=== PATIENT | male | born 1965 | race African-American/Black ===

== ENCOUNTER 2017-01-26 22:05 | Emergency (ER) | payer SELFPAY ==
[~2017-01-26] VITALS: Ht 175.3 cm; Wt 86.2 kg
[2017-01-26 22:31] LABS: BASO # 0.1 x10^3/uL (0.0-0.2); BASO % 1 % (0-3); EOS % 4 % (0-3); HEMATOCRIT 38.3 % (39.0-53.0); HEMOGLOBIN 12.9 g/dL (13.0-17.5); LYMPH # 2.2 x10^3/uL (1.0-4.8); LYMPH % 34 % (24-48); MEAN CORPUSCULAR HEMOGLOBIN 31 pg (25-35); MEAN CORPUSCULAR HGB CONC 34 g/dL (31-37); MEAN CORPUSCULAR VOLUME 92 fL (79-100); MONO % 9 % (0-9); NEUT % 52 % (31-73); PLATELET COUNT 193 x10^3/uL (140-400); RED BLOOD COUNT 4.17 x10^6/uL (4.30-5.70); RED CELL DISTRIBUTION WIDTH 14.3 % (11.5-14.5); WHITE BLOOD COUNT 6.5 x10^3/uL (4.0-11.0)
[2017-01-26 22:33] LABS: BILIRUBIN,URINE NEGATIVE (NEG); GLUCOSE,URINE 100 mg/dL (NEG); NITRITE,URINE NEGATIVE (NEG); PROTEIN,URINE >=300 mg/dL (NEG-TRACE)
[2017-01-26 22:41] LABS: PROTHROMBIN TIME PATIENT 12.4 SEC (11.7-14.0)
[2017-01-26 22:42] LABS: CALCIUM 8.7 mg/dL (8.5-10.1); CREATININE 2.4 mg/dL (0.7-1.3)
[2017-01-26 22:47] LABS: ALBUMIN 2.9 g/dL (3.4-5.0); ALBUMIN/GLOBULIN RATIO 0.6 (1.0-1.7); TOTAL BILIRUBIN 0.4 mg/dL (0.2-1.0); TOTAL PROTEIN 7.7 g/dL (6.4-8.2)
[2017-01-26 22:48] LABS: GFR 34.7
[2017-01-26 22:49] LABS: BACTERIA,URINE FEW /HPF (0-FEW); RBC,URINE TNTC /HPF (0-2); SQUAMOUS EPITHELIAL CELL,UR FEW /LPF; WBC,URINE >40 /HPF (0-4)
[2017-01-26] MEDS ORDERED: IV NORMAL SALINE 1000ML BAG 1,000 ML IV ONE (23:15)
[2017-01-26 23:17] VITALS: BP 173/100
[2017-01-26] MEDS ORDERED: PHENAZOPYRIDINE 200 MG TABLET. PO ONE (23:30)
--- NOTE | 2017-01-26 23:30 | PHYS DOC ---
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 Patient has history of CVA and arrhythmia is currently on Elkus. Denies fever, chills, nausea vomiting and sweats. No flank pain, lower abdominal pain, urinary retention. Denies history is of kidney stones. Patient denies previous urinary tract infections, STI's or prostatitis. No other acute symptoms or complaints. Review of Systems Review of Systems Review symptoms as per history of present illness. Current Medications Current Medications Current Medications Medications (Trade) Dose Ordered Sig/Melania Start Time Stop Time Status Last Admin Dose Admin Ceftriaxone Sodium 1 gm/ Sodium Chloride 50 ml @ 100 mls/hr Q24H 01/27/17 23:00 Ceftriaxone Sodium 50 ml @ 100 mls/hr 1X ONCE 01/26/17 23:30 01/26/17 23:59 DC 01/26/17 23:16 100 MLS/HR Phenazopyridine HCl (Pyridium) 200 mg 1X ONCE 01/26/17 23:30 01/26/17 23:31 DC 01/26/17 23:17 200 MG Sodium Chloride 1,000 ml @ 1,000 mls/hr 1X ONCE 01/26/17 23:15 01/27/17 00:14 01/26/17 23:17 1,000 MLS/HR Allergies Allergies Allergies Coded Allergies Type Severity Reaction Last Updated Verified vancomycin Allergy Intermediate 01/26/17 Yes Physical Exam Physical Exam Constitutional: Well developed, well nourished, no acute distress, non-toxic appearance. [] HENT: Normocephalic, atraumatic, bilateral external ears normal, oropharynx moist, no oral exudates, nose normal. [] Eyes: PERRLA, EOMI, conjunctiva normal, no discharge. [] Neck: Normal range of motion, no tenderness, supple, no stridor. [] Cardiovascular:Heart rate regular rhythm, no murmur [] Lungs & Thorax: Bilateral breath sounds clear to auscultation [] Abdomen: Bowel sounds normal, soft, suprapubic pain, tenderness. [] Skin: Warm, dry, no erythema, no rash. [] Back: No tenderness, no CVA tenderness. [] Extremities: No tenderness, left lower extremity walking boot[] Neurologic: Alert and oriented X 3, normal motor function, normal sensory function, no focal deficits noted. [] Psychologic: Affect normal, judgement normal, mood normal. [] Current Patient Data Vital Signs Vital Signs Date Time Temp Pulse Resp B/P (MAP) Pulse Ox O2 Delivery O2 Flow Rate FiO2 01/26/17 23:17 86 25 173/100 (124) 99 Room Air 01/26/17 22:20 98.4 98.4 Lab Values Laboratory Tests Test 01/26/17 22:00 01/26/17 22:23 Urine Collection Type Unknown Urine Color Yi Urine Clarity Cloudy Urine pH 6.0 Urine Specific [place] 1.020 Urine Protein >=300 mg/dL (NEG-TRACE) Urine Glucose (UA) 100 mg/dL (NEG) Urine Ketones (Stick) Negative mg/dL (NEG) Urine Blood Large (NEG) Urine Nitrite Negative (NEG) Urine Bilirubin Negative (NEG) Urine Urobilinogen Dipstick 1.0 mg/dL (0.2 mg/dL) Urine Leukocyte Esterase Moderate (NEG) Urine RBC Tntc /HPF (0-2) Urine WBC >40 /HPF (0-4) Urine Squamous Epithelial Cells Few /LPF Urine Bacteria Few /HPF (0-FEW) Urine Hyaline Casts Moderate /HPF White Blood Count 6.5 x10^3/uL (4.0-11.0) Red Blood Count 4.17 x10^6/uL (4.30-5.70) L Hemoglobin 12.9 g/dL (13.0-17.5) L Hematocrit 38.3 % (39.0-53.0) L Mean Corpuscular Volume 92 fL (79-100) Mean Corpuscular Hemoglobin 31 pg (25-35) Mean Corpuscular Hemoglobin Concent 34 g/dL (31-37) Red Cell Distribution Width 14.3 % (11.5-14.5) Platelet Count 193 x10^3/uL (140-400) Neutrophils (%) (Auto) 52 % (31-73) Lymphocytes (%) (Auto) 34 % (24-48) Monocytes (%) (Auto) 9 % (0-9) Eosinophils (%) (Auto) 4 % (0-3) H Basophils (%) (Auto) 1 % (0-3) Neutrophils # (Auto) 3.4 x10^3uL (1.8-7.7) Lymphocytes # (Auto) 2.2 x10^3/uL (1.0-4.8) Monocytes # (Auto) 0.6 x10^3/uL (0.0-1.1) Eosinophils # (Auto) 0.2 x10^3/uL (0.0-0.7) Basophils # (Auto) 0.1 x10^3/uL (0.0-0.2) Prothrombin Time 12.4 SEC (11.7-14.0) Prothrombin Time INR 1.0 (0.8-1.1) Sodium Level 139 mmol/L (136-145) Potassium Level 4.0 mmol/L (3.5-5.1) Chloride Level 103 mmol/L (98-107) Carbon Dioxide Level 31 mmol/L (21-32) Anion Gap 5 (6-14) L Blood Urea Nitrogen 23 mg/dL (8-26) Creatinine 2.4 mg/dL (0.7-1.3) H Estimated GFR (Cockcroft-Gault) 34.7 BUN/Creatinine Ratio 10 (6-20) Glucose Level 193 mg/dL (70-99) H Calcium Level 8.7 mg/dL (8.5-10.1) Total Bilirubin 0.4 mg/dL (0.2-1.0) Aspartate Amino Transferase (AST) 17 U/L (15-37) Alanine Aminotransferase (ALT) 23 U/L (16-63) Alkaline Phosphatase 149 U/L (46-116) H Total Protein 7.7 g/dL (6.4-8.2) Albumin 2.9 g/dL (3.4-5.0) L Albumin/Globulin Ratio 0.6 (1.0-1.7) L Laboratory Tests 01/26/17 22:23 Laboratory Tests 01/26/17 22:23 EKG EKG [] Radiology/Procedures Radiology/Procedures [] Course & Med Decision Making Course & Med Decision Making Pertinent Labs and Imaging studies reviewed. (See chart for details) [Patient with hematuria with probable urinary tract infection. No evidence of urinary retention. IV fluids antibiotics given. Patient is on Eloquis. He is instructed to up with PCP or urologist and real estate developer at [facility] regarding continuing Eloquis. In the meantime, he is instructed that should he develop new or worsening symptoms that he must return to the emergency department. Patient verbalizes understanding and agreement with discharge instructions prior to departure. Dragon Disclaimer Dragon Disclaimer This electronic medical record was generated, in whole or in part, using a voice recognition dictation system. Departure Departure Impression: Primary Impression: Hematuria Additional Impression: Urinary tract infection Disposition: HOME, SELF-CARE Condition: GOOD Referrals: NO PCP (PCP) Problem Qualifiers BRIAN OVIEDO DO Jan 26, 2017 23:30
== END 2017-01-27 00:30 | disposition home or self-care (01) ==
LOC: ER 22:47
DX: N39.0 Urinary tract infection, site not specified (principal); E10.9 Type 1 diabetes mellitus without complications; Z88.1 Allergy status to other antibiotic agents; Z86.73 Personal history of transient ischemic attack (TIA), and cerebral infarction without residual deficits; Z89.422 Acquired absence of other left toe(s)
CPT/HCPCS: 36415; 80053; 81001; 85025; 85610; 87086; 96365; 99284; J0690; J7030

== ENCOUNTER 2017-07-15 16:51 | Inpatient (IN) | payer OTHER, BC ==
[2017-07-15 17:33] LABS: ADD MAN DIFF? NO
[2017-07-15 17:35] LABS: BASO % 1 % (0-3); EOS # 0.2 x10^3/uL (0.0-0.7); EOS % 4 % (0-3); HEMATOCRIT 31.5 % (39.0-53.0); HEMOGLOBIN 10.6 g/dL (13.0-17.5); LYMPH # 1.8 x10^3/uL (1.0-4.8); LYMPH % 30 % (24-48); MEAN CORPUSCULAR HEMOGLOBIN 31 pg (25-35); MEAN CORPUSCULAR HGB CONC 34 g/dL (31-37); MEAN CORPUSCULAR VOLUME 91 fL (79-100); MONO # 0.4 x10^3/uL (0.0-1.1); MONO % 7 % (0-9); NEUT # 3.4 x10^3uL (1.8-7.7); NEUT % 58 % (31-73); PLATELET COUNT 207 x10^3/uL (140-400); RED BLOOD COUNT 3.45 x10^6/uL (4.30-5.70); RED CELL DISTRIBUTION WIDTH 14.3 % (11.5-14.5); WHITE BLOOD COUNT 5.9 x10^3/uL (4.0-11.0)
[2017-07-15] MEDS: hydrALAZINE 20 MG/ML VIAL. IVP (17:35)
[2017-07-15 17:43] LABS: BILIRUBIN,URINE NEGATIVE (NEG); CLARITY,URINE CLEAR; COLOR,URINE YELLOW; GLUCOSE,URINE 250 mg/dL (NEG); NITRITE,URINE NEGATIVE (NEG); PH,URINE 5.5; PROTEIN,URINE >=300 mg/dL (NEG-TRACE); UROBILINOGEN,URINE 0.2 mg/dL (0.2 mg/dL)
[2017-07-15 17:51] LABS: ANION GAP 11 (6-14); BLOOD UREA NITROGEN 20 mg/dL (8-26); CALCIUM 8.8 mg/dL (8.5-10.1); CARBON DIOXIDE 25 mmol/L (21-32); CHLORIDE 103 mmol/L (98-107); CREATININE 1.7 mg/dL (0.7-1.3); GFR 51.7; GLUCOSE 199 mg/dL (70-99); MAGNESIUM 1.7 mg/dL (1.8-2.4); POTASSIUM 3.7 mmol/L (3.5-5.1); SODIUM 139 mmol/L (136-145)
[2017-07-15 17:56] LABS: BARBITURATES NEG (NEG); BENZODIAZEPINES NEG (NEG); CANNABINOIDS NEG (NEG); COCAINE NEG (NEG); METHADONE NEG (NEG); OPIATES NEG (NEG); PHENCYCLIDINE NEG (NEG)
[2017-07-15 18:02] LABS: AMPHETAMINE/METHAMPHETAMINE NEG (NEG); ETHANOL, URINE NEG (NEG)
[2017-07-15 18:04] LABS: BACTERIA,URINE 0 /HPF (0-FEW); RBC,URINE OCC /HPF (0-2); WBC,URINE 0 /HPF (0-4)
[2017-07-15 18:19] LABS: TROPONINI 1.255 ng/mL (0.000-0.055)
[2017-07-15 18:22] LABS: CKMB INDEX 1.6 % (0-4); CKMB MASS 2.4 ng/mL (0.0-3.6); CREATINE KINASE 148 U/L (39-308)
[2017-07-15 19:08] LABS: ALBUMIN 2.9 g/dL (3.4-5.0); ALK PHOS 139 U/L (46-116); ALT (SGPT) 21 U/L (16-63); AST (SGOT) 20 U/L (15-37); DIRECT BILIRUBIN 0.1 mg/dL (0.0-0.2); TOTAL BILIRUBIN 0.5 mg/dL (0.2-1.0); TOTAL PROTEIN 7.7 g/dL (6.4-8.2)
[2017-07-15] MEDS ORDERED: IV NORMAL SALINE 1000ML BAG 1,000 ML IV (19:41)
[2017-07-15] MEDS ORDERED: ACETAMINOPHEN 325 MG TABLET. PO (19:45)
[2017-07-15] MEDS ORDERED: ONDANSETRON PF 4 MG/2 ML VIAL. IV (19:45)
[2017-07-15 21:00] LABS: POC GLUCOSE 230 mg/dL (70-99)
[2017-07-15] MEDS ORDERED: DEXTROSE 50% 25 GM / 50ML DISP.SYRIN. IV (21:15)
[2017-07-15] MEDS: INSULIN DETEMIR 300 UNITS/3 ML INSULN.PEN. SQ (21:57)
[2017-07-15] MEDS: INSULIN ASPART 300 UNITS/3 ML INSULN.PEN SQ ×2 (22:15→22:16)
[2017-07-15 22:55] LABS: TROPONINI 1.176 ng/mL (0.000-0.055)
[2017-07-16] MEDS ORDERED: HYDROcodone/APAP 7.5/325MG 1 TAB TABLET PO (00:15)
[2017-07-16] MEDS ORDERED: traMADol 50 MG TABLET PO (00:15)
[2017-07-16] MEDS ORDERED: DOCUSATE SODIUM 100 MG CAPSULE. PO (00:15)
[2017-07-16 01:52] LABS: ADD MAN DIFF? NO
[2017-07-16 01:54] LABS: BASO # 0.1 x10^3/uL (0.0-0.2); BASO % 1 % (0-3); EOS # 0.2 x10^3/uL (0.0-0.7); EOS % 4 % (0-3); HEMATOCRIT 30.1 % (39.0-53.0); HEMOGLOBIN 10.4 g/dL (13.0-17.5); LYMPH # 1.5 x10^3/uL (1.0-4.8); LYMPH % 25 % (24-48); MEAN CORPUSCULAR HEMOGLOBIN 31 pg (25-35); MEAN CORPUSCULAR HGB CONC 35 g/dL (31-37); MEAN CORPUSCULAR VOLUME 90 fL (79-100); MONO # 0.4 x10^3/uL (0.0-1.1); MONO % 7 % (0-9); NEUT # 3.8 x10^3uL (1.8-7.7); NEUT % 63 % (31-73); PLATELET COUNT 208 x10^3/uL (140-400); RED BLOOD COUNT 3.34 x10^6/uL (4.30-5.70); RED CELL DISTRIBUTION WIDTH 14.5 % (11.5-14.5); WHITE BLOOD COUNT 6.1 x10^3/uL (4.0-11.0)
[2017-07-16 02:09] LABS: ANION GAP 9 (6-14); BLOOD UREA NITROGEN 26 mg/dL (8-26); CALCIUM 8.4 mg/dL (8.5-10.1); CARBON DIOXIDE 26 mmol/L (21-32); CHLORIDE 107 mmol/L (98-107); CREATININE 1.9 mg/dL (0.7-1.3); GFR 45.4; GLUCOSE 129 mg/dL (70-99); POTASSIUM 3.6 mmol/L (3.5-5.1); SODIUM 142 mmol/L (136-145)
[2017-07-16 02:19] LABS: TROPONINI 1.065 ng/mL (0.000-0.055)
[2017-07-16] MEDS: ANTI-COAG MONITOR BY PHARMACY. MC ×2 (03:46→14:28)
[2017-07-16] MEDS: INSULIN ASPART 300 UNITS/3 ML INSULN.PEN SQ ×7 (07:30→21:00)
[2017-07-16 08:45] LABS: POC GLUCOSE 110 mg/dL (70-99)
[2017-07-16] MEDS: LISINOPRIL 20 MG TABLET PO ×2 (08:56→21:05)
[2017-07-16] MEDS: CARVEDILOL 12.5 MG TABLET. PO ×2 (08:57→18:03)
[2017-07-16] MEDS: PANTOPRAZOLE 40 MG TABLET.DR. PO (08:58)
[2017-07-16] MEDS: APIXABAN 5 MG TABLET. PO ×2 (08:58→21:06)
[2017-07-16] MEDS: amLODIPine BESYLATE 5 MG TABLET PO ×2 (08:59→18:02)
[2017-07-16 09:25] LABS: CHOLESTEROL 211 mg/dL (0-200); HDLC 38 mg/dL (40-60); LDLC 130 mg/dL (0-100); NON-HDL CHOLESTEROL 173 mg/dL (0-129); TRIGLYCERIDES 213 mg/dL (0-150); VLDLC 43 mg/dL (0-40)
[2017-07-16 09:25] LABS: MAGNESIUM 1.8 mg/dL (1.8-2.4)
[2017-07-16 09:27] LABS: CHOLESTEROL/HDL RATIO 5.6
[2017-07-16 09:34] LABS: THYROID STIM HORMONE (TSH) 1.107 uIU/mL (0.358-3.74)
[2017-07-16 12:32] LABS: POC GLUCOSE 245 mg/dL (70-99)
[2017-07-16] MEDS ORDERED: MAGNESIUM SULFATE 2GM 50 ML IV (16:00)
[2017-07-16 17:46] LABS: POC GLUCOSE 90 mg/dL (70-99)
[2017-07-16 18:16] LABS: HEMOGLOBIN A1C 8.3 % (4.8-5.6)
[2017-07-16] MEDS ORDERED: ATORVASTATIN CALCIUM 10 MG TABLET. PO (21:00)
[2017-07-16] MEDS: ATORVASTATIN CALCIUM 40 MG TABLET. PO (21:05)
[2017-07-16] MEDS: INSULIN DETEMIR 300 UNITS/3 ML INSULN.PEN. SQ (21:10)
[2017-07-16 21:17] LABS: POC GLUCOSE 221 mg/dL (70-99)
[2017-07-16 23:11] LABS: MRSA BY PCR Negative (Negative)
[2017-07-17 03:51] LABS: HEMOGLOBIN 9.3 g/dL (13.0-17.5)
[2017-07-17 04:12] LABS: ALBUMIN 2.3 g/dL (3.4-5.0); ANION GAP 9 (6-14); BLOOD UREA NITROGEN 27 mg/dL (8-26); CALCIUM 8.2 mg/dL (8.5-10.1); CARBON DIOXIDE 24 mmol/L (21-32); CHLORIDE 106 mmol/L (98-107); CREATININE 2.3 mg/dL (0.7-1.3); GFR 36.5; GLUCOSE 195 mg/dL (70-99); MAGNESIUM 1.8 mg/dL (1.8-2.4); PHOSPHORUS 3.7 mg/dL (2.6-4.7); POTASSIUM 4.2 mmol/L (3.5-5.1); SODIUM 139 mmol/L (136-145)
[2017-07-17] MEDS: INSULIN ASPART 300 UNITS/3 ML INSULN.PEN SQ ×7 (07:30→21:00)
[2017-07-17] MEDS: ANTI-COAG MONITOR BY PHARMACY. MC (08:36)
[2017-07-17 08:42] LABS: POC GLUCOSE 126 mg/dL (70-99)
[2017-07-17] MEDS: REGADENOSON 0.4 MG/5 ML DISP.SYRIN. IV (10:18)
[2017-07-17] MEDS: PANTOPRAZOLE 40 MG TABLET.DR. PO (11:39)
[2017-07-17] MEDS: APIXABAN 5 MG TABLET. PO ×2 (11:39→21:12)
[2017-07-17] MEDS: ASPIRIN ENTERIC COATED 81 MG TABLET.DR. PO (11:39)
[2017-07-17] MEDS: CARVEDILOL 12.5 MG TABLET. PO ×2 (11:40→17:43)
[2017-07-17] MEDS: LISINOPRIL 20 MG TABLET PO ×2 (11:40→21:12)
[2017-07-17] MEDS: amLODIPine BESYLATE 10 MG TABLET PO (11:41)
[2017-07-17 17:41] LABS: POC GLUCOSE 322 mg/dL (70-99)
[2017-07-17] MEDS: ATORVASTATIN CALCIUM 40 MG TABLET. PO (21:12)
[2017-07-17 21:39] LABS: POC GLUCOSE 61 mg/dL (70-99)
[2017-07-17 21:39] LABS: POC GLUCOSE 58 mg/dL (70-99)
[2017-07-17 21:39] LABS: POC GLUCOSE 71 mg/dL (70-99)
[2017-07-17] MEDS: INSULIN DETEMIR 300 UNITS/3 ML INSULN.PEN. SQ (23:11)
[2017-07-17 23:12] LABS: POC GLUCOSE 124 mg/dL (70-99)
[2017-07-18 05:45] LABS: ALBUMIN 2.4 g/dL (3.4-5.0); ANION GAP 5 (6-14); BLOOD UREA NITROGEN 29 mg/dL (8-26); CALCIUM 8.1 mg/dL (8.5-10.1); CARBON DIOXIDE 27 mmol/L (21-32); CHLORIDE 110 mmol/L (98-107); CREATININE 2.1 mg/dL (0.7-1.3); GFR 40.5; GLUCOSE 111 mg/dL (70-99); MAGNESIUM 1.8 mg/dL (1.8-2.4); PHOSPHORUS 4.1 mg/dL (2.6-4.7); POTASSIUM 4.1 mmol/L (3.5-5.1); SODIUM 142 mmol/L (136-145)
[2017-07-18] MEDS: INSULIN ASPART 300 UNITS/3 ML INSULN.PEN SQ ×6 (07:30→18:04)
[2017-07-18 08:13] LABS: POC GLUCOSE 46 mg/dL (70-99)
[2017-07-18] MEDS: CARVEDILOL 12.5 MG TABLET. PO ×2 (09:15→18:00)
[2017-07-18] MEDS: amLODIPine BESYLATE 10 MG TABLET PO (09:15)
[2017-07-18] MEDS: LISINOPRIL 20 MG TABLET PO (09:15)
[2017-07-18] MEDS: ASPIRIN ENTERIC COATED 81 MG TABLET.DR. PO (09:15)
[2017-07-18] MEDS: PANTOPRAZOLE 40 MG TABLET.DR. PO (09:15)
[2017-07-18] MEDS: APIXABAN 5 MG TABLET. PO (09:15)
[2017-07-18 11:38] LABS: POC GLUCOSE 73 mg/dL (70-99)
[2017-07-18 11:48] LABS: POC GLUCOSE 194 mg/dL (70-99)
[2017-07-18 12:17] LABS: IMMUNOGLOBULIN A 234 mg/dL (90-386); IMMUNOGLOBULIN G 1518 mg/dL (700-1600); IMMUNOGLOBULIN M 121 mg/dL (20-172)
[2017-07-18 17:10] LABS: POC GLUCOSE 219 mg/dL (70-99)
[2017-07-18 18:12] LABS: PROTEIN 24 HR UR 5092 (30-150); UR PROTEIN 214.4 mg/dL (Not Estab.)
[2017-07-18] MEDS ORDERED: LISINOPRIL 20 MG TABLET PO (21:00)
[2017-07-19 20:10] LABS: TOTAL PROTEIN CREATININE RATIO 3417 mg/g creat (0-200); UR CREATININE RD 61.7 mg/dL (Not Estab.); UR PROTEIN RD 210.8 mg/dL (Not Estab.)
[2017-07-21 14:14] LABS: METANEPH UR 50 ug/L (Undefined); NORMETANEPHRINES UR 208 ug/L (Undefined); TOTAL METANEPHRINES UR 119 ug/24 hr (45-290)
== END 2017-07-18 18:10 | disposition home or self-care (01) | DRG 682 ==
LOC: 2 NORTH 07-17 13:34 → ER 16:51 → 1 WEST ICU 19:29
DX: I12.9 Hypertensive chronic kidney disease with stage 1 through stage 4 chronic kidney disease, or unspecified chronic kidney disease (principal); I21.A1 Myocardial infarction type 2; N17.9 Acute kidney failure, unspecified; J81.1 Chronic pulmonary edema; E44.0 Moderate protein-calorie malnutrition; E10.22 Type 1 diabetes mellitus with diabetic chronic kidney disease; I48.0 Paroxysmal atrial fibrillation; I69.351 Hemiplegia and hemiparesis following cerebral infarction affecting right dominant side; E78.5 Hyperlipidemia, unspecified; F17.290 Nicotine dependence, other tobacco product, uncomplicated; J40 Bronchitis, not specified as acute or chronic; N18.9 Chronic kidney disease, unspecified; Z79.01 Long term (current) use of anticoagulants; Z79.4 Long term (current) use of insulin; Z79.899 Other long term (current) drug therapy; Z91.19 Patient's noncompliance with other medical treatment and regimen; M19.90 Unspecified osteoarthritis, unspecified site; Z68.29 Body mass index [BMI] 29.0-29.9, adult
CPT/HCPCS: 36415; 71045; 76770; 78452; 80048; 80061; 80069; 80076; 80307; 81001; 82553; 82570; 82962; 83036; 83735; 83835; 84156; 84166; 84443; 84484; 85018; 85025; 86334; 87641; 93005; 93017; 93306; 93975; 96374; 96375; 96376; 99291-25; A9500; J0360; J1815; J2785; J7050

== ENCOUNTER 2017-10-02 02:26 | Inpatient (IN) | payer BC, OTHER ==
[2017-10-02 03:08] LABS: BASO % 0 % (0-3); EOS % 1 % (0-3); HEMATOCRIT 28.8 % (39.0-53.0); LYMPH # 0.3 x10^3/uL (1.0-4.8); LYMPH % 8 % (24-48); MEAN CORPUSCULAR HEMOGLOBIN 31 pg (25-35); MEAN CORPUSCULAR HGB CONC 35 g/dL (31-37); MEAN CORPUSCULAR VOLUME 89 fL (79-100); MONO % 1 % (0-9); NEUT # 3.6 x10^3uL (1.8-7.7); NEUT % 90 % (31-73); PLATELET COUNT 196 x10^3/uL (140-400); RED BLOOD COUNT 3.22 x10^6/uL (4.30-5.70); RED CELL DISTRIBUTION WIDTH 14.7 % (11.5-14.5)
[2017-10-02 03:15] LABS: ADD MAN DIFF? YES
[2017-10-02 03:24] LABS: ANION GAP 11 (6-14); BLOOD UREA NITROGEN 20 mg/dL (8-26); BUN/CREATININE RATIO 10 (6-20); CALCIUM 8.1 mg/dL (8.5-10.1); CARBON DIOXIDE 26 mmol/L (21-32); CHLORIDE 106 mmol/L (98-107); GFR 42.8; GLUCOSE 69 mg/dL (70-99); POTASSIUM 3.1 mmol/L (3.5-5.1); SODIUM 143 mmol/L (136-145)
[2017-10-02 03:32] LABS: LACTIC ACID 1.2 mmol/L (0.4-2.0)
[2017-10-02 03:34] LABS: TROPONINI 0.407 ng/mL (0.000-0.055)
[2017-10-02] MEDS: ACETAMINOPHEN 325 MG TABLET. PO ×2 (03:35→16:35)
[2017-10-02 03:38] LABS: ALBUMIN 2.7 g/dL (3.4-5.0); ALBUMIN/GLOBULIN RATIO 0.6 (1.0-1.7); ALK PHOS 168 U/L (46-116); ALT (SGPT) 23 U/L (16-63); AST (SGOT) 21 U/L (15-37); TOTAL BILIRUBIN 0.5 mg/dL (0.2-1.0); TOTAL PROTEIN 7.6 g/dL (6.4-8.2)
[2017-10-02] MEDS: IV NORMAL SALINE 1000ML BAG 1,000 ML IV (03:45)
[2017-10-02] MEDS: ASPIRIN CHEWABLE 81 MG TABLET. PO ×2 (03:45→11:13)
[2017-10-02 04:14] LABS: % BANDS 4 % (0-9); % LYMPHS 13 % (24-48); % SEGS 83 % (35-66); PLT ESTIMATE ADEQUATE (ADEQUATE)
[2017-10-02] MEDS: IOHEXOL 300 MG/ML 100ML VIAL. IV (04:27)
[2017-10-02] MEDS ORDERED: CONTRAST GIVEN MC (04:30)
[2017-10-02] MEDS ORDERED: MORPHINE SULFATE 4 MG/ML DISP.SYRIN. IV ×2 (06:00→11:00)
[2017-10-02] MEDS ORDERED: ONDANSETRON PF 4 MG/2 ML VIAL. IV ×2 (06:00→11:00)
[2017-10-02 06:35] LABS: POC GLUCOSE 194 mg/dL (70-99)
[2017-10-02] MEDS: POTASSIUM CHLORIDE 20 MEQ TABLET.ER. PO (06:43)
[2017-10-02 07:55] LABS: POC GLUCOSE 185 mg/dL (70-99)
[2017-10-02 09:51] LABS: TROPONINI 0.378 ng/mL (0.000-0.055)
[2017-10-02 10:17] LABS: NT-PRO BNP 11099 pg/mL (0-124)
[2017-10-02] MEDS: amLODIPine BESYLATE 10 MG TABLET PO (11:00)
[2017-10-02] MEDS ORDERED: DOCUSATE SODIUM 100 MG CAPSULE. PO ×2 (11:00)
[2017-10-02] MEDS ORDERED: ACETAMINOPHEN 325 MG TABLET. PO (11:00)
[2017-10-02] MEDS ORDERED: hydrALAZINE 20 MG/ML VIAL. IVP (11:00)
[2017-10-02] MEDS ORDERED: traMADol 50 MG TABLET PO (11:00)
[2017-10-02] MEDS ORDERED: DEXTROSE 50% 25 GM / 50ML DISP.SYRIN. IV (11:15)
[2017-10-02] MEDS: MICAFUNGIN 100 MG in IV DEXTROSE 5% 100 ML IV (11:30)
[2017-10-02] MEDS: APIXABAN 5 MG TABLET. PO ×2 (11:30→21:46)
[2017-10-02 11:36] LABS: POC GLUCOSE 184 mg/dL (70-99)
[2017-10-02] MEDS: LISINOPRIL 20 MG TABLET PO ×2 (12:00→21:47)
[2017-10-02] MEDS: MEROPENEM 500 MG in IV NORMAL SALINE 50ML 50 ML IV ×2 (12:00→17:59)
[2017-10-02] MEDS: PANTOPRAZOLE 40 MG TABLET.DR. PO (12:00)
[2017-10-02] MEDS: INSULIN LISPRO 300 UNITS/3 ML INSULN.PEN. SQ ×4 (12:00→17:00)
[2017-10-02] MEDS ORDERED: HEPARIN PF for SUB-Q USE 5,000 UNIT/0.5 ML VIAL. SQ (14:00)
[2017-10-02] MEDS: FUROSEMIDE 40 MG TABLET. PO (14:50)
[2017-10-02] MEDS: DAPTOmycin 540 MG in IV NORMAL SALINE 50ML 50 ML IV (14:50)
[2017-10-02] MEDS ORDERED: ALBUTEROL SULFATE 2.5 MG/3 ML NEBU. NEB (15:30)
[2017-10-02] MEDS ORDERED: ALPRAZolam 0.25 MG TABLET PO (15:30)
[2017-10-02 17:40] LABS: POC GLUCOSE 138 mg/dL (70-99)
[2017-10-02] MEDS: CARVEDILOL 12.5 MG TABLET. PO (17:59)
[2017-10-02] MEDS: FUROSEMIDE 40 MG/4 ML VIAL. IVP (17:59)
[2017-10-02 21:07] LABS: POC GLUCOSE 221 mg/dL (70-99)
[2017-10-02] MEDS: ATORVASTATIN CALCIUM 40 MG TABLET. PO (21:47)
[2017-10-02] MEDS: INSULIN GLARGINE 300 UNITS/3 ML INSULN.PEN. SQ (21:50)
[2017-10-03] MEDS: MEROPENEM 500 MG in IV NORMAL SALINE 50ML 50 ML IV ×5 (00:09→23:57)
[2017-10-03] MEDS: HYDROcodone/APAP 7.5/325MG 1 TAB TABLET PO (04:37)
[2017-10-03] MEDS ORDERED: APIXABAN 5 MG TABLET. (07:30)
[2017-10-03] MEDS ORDERED: amLODIPine BESYLATE 10 MG TABLET (07:30)
[2017-10-03] MEDS ORDERED: PANTOPRAZOLE 40 MG TABLET.DR. PO (07:30)
[2017-10-03] MEDS ORDERED: LISINOPRIL 20 MG TABLET (07:30)
[2017-10-03] MEDS ORDERED: ASPIRIN CHEWABLE 81 MG TABLET. (07:30)
[2017-10-03] MEDS ORDERED: FUROSEMIDE 40 MG TABLET. (07:30)
[2017-10-03] MEDS ORDERED: DOCUSATE SODIUM 100 MG CAPSULE. PO (07:30)
[2017-10-03] MEDS: PANTOPRAZOLE 40 MG TABLET.DR. PO (07:30)
[2017-10-03] MEDS: CARVEDILOL 12.5 MG TABLET. PO ×2 (08:00→17:22)
[2017-10-03] MEDS: INSULIN LISPRO 300 UNITS/3 ML INSULN.PEN. SQ ×6 (08:00→17:28)
[2017-10-03] MEDS: ASPIRIN CHEWABLE 81 MG TABLET. PO (08:00)
[2017-10-03 08:13] LABS: POC GLUCOSE 107 mg/dL (70-99)
[2017-10-03 08:45] LABS: ADD MAN DIFF? NO
[2017-10-03] MEDS: APIXABAN 5 MG TABLET. PO (09:00)
[2017-10-03] MEDS: LACTOBACILLUS RHAMNOSUS GG 1 CAPSULE. PO ×2 (09:00→20:39)
[2017-10-03] MEDS: amLODIPine BESYLATE 10 MG TABLET PO (09:00)
[2017-10-03] MEDS: FUROSEMIDE 40 MG TABLET. PO (09:00)
[2017-10-03] MEDS: LISINOPRIL 20 MG TABLET PO ×2 (09:00→20:39)
[2017-10-03 09:03] LABS: ANION GAP 8 (6-14); BASO % 0 % (0-3); BLOOD UREA NITROGEN 22 mg/dL (8-26); CALCIUM 7.9 mg/dL (8.5-10.1); CARBON DIOXIDE 24 mmol/L (21-32); CHLORIDE 105 mmol/L (98-107); CREATININE 2.3 mg/dL (0.7-1.3); EOS # 0.1 x10^3/uL (0.0-0.7); EOS % 2 % (0-3); GFR 36.5; GLUCOSE 101 mg/dL (70-99); HEMATOCRIT 22.8 % (39.0-53.0); HEMOGLOBIN 7.9 g/dL (13.0-17.5); LYMPH # 0.6 x10^3/uL (1.0-4.8); LYMPH % 8 % (24-48); MEAN CORPUSCULAR HEMOGLOBIN 31 pg (25-35); MEAN CORPUSCULAR HGB CONC 35 g/dL (31-37); MEAN CORPUSCULAR VOLUME 90 fL (79-100); MONO # 0.4 x10^3/uL (0.0-1.1); MONO % 5 % (0-9); NEUT # 6.9 x10^3uL (1.8-7.7); NEUT % 85 % (31-73); PLATELET COUNT 150 x10^3/uL (140-400); RED BLOOD COUNT 2.53 x10^6/uL (4.30-5.70); RED CELL DISTRIBUTION WIDTH 14.4 % (11.5-14.5); SODIUM 137 mmol/L (136-145); WHITE BLOOD COUNT 8.1 x10^3/uL (4.0-11.0)
[2017-10-03 09:14] LABS: MAGNESIUM 1.6 mg/dL (1.8-2.4)
[2017-10-03] MEDS: POTASSIUM CHLORIDE 20 MEQ TABLET.ER. PO ×2 (10:03→11:54)
[2017-10-03] MEDS: MAGNESIUM SULFATE 2GM 50 ML IV (10:03)
[2017-10-03] MEDS ORDERED: MAGNESIUM SULFATE 2GM 50 ML IV (11:00)
[2017-10-03 11:15] LABS: POC GLUCOSE 188 mg/dL (70-99)
[2017-10-03] MEDS: MICAFUNGIN 100 MG in IV DEXTROSE 5% 100 ML IV (11:55)
[2017-10-03] MEDS: DAPTOmycin 540 MG in IV NORMAL SALINE 50ML 50 ML IV (14:00)
[2017-10-03 17:17] LABS: POC GLUCOSE 325 mg/dL (70-99)
[2017-10-03] MEDS: ATORVASTATIN CALCIUM 40 MG TABLET. PO (20:39)
[2017-10-03] MEDS: INSULIN GLARGINE 300 UNITS/3 ML INSULN.PEN. SQ (20:43)
[2017-10-03 20:53] LABS: POC GLUCOSE 349 mg/dL (70-99)
[2017-10-04] MEDS: HYDROcodone/APAP 7.5/325MG 1 TAB TABLET PO ×2 (03:40→20:54)
[2017-10-04 03:44] LABS: ADD MAN DIFF? NO
[2017-10-04 03:46] LABS: BASO % 1 % (0-3); EOS # 0.2 x10^3/uL (0.0-0.7); EOS % 5 % (0-3); HEMATOCRIT 23.4 % (39.0-53.0); HEMOGLOBIN 8.1 g/dL (13.0-17.5); LYMPH # 0.9 x10^3/uL (1.0-4.8); LYMPH % 20 % (24-48); MEAN CORPUSCULAR HEMOGLOBIN 31 pg (25-35); MEAN CORPUSCULAR HGB CONC 35 g/dL (31-37); MEAN CORPUSCULAR VOLUME 90 fL (79-100); MONO # 0.6 x10^3/uL (0.0-1.1); MONO % 12 % (0-9); NEUT # 2.9 x10^3uL (1.8-7.7); NEUT % 62 % (31-73); PLATELET COUNT 145 x10^3/uL (140-400); RED BLOOD COUNT 2.61 x10^6/uL (4.30-5.70); RED CELL DISTRIBUTION WIDTH 14.5 % (11.5-14.5); WHITE BLOOD COUNT 4.6 x10^3/uL (4.0-11.0)
[2017-10-04 03:56] LABS: ANION GAP 7 (6-14); BLOOD UREA NITROGEN 30 mg/dL (8-26); CALCIUM 7.8 mg/dL (8.5-10.1); CARBON DIOXIDE 25 mmol/L (21-32); CHLORIDE 103 mmol/L (98-107); GFR 26.8; GLUCOSE 380 mg/dL (70-99); POTASSIUM 4.4 mmol/L (3.5-5.1); SODIUM 135 mmol/L (136-145)
[2017-10-04] MEDS: MEROPENEM 500 MG in IV NORMAL SALINE 50ML 50 ML IV ×3 (05:59→18:04)
[2017-10-04 07:31] LABS: POC GLUCOSE 386 mg/dL (70-99)
[2017-10-04] MEDS: INSULIN LISPRO 300 UNITS/3 ML INSULN.PEN. SQ ×7 (08:00→17:00)
[2017-10-04] MEDS: LACTOBACILLUS RHAMNOSUS GG 1 CAPSULE. PO ×2 (08:14→20:52)
[2017-10-04] MEDS: ASPIRIN CHEWABLE 81 MG TABLET. PO (08:14)
[2017-10-04] MEDS: PANTOPRAZOLE 40 MG TABLET.DR. PO (08:14)
[2017-10-04] MEDS: traMADol 50 MG TABLET PO (08:15)
[2017-10-04] MEDS: CARVEDILOL 12.5 MG TABLET. PO ×2 (08:16→18:04)
[2017-10-04] MEDS: LISINOPRIL 20 MG TABLET PO (08:16)
[2017-10-04] MEDS: amLODIPine BESYLATE 10 MG TABLET PO (08:16)
[2017-10-04] MEDS: FUROSEMIDE 20 MG TABLET PO (08:17)
[2017-10-04] MEDS: ANTI-COAG MONITOR BY PHARMACY. MC (10:38)
[2017-10-04 10:54] LABS: POC GLUCOSE 270 mg/dL (70-99)
[2017-10-04] MEDS: APIXABAN 5 MG TABLET. PO ×2 (11:51→20:52)
[2017-10-04] MEDS: SODIUM BICARBONATE VIAL 50 MEQ in IV 1/2 NORMAL SALINE 1,000 ML IV ×2 (14:11→22:39)
[2017-10-04 17:46] LABS: POC GLUCOSE 104 mg/dL (70-99)
[2017-10-04] MEDS: ATORVASTATIN CALCIUM 40 MG TABLET. PO (20:51)
[2017-10-04] MEDS: INSULIN GLARGINE 300 UNITS/3 ML INSULN.PEN. SQ (21:00)
[2017-10-04 21:20] LABS: POC GLUCOSE 142 mg/dL (70-99)
[2017-10-05] MEDS: MEROPENEM 500 MG in IV NORMAL SALINE 50ML 50 ML IV ×5 (00:14→23:52)
[2017-10-05] MEDS: diphenhydrAMINE HCL 25 MG CAPSULE PO (03:01)
[2017-10-05 04:21] LABS: ANION GAP 9 (6-14); BLOOD UREA NITROGEN 35 mg/dL (8-26); CALCIUM 7.9 mg/dL (8.5-10.1); CARBON DIOXIDE 25 mmol/L (21-32); CHLORIDE 105 mmol/L (98-107); CREATININE 2.7 mg/dL (0.7-1.3); GFR 30.3; GLUCOSE 181 mg/dL (70-99); POTASSIUM 4.6 mmol/L (3.5-5.1); SODIUM 139 mmol/L (136-145)
[2017-10-05] MEDS: LACTOBACILLUS RHAMNOSUS GG 1 CAPSULE. PO ×2 (08:26→20:07)
[2017-10-05] MEDS: PANTOPRAZOLE 40 MG TABLET.DR. PO (08:26)
[2017-10-05] MEDS: APIXABAN 5 MG TABLET. PO ×2 (08:26→20:07)
[2017-10-05] MEDS: ASPIRIN CHEWABLE 81 MG TABLET. PO (08:26)
[2017-10-05] MEDS: amLODIPine BESYLATE 10 MG TABLET PO (08:27)
[2017-10-05] MEDS: CARVEDILOL 12.5 MG TABLET. PO ×2 (08:28→17:29)
[2017-10-05] MEDS: SODIUM BICARBONATE VIAL 50 MEQ in IV 1/2 NORMAL SALINE 1,000 ML IV (08:30)
[2017-10-05] MEDS: INSULIN LISPRO 300 UNITS/3 ML INSULN.PEN. SQ ×6 (08:32→17:38)
[2017-10-05 08:42] LABS: POC GLUCOSE 197 mg/dL (70-99)
[2017-10-05] MEDS: ANTI-COAG MONITOR BY PHARMACY. MC (11:34)
[2017-10-05 11:49] LABS: POC GLUCOSE 181 mg/dL (70-99)
[2017-10-05] MEDS ORDERED: NORMAL SALINE IV (14:00)
[2017-10-05] MEDS ORDERED: DAPTOMYCIN IV (14:00)
[2017-10-05] MEDS: NORMAL SALINE IV (14:29)
[2017-10-05] MEDS: DAPTOMYCIN IV (14:29)
[2017-10-05 15:51] LABS: % SAT IRON 15 % (15-34); IRON,SERUM 34 ug/dL (65-175)
[2017-10-05 15:54] LABS: RETIC COUNT 1.7 % (0.5-2.5)
[2017-10-05 16:11] LABS: FERRITIN 111 ng/mL (26-388)
[2017-10-05 17:15] LABS: HEMOGLOBIN A1C 8.5 % (4.8-5.6)
[2017-10-05 19:09] LABS: POC GLUCOSE 134 mg/dL (70-99)
[2017-10-05 19:18] LABS: POC GLUCOSE 161 mg/dL (70-99)
[2017-10-05] MEDS: ATORVASTATIN CALCIUM 40 MG TABLET. PO (20:07)
[2017-10-05] MEDS: DARBEPOETIN ALFA 60 MCG/0.3 ML DISP.SYRIN. SQ (20:08)
[2017-10-05 20:53] LABS: POC GLUCOSE 118 mg/dL (70-99)
[2017-10-05] MEDS: INSULIN GLARGINE 300 UNITS/3 ML INSULN.PEN. SQ (20:57)
[2017-10-05 21:14] LABS: BILIRUBIN,URINE NEGATIVE (NEG); CLARITY,URINE CLEAR; COLOR,URINE YELLOW; GLUCOSE,URINE NEGATIVE (NEG); NITRITE,URINE NEGATIVE (NEG); PH,URINE 5.5; PROTEIN,URINE 100 mg/dL (NEG-TRACE); UROBILINOGEN,URINE 0.2 mg/dL (0.2 mg/dL)
[2017-10-05 21:48] LABS: RBC,URINE OCC /HPF (0-2)
[2017-10-05 21:49] LABS: BACTERIA,URINE FEW /HPF (0-FEW); HYALINE CASTS, URINE MODERATE /HPF; SQUAMOUS EPITHELIAL CELL,UR FEW /LPF
[2017-10-06 05:18] LABS: ADD MAN DIFF? NO; BASO # 0.1 x10^3/uL (0.0-0.2); BASO % 1 % (0-3); EOS # 0.3 x10^3/uL (0.0-0.7); EOS % 7 % (0-3); HEMATOCRIT 26.4 % (39.0-53.0); LYMPH # 1.6 x10^3/uL (1.0-4.8); LYMPH % 32 % (24-48); MEAN CORPUSCULAR HEMOGLOBIN 31 pg (25-35); MEAN CORPUSCULAR HGB CONC 34 g/dL (31-37); MEAN CORPUSCULAR VOLUME 89 fL (79-100); MONO # 0.4 x10^3/uL (0.0-1.1); MONO % 9 % (0-9); NEUT # 2.5 x10^3uL (1.8-7.7); NEUT % 51 % (31-73); PLATELET COUNT 210 x10^3/uL (140-400); RED BLOOD COUNT 2.95 x10^6/uL (4.30-5.70); RED CELL DISTRIBUTION WIDTH 14.5 % (11.5-14.5); WHITE BLOOD COUNT 4.9 x10^3/uL (4.0-11.0)
[2017-10-06 05:41] LABS: ANION GAP 6 (6-14); BLOOD UREA NITROGEN 42 mg/dL (8-26); CALCIUM 8.3 mg/dL (8.5-10.1); CARBON DIOXIDE 27 mmol/L (21-32); CHLORIDE 105 mmol/L (98-107); CREATININE 2.8 mg/dL (0.7-1.3); GFR 29.1; GLUCOSE 280 mg/dL (70-99); SODIUM 138 mmol/L (136-145)
[2017-10-06 05:47] LABS: POTASSIUM 5.3 mmol/L (3.5-5.1)
[2017-10-06] MEDS: MEROPENEM 500 MG in IV NORMAL SALINE 50ML 50 ML IV ×4 (05:49→23:59)
[2017-10-06] MEDS: ASPIRIN CHEWABLE 81 MG TABLET. PO (08:05)
[2017-10-06] MEDS: LACTOBACILLUS RHAMNOSUS GG 1 CAPSULE. PO ×2 (08:05→20:15)
[2017-10-06] MEDS: PANTOPRAZOLE 40 MG TABLET.DR. PO (08:05)
[2017-10-06] MEDS: CARVEDILOL 12.5 MG TABLET. PO ×2 (08:06→17:23)
[2017-10-06] MEDS: amLODIPine BESYLATE 10 MG TABLET PO (08:07)
[2017-10-06 08:10] LABS: POC GLUCOSE 292 mg/dL (70-99)
[2017-10-06] MEDS: APIXABAN 5 MG TABLET. PO ×2 (08:10→20:15)
[2017-10-06] MEDS: INSULIN LISPRO 300 UNITS/3 ML INSULN.PEN. SQ ×6 (08:14→17:29)
[2017-10-06] MEDS: ANTI-COAG MONITOR BY PHARMACY. MC (11:01)
[2017-10-06 11:43] LABS: POC GLUCOSE 212 mg/dL (70-99)
[2017-10-06] MEDS: SODIUM POLYSTYRENE SULFONATE 15 GM/60 ML ORAL.SUSP. PO (11:50)
[2017-10-06] MEDS: IV NORMAL SALINE 1000ML BAG 1,000 ML IV (14:00)
[2017-10-06 14:14] LABS: TOTAL PROTEIN CREATININE RATIO 2196 mg/g creat (0-200); UR CREATININE RD 64.4 mg/dL (Not Estab.); UR PROTEIN RD 141.4 mg/dL (Not Estab.)
[2017-10-06 17:31] LABS: POC GLUCOSE 272 mg/dL (70-99)
[2017-10-06] MEDS: ATORVASTATIN CALCIUM 40 MG TABLET. PO (20:15)
[2017-10-06] MEDS: INSULIN GLARGINE 300 UNITS/3 ML INSULN.PEN. SQ (21:00)
[2017-10-06 21:03] LABS: POC GLUCOSE 160 mg/dL (70-99)
[2017-10-07] MEDS: IV NORMAL SALINE 1000ML BAG 1,000 ML IV ×2 (00:02→06:00)
[2017-10-07] MEDS: HYDROcodone/APAP 7.5/325MG 1 TAB TABLET PO (01:46)
[2017-10-07 03:48] LABS: ADD MAN DIFF? NO
[2017-10-07 04:24] LABS: ANION GAP 9 (6-14); BLOOD UREA NITROGEN 37 mg/dL (8-26); CARBON DIOXIDE 26 mmol/L (21-32); CHLORIDE 105 mmol/L (98-107); CREATININE 2.3 mg/dL (0.7-1.3); GFR 36.5; GLUCOSE 217 mg/dL (70-99); POTASSIUM 4.4 mmol/L (3.5-5.1); SODIUM 140 mmol/L (136-145)
[2017-10-07 04:37] LABS: BASO # 0.1 x10^3/uL (0.0-0.2); BASO % 1 % (0-3); EOS # 0.3 x10^3/uL (0.0-0.7); EOS % 5 % (0-3); HEMATOCRIT 26.1 % (39.0-53.0); LYMPH # 1.7 x10^3/uL (1.0-4.8); LYMPH % 34 % (24-48); MEAN CORPUSCULAR HEMOGLOBIN 31 pg (25-35); MEAN CORPUSCULAR HGB CONC 34 g/dL (31-37); MEAN CORPUSCULAR VOLUME 89 fL (79-100); MONO # 0.5 x10^3/uL (0.0-1.1); MONO % 9 % (0-9); NEUT # 2.6 x10^3uL (1.8-7.7); NEUT % 50 % (31-73); PLATELET COUNT 217 x10^3/uL (140-400); RED BLOOD COUNT 2.92 x10^6/uL (4.30-5.70); RED CELL DISTRIBUTION WIDTH 14.1 % (11.5-14.5); WHITE BLOOD COUNT 5.1 x10^3/uL (4.0-11.0)
[2017-10-07] MEDS: MEROPENEM 500 MG in IV NORMAL SALINE 50ML 50 ML IV (05:55)
[2017-10-07 07:54] LABS: POC GLUCOSE 201 mg/dL (70-99)
[2017-10-07] MEDS: ASPIRIN CHEWABLE 81 MG TABLET. PO (08:25)
[2017-10-07] MEDS: PANTOPRAZOLE 40 MG TABLET.DR. PO (08:26)
[2017-10-07] MEDS: APIXABAN 5 MG TABLET. PO (08:26)
[2017-10-07] MEDS: LACTOBACILLUS RHAMNOSUS GG 1 CAPSULE. PO (08:26)
[2017-10-07] MEDS: CARVEDILOL 12.5 MG TABLET. PO (08:27)
[2017-10-07] MEDS: amLODIPine BESYLATE 10 MG TABLET PO (08:27)
[2017-10-07] MEDS: INSULIN LISPRO 300 UNITS/3 ML INSULN.PEN. SQ ×4 (08:31→12:25)
[2017-10-07] MEDS ORDERED: IRON SUCROSE COMPLEX 200 MG in IV NORMAL SALINE 100ML 100 ML IV (09:00)
[2017-10-07] MEDS: IRON SUCROSE COMPLEX 200 MG in TOTAL VOLUME SYRINGE 1 ML IVP (09:12)
[2017-10-07 11:26] LABS: POC GLUCOSE 146 mg/dL (70-99)
[2017-10-07] MEDS ORDERED: NORMAL SALINE IV (14:00)
[2017-10-07] MEDS ORDERED: AMPICILLIN SODIUM 2 GM in IV NORMAL SALINE 100ML 100 ML IV (14:00)
[2017-10-07] MEDS ORDERED: DAPTOMYCIN IV (14:00)
[2017-10-07] MEDS: AMPICILLIN SODIUM IV Push 2 GM VIAL. IVP (14:26)
== END 2017-10-07 18:09 | disposition home or self-care (01) | DRG 871 ==
LOC: ER 02:26 → 2 NORTH 04:59
PROC: 02HV33Z Insertion of Infusion Device into Superior Vena Cava, Percutaneous Approach (ICD-10-PCS; principal; 2017-10-07)
PROC: B548ZZA Ultrasonography of Superior Vena Cava, Guidance (ICD-10-PCS; 2017-10-07)
DX: A41.50 Gram-negative sepsis, unspecified (principal); N17.0 Acute kidney failure with tubular necrosis; I21.4 Non-ST elevation (NSTEMI) myocardial infarction; I50.33 Acute on chronic diastolic (congestive) heart failure; I13.0 Hypertensive heart and chronic kidney disease with heart failure and stage 1 through stage 4 chronic kidney disease, or unspecified chronic kidney disease; J18.9 Pneumonia, unspecified organism; E11.22 Type 2 diabetes mellitus with diabetic chronic kidney disease; M86.8X7 Other osteomyelitis, ankle and foot; E11.69 Type 2 diabetes mellitus with other specified complication; D64.9 Anemia, unspecified; M19.90 Unspecified osteoarthritis, unspecified site; E78.5 Hyperlipidemia, unspecified; E83.42 Hypomagnesemia; E87.5 Hyperkalemia; E87.6 Hypokalemia; F41.9 Anxiety disorder, unspecified; I48.0 Paroxysmal atrial fibrillation; Z79.4 Long term (current) use of insulin; N18.3 Chronic kidney disease, stage 3 (moderate); Z86.73 Personal history of transient ischemic attack (TIA), and cerebral infarction without residual deficits; Z87.891 Personal history of nicotine dependence; Z88.1 Allergy status to other antibiotic agents; Z89.421 Acquired absence of other right toe(s); Z89.422 Acquired absence of other left toe(s); Z89.432 Acquired absence of left foot; Z91.19 Patient's noncompliance with other medical treatment and regimen; Z88.0 Allergy status to penicillin; Z88.8 Allergy status to other drugs, medicaments and biological substances
CPT/HCPCS: 36415; 36569; 71045; 71275; 73630; 73718; 78582; 80048; 80053; 81001; 82570; 82728; 82962; 83036; 83540; 83550; 83605; 83735; 83880; 84156; 84484; 85007; 85025; 85045; 87040; 87070; 87071; 87075; 87205; 93005; 96360; 96372; 96374; 99285; 99285-25; A9540; A9558; J0290; J0878; J0881; J1650; J1756; J1815; J1940; J1956; J2185; J2248; J3475; J7030; Q0163; Q9967

== ENCOUNTER 2018-08-06 16:50 | Inpatient (IN) | payer BC, MEDICARE ==
[2018-08-06] VITALS (11 sets, daily range): BP systolic 131–154; BP diastolic 35–89
[~2018-08-06] VITALS: Ht 175.3 cm; Wt 84.0 kg
[~2018-08-06 16:50] MED LIST: AMLO10TA8 PO; AMLO5TAB10 PO; APIX5TAB4 PO; ASPI-630 PO; ATOR10TA60 PO; ATOR40TA59 PO; CARV12.511 PO; DOCU100C28 PO; FERR325T14 PO; HYDR-2765 PO; HYDR-2869 PO; INSU100I13 SQ; INSU100V8 SQ; INSU200I SQ; LEVO500T59 PO; LISI-130 PO; LISI-334 PO; PANT20TA2 PO; TRAM50TA PO
[2018-08-06] MEDS ORDERED: LABETALOL 20 MG/4 ML DISP.SYRIN. IVP ONE ×2 (17:15→18:30)
[2018-08-06 17:21] LABS: CREATININE ISTAT 3.4 mg/dL (0.5-1.4); HEMOGLOBIN ISTAT 9.5 g/dL (14-18); ION CA ISTAT 1.14 mmol/L (1.13-1.32); POTASSIUM ISTAT 4.3 mmol/L (3.5-5.0)
--- NOTE | 2018-08-06 17:21 | PHYS DOC ---
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 According to the patient's mother, she received a call from some friends, that the patient had gone to their house and apparently was not acting right, questionably had a left facial droop. The patient himself states he feels fine, although he does have some mild questionable droopiness of the left side of his face. He denies any pain, including any headache, extremity numbness, weakness, or any recent injury. He does take Eliquis for past history of atrial fibrillation and reports compliance. He denies any chest pain and shortness of breath. He reports compliance with all of his medications. There are no alleviating or exacerbating factors to his symptoms otherwise. Unfortunately, the patient would not be a candidate for TPA, even if his diagnosis were confirmed to be a stroke, due to use of Eliquis. Bedside glucose is in the 230 range. Review of Systems Review of Systems Constitutional: Denies fever or chills [] Eyes: Denies change in visual acuity, redness, or eye pain [] HENT: Denies nasal congestion or sore throat [] Respiratory: Denies cough or shortness of breath [] Cardiovascular: The patient denies any shortness of breath, chest pain, palpitations, or orthopnea [] GI: Denies abdominal pain, nausea, vomiting, bloody stools or diarrhea [] : Denies dysuria or hematuria [] Musculoskeletal: Denies back pain or joint pain [] Integument: Denies rash or skin lesions [] Neurologic: Denies headache, focal weakness or sensory changes [] Endocrine: Denies polyuria or polydipsia [] All other systems were reviewed and found to be within normal limits, except as documented in this note. Current Medications Current Medications Current Medications Medications (Trade) Dose Ordered Sig/Melania Start Time Stop Time Status Last Admin Dose Admin Labetalol HCl (Normodyne Iv Push) 10 mg 1X ONCE 08/06/18 17:15 08/06/18 17:16 DC 08/06/18 17:27 10 MG Nicardipine HCl 50 mg/Sodium Chloride 250 ml @ 25 mls/hr CONT PRN 08/06/18 17:30 08/06/18 17:43 25 MLS/HR Prothrombin Complex Concent (Human) 4000 unit/ Miscellaneous 160 ml @ 8.4 mls/min 1X ONCE 08/06/18 18:30 08/06/18 18:49 Allergies Allergies Allergies Coded Allergies Type Severity Reaction Last Updated Verified piperacillin Allergy Intermediate 10/07/17 Yes tazobactam Allergy Intermediate 07/15/17 Yes vancomycin Allergy Intermediate 01/26/17 Yes Physical Exam Physical Exam PHYSICAL EXAM: CONSTITUTIONAL: Well developed, well nourished HEAD: normocephalic, atraumatic EENT: PERRL, EOMI. Conjunctivae normal color, sclerae non-icteric; moist mucous membranes. NECK: Supple, non-tender; no meningismus. LUNGS: Lungs CTA, breathing even and unlabored. Normal air movement. HEART: Regular rate and rhythm, no murmur. There is an apparent S3 gallop. CHEST: No deformity; non-tender ABDOMEN: The abdomen is soft, and non-tender, no masses or bruits. EXTREM: Normal ROM; no deformity, no calf tenderness. Normal pulses palpable in all extremities. There is a transmetatarsal amputation on the left, with edema to the left leg and surgical scars below the knee, all of which are chronic, per the patient. There is no pedal edema on the right.. SKIN: No rash; no diaphoresis NEURO: Alert; mildly slurred speech and mildly impaired cognition; there is a questionable left-sided facial droop, without complete paresis, otherwise CN's grossly intact; mild left lower extremities bilaterally, otherwise strength grossly intact without focal deficit. Sensation is grossly intact. Finger-nose- finger testing and [id number] testing are normal. Nares stroke scale score is 4. BACK: No CVA TTP. Current Patient Data Vital Signs Vital Signs Date Time Temp Pulse Resp B/P (MAP) Pulse Ox O2 Delivery O2 Flow Rate FiO2 08/06/18 17:54 82 22 98 08/06/18 17:27 198/101 08/06/18 16:55 99.1 Room Air 99.1 Lab Values Laboratory Tests Test 08/06/18 17:00 08/06/18 17:15 White Blood Count 5.5 x10^3/uL (4.0-11.0) Red Blood Count 3.17 x10^6/uL (4.30-5.70) L Hemoglobin 9.3 g/dL (13.0-17.5) L Hematocrit 28.4 % (39.0-53.0) L Mean Corpuscular Volume 90 fL (79-100) Mean Corpuscular Hemoglobin 29 pg (25-35) Mean Corpuscular Hemoglobin Concent 33 g/dL (31-37) Red Cell Distribution Width 15.7 % (11.5-14.5) H Platelet Count 220 x10^3/uL (140-400) Neutrophils (%) (Auto) 72 % (31-73) Lymphocytes (%) (Auto) 17 % (24-48) L Monocytes (%) (Auto) 7 % (0-9) Eosinophils (%) (Auto) 2 % (0-3) Basophils (%) (Auto) 1 % (0-3) Neutrophils # (Auto) 4.0 x10^3uL (1.8-7.7) Lymphocytes # (Auto) 1.0 x10^3/uL (1.0-4.8) Monocytes # (Auto) 0.4 x10^3/uL (0.0-1.1) Eosinophils # (Auto) 0.1 x10^3/uL (0.0-0.7) Basophils # (Auto) 0.1 x10^3/uL (0.0-0.2) Prothrombin Time 15.2 SEC (11.7-14.0) H Prothrombin Time INR 1.2 (0.8-1.1) H PTT 44 SEC (24-38) H Urine Collection Type Unknown Urine Color Yellow Urine Clarity Clear Urine pH 6.5 Urine Specific [place] 1.015 Urine Protein >=300 mg/dL (NEG-TRACE) Urine Glucose (UA) 250 mg/dL (NEG) Urine Ketones (Stick) Negative mg/dL (NEG) Urine Blood Small (NEG) Urine Nitrite Negative (NEG) Urine Bilirubin Negative (NEG) Urine Urobilinogen Dipstick 0.2 mg/dL (0.2 mg/dL) Urine Leukocyte Esterase Negative (NEG) Urine RBC 11-20 /HPF (0-2) Urine WBC Occ /HPF (0-4) Urine Squamous Epithelial Cells Occ /LPF Urine Bacteria 0 /HPF (0-FEW) Sodium Level 139 mmol/L (136-145) Potassium Level 4.3 mmol/L (3.5-5.1) Chloride Level 104 mmol/L (98-107) Carbon Dioxide Level 25 mmol/L (21-32) Anion Gap 10 (6-14) 18 mmol/L (6-14) H Blood Urea Nitrogen 44 mg/dL (8-26) H Creatinine 3.5 mg/dL (0.7-1.3) H Estimated GFR (Cockcroft-Gault) 22.4 BUN/Creatinine Ratio 13 (6-20) Glucose Level 235 mg/dL (70-99) H 231 mg/dL (70-99) H Lactic Acid Level 0.9 mmol/L (0.4-2.0) Calcium Level 8.6 mg/dL (8.5-10.1) Magnesium Level Pending Total Bilirubin Pending Aspartate Amino Transferase (AST) Pending Alanine Aminotransferase (ALT) Pending Alkaline Phosphatase Pending Total Protein Pending Albumin Pending Albumin/Globulin Ratio Pending Urine Opiates Screen Neg (NEG) Urine Methadone Screen Neg (NEG) Urine Barbiturates Neg (NEG) Urine Phencyclidine Screen Neg (NEG) Urine Amphetamine/Methamphetamine Neg (NEG) Urine Benzodiazepines Screen Neg (NEG) Urine Cocaine Screen Neg (NEG) Urine Cannabinoids Screen Neg (NEG) Urine Ethyl Alcohol Neg (NEG) POC Hemoglobin 9.5 g/dL (14-18) L POC Hematocrit 28 % (37-52) L POC Sodium 140 mmol/L (135-145) POC Potassium 4.3 mmol/L (3.5-5.0) POC Chloride 107 mmol/L (98-110) POC Total CO2 20 mmol/L (23-32) L POC Blood Urea Nitrogen 40 mg/dL (8-26) H POC Creatinine 3.4 mg/dL (0.5-1.4) H POC Ionized Calcium ([place]) 1.14 mmol/L (1.13-1.32) Laboratory Tests 08/06/18 17:00 Laboratory Tests 08/06/18 17:00 08/06/18 17:15 EKG EKG [Normal sinus rhythm at a rate of 85 beats for minute, left axis deviation, normal intervals, left ventricular hypertrophy with repolarization abnormality in lateral T wave inversion without acute ischemic ST/T changes.] Radiology/Procedures Radiology/Procedures [ER Physician preliminary chest x-ray interpretation: Cardiomegaly with mild central congestion without acute infiltrate.] ER physician preliminary head CT interpretation: Right anterior periventricular bleed, likely hypertensive. Course & Med Decision Making Course & Med Decision Making Pertinent Labs and Imaging studies reviewed. (See chart for details) [5:30 PM: I reviewed the patient's CT scan he does appear to have a periventricular hemorrhage on the right side, I have paged neurosurgery and requested [facility] from pharmacy, and will admit patient to ICU. Hospitalist paged. Pt confirms his last Eliquis dose was this morning. ] CRITICAL CARE TIME: [45] Minutes, excluding any procedures and care of other patients. Dragon Disclaimer Dragon Disclaimer This electronic medical record was generated, in whole or in part, using a voice recognition dictation system. Departure Departure Impression: Primary Impression: Intracranial hemorrhage Additional Impression: Oczov-ja-eardume renal failure Disposition: ADMITTED INPATIENT Admitting Physician: Keysha Baxter Condition: GUARDED Referrals: DOLORES SMITH JR, MD (PCP) Problem Qualifiers STIVEN DAWSON MD Aug 06, 2018 17:21
[2018-08-06 17:25] LABS: BILIRUBIN,URINE NEGATIVE (NEG); CLARITY,URINE CLEAR; COLOR,URINE YELLOW; NITRITE,URINE NEGATIVE (NEG); PH,URINE 6.5; PROTEIN,URINE >=300 mg/dL (NEG-TRACE); UROBILINOGEN,URINE 0.2 mg/dL (0.2 mg/dL)
[2018-08-06 17:30] LABS: BASO # 0.1 x10^3/uL (0.0-0.2); BASO % 1 % (0-3); EOS # 0.1 x10^3/uL (0.0-0.7); EOS % 2 % (0-3); HEMATOCRIT 28.4 % (39.0-53.0); HEMOGLOBIN 9.3 g/dL (13.0-17.5); LYMPH % 17 % (24-48); MEAN CORPUSCULAR HEMOGLOBIN 29 pg (25-35); MEAN CORPUSCULAR HGB CONC 33 g/dL (31-37); MEAN CORPUSCULAR VOLUME 90 fL (79-100); MONO # 0.4 x10^3/uL (0.0-1.1); MONO % 7 % (0-9); NEUT % 72 % (31-73); PLATELET COUNT 220 x10^3/uL (140-400); RED BLOOD COUNT 3.17 x10^6/uL (4.30-5.70); RED CELL DISTRIBUTION WIDTH 15.7 % (11.5-14.5); WHITE BLOOD COUNT 5.5 x10^3/uL (4.0-11.0)
[2018-08-06 17:32] LABS: AMPHETAMINE/METHAMPHETAMINE NEG (NEG); BARBITURATES NEG (NEG); BENZODIAZEPINES NEG (NEG); CANNABINOIDS NEG (NEG); COCAINE NEG (NEG); METHADONE NEG (NEG); OPIATES NEG (NEG); PHENCYCLIDINE NEG (NEG)
[2018-08-06 17:35] LABS: PROTHROMBIN TIME PATIENT 15.2 SEC (11.7-14.0)
[2018-08-06 17:36] LABS: SQUAMOUS EPITHELIAL CELL,UR OCC /LPF
[2018-08-06 17:37] LABS: BACTERIA,URINE 0 /HPF (0-FEW); WBC,URINE OCC /HPF (0-4)
[2018-08-06 17:47] LABS: CALCIUM 8.6 mg/dL (8.5-10.1); CREATININE 3.5 mg/dL (0.7-1.3); GFR 22.4; POTASSIUM 4.3 mmol/L (3.5-5.1)
[2018-08-06 17:58] LABS: ALBUMIN 2.7 g/dL (3.4-5.0); ALBUMIN/GLOBULIN RATIO 0.5 (1.0-1.7); MAGNESIUM 1.9 mg/dL (1.8-2.4); TOTAL BILIRUBIN 0.7 mg/dL (0.2-1.0); TOTAL PROTEIN 8.4 g/dL (6.4-8.2)
--- NOTE | 2018-08-06 18:19 | RAD ---
CT HEAD WO CONTRAST Clinical indications: Altered mental status, COMPARISON: None available. Technique: Noncontrast axial cross sectional scanning of the head was performed. PQRS compliance Statement One or more of the following individualized dose reduction techniques were utilized for this study: 1. Automated exposure control 2. Adjustment of the mA and/or kV according to patient size 3. Use of iterative reconstruction technique Findings: There is acute hyperdense intracranial hemorrhage involving the caudate nucleus and centrum semiovale on the right side. This measures 3.4 cm in greatest dimension. There is midline shift from right to left of 6.5 mm. There is compression of the adjacent right lateral ventricle. No skull fracture or pneumocephalus is seen. No opacification of the mastoid sinuses or the paranasal sinuses is seen. The maxillary sinuses are not completely seen in this study. Impression: Acute hyperdense intracranial hemorrhage involving the caudate nucleus and centrum semiovale on the right side. This may represent a hypertensive bleed or hemorrhagic infarct given it's location. Note-this critical result was called to Dr. Luis Suresh in the emergency room at 6:15 PM on August 06, 2018. Electronically signed by: Cory Thornton MD (08/06/2018 6:16 PM) [facility]
[2018-08-06] MEDS ORDERED: TOTAL VOLUME IV ONE ×2 (18:30→20:30)
[2018-08-06] MEDS ORDERED: [UNRECOGNIZED DRUG - OTHER] IV ONE ×2 (18:30→20:30)
[2018-08-06] MEDS ORDERED: HUM PROTHROMBIN CPLX IV ONE ×2 (18:30→20:30)
[2018-08-06] MEDS ORDERED: LISINOPRIL 20 MG TABLET PO SCH (21:00)
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
[2018-08-06] MEDS: CARVEDILOL 12.5 MG TABLET. PO SCH ×2 (22:00→22:06)
[2018-08-06] MEDS: ATORVASTATIN CALCIUM 40 MG TABLET. PO SCH ×2 (22:00→22:06)
[2018-08-06] MEDS: INSULIN GLARGINE 300 UNITS/3 ML INSULN.PEN. SQ SCH (22:03)
[2018-08-06] MEDS: HYDROcodone/APAP 7.5/325MG 1 TAB TABLET PO PRN (23:36)
[2018-08-07] VITALS (21 sets, daily range): BP systolic 107–174; BP diastolic 54–86
--- NOTE | 2018-08-07 00:10 | RAD ---
Indication:AMS TECHNIQUE:Portable AP chest X-ray COMPARISON:10/02 CT FINDINGS: Heart is mildly enlarged in size. Prominent bilateral bronchovascular markings are seen. No focal consolidation. No pneumothorax or pleural effusion. Visualized bony thorax is within normal limits. IMPRESSION: Findings of peribronchial edema or bronchitis. Electronically signed by: Javi Hartman DO (08/07/2018 12:06 AM) [facility]
--- NOTE | 2018-08-07 00:46 | NUR ---
2015 patient admitted from ER with dx of subdural hematoma. per ER patient mother noted facial dropping on right side of face. Some slurred speech. upon arrival to floor noted sl facial droppin, no slurred speech. A&ox4. c/o sl AL. Dr. Baxter and Tali at . Plan to watch patient overnight.
--- NOTE | 2018-08-07 02:31 | EKG ---
[facility] [address] [place] [id number] Test Date: 2018-08-06 Test Time: 17:04:22 Pat Name: STIVEN ODONNELL Department: Room: 106 1 Gender: M Student Life Coordinator: : 1965 Requested By: STIVEN DAWSON Order Number: [id number] Reading MD: Neville Asher MD Measurements Intervals Rand Rate: 85 P: 7 TN: 130 QRS: -3 QRSD: 96 T: 133 QT: 360 QTc: 433 Interpretive Statements SINUS RHYTHM LEFT ATRIAL ABNORMALITY LEFTWARD AXIS LVH WITH REPOLARIZATION ABNORMALITY Electronically Signed On 08-14-2018 9:49:08 CDT by Neville Asher MD
[2018-08-07] MEDS: HYDROcodone/APAP 7.5/325MG 1 TAB TABLET PO PRN ×3 (05:56→16:13)
[2018-08-07] MEDS ORDERED: DEXTROSE 50% 25 GM / 50ML DISP.SYRIN. IV PRN (06:30)
[2018-08-07 07:33] LABS: BASO % 1 % (0-3); EOS # 0.2 x10^3/uL (0.0-0.7); EOS % 3 % (0-3); HEMATOCRIT 24.9 % (39.0-53.0); HEMOGLOBIN 8.2 g/dL (13.0-17.5); LYMPH # 1.4 x10^3/uL (1.0-4.8); LYMPH % 28 % (24-48); MEAN CORPUSCULAR HEMOGLOBIN 30 pg (25-35); MEAN CORPUSCULAR HGB CONC 33 g/dL (31-37); MEAN CORPUSCULAR VOLUME 90 fL (79-100); MONO # 0.5 x10^3/uL (0.0-1.1); MONO % 10 % (0-9); NEUT # 2.8 x10^3uL (1.8-7.7); NEUT % 58 % (31-73); PLATELET COUNT 199 x10^3/uL (140-400); RED BLOOD COUNT 2.77 x10^6/uL (4.30-5.70); WHITE BLOOD COUNT 4.9 x10^3/uL (4.0-11.0)
[2018-08-07 07:44] LABS: CALCIUM 8.4 mg/dL (8.5-10.1); CREATININE 3.5 mg/dL (0.7-1.3); GFR 22.4
[2018-08-07] MEDS: INSULIN LISPRO 300 UNITS/3 ML INSULN.PEN. SQ SCH ×6 (08:00→17:16)
[2018-08-07] MEDS: PANTOPRAZOLE 40 MG TABLET.DR. PO SCH (09:00)
[2018-08-07] MEDS: amLODIPine BESYLATE 10 MG TABLET PO SCH (09:01)
--- NOTE | 2018-08-07 10:29 | PDOC ---
PROGRESS NOTES History of Present Illness History of Present Illness Assessment/Plan encephalopathy, acute, from acute mill oiler bleed There is associated effacement of the right lateral ventricle anteriorly with a slight right to left shift of the midline structures. 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 Intracranial hemorrhage, on Eliquis, reversal given cont ICU Acute right caudate nuclear and central semiovale hemorrhage. Metabolic encephalopathy. hypertensive urgency, BP 198/101 mmHg. Left side VII palsy. Left side weakness.. Hx of AFib on Eliquis. 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 acute renal failure with proteinuria, consult renal 35 min cc time Vitals Vitals Vital Signs Date Time Temp Pulse Resp B/P (MAP) Pulse Ox O2 Delivery O2 Flow Rate FiO2 08/07/18 09:01 73 157/82 08/07/18 09:00 14 98 Room Air 08/07/18 07:00 98.5 98.5 08/07/18 06:56 98.0 Physical Exam General: Alert, Oriented X3, Cooperative, No acute distress Heart: Regular rate, Normal S1, Other (irrr) Lungs: Clear Abdomen: Normal bowel sounds, Soft, No tenderness Extremities: No clubbing, No cyanosis, Normal pulses Skin: No rashes, No significant lesion Labs LABS CT of the head without contrast, 08/07/2018: HISTORY: Follow-up intracranial hemorrhage Comparison is made to a study from 08/06/2018. There is an acute intracranial hemorrhage presents in the anterior aspect of the right basal ganglia extending superiorly into the centrum semiovale. It measures just over 3 cm in greatest diameter on the axial scans. It appears unchanged in size and configuration since yesterday's study. There is associated effacement of the right lateral ventricle anteriorly with a slight right to left shift of the midline structures. 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 No abnormal extra-axial fluid collection or mass is seen. There is calcific plaquing of the distal internal carotid arteries. IMPRESSION: Stable acute right basal ganglia hemorrhage. PQRS Compliance Statement: One or more of the following individualized dose reduction techniques were utilized for this examination: 1. Automated exposure control Laboratory Tests Test 08/06/18 17:00 08/06/18 17:15 08/06/18 20:20 08/07/18 07:15 White Blood Count 5.5 x10^3/uL (4.0-11.0) 4.9 x10^3/uL (4.0-11.0) Red Blood Count 3.17 x10^6/uL (4.30-5.70) 2.77 x10^6/uL (4.30-5.70) Hemoglobin 9.3 g/dL (13.0-17.5) 8.2 g/dL (13.0-17.5) Hematocrit 28.4 % (39.0-53.0) 24.9 % (39.0-53.0) Mean Corpuscular Volume 90 fL (79-100) 90 fL (79-100) Mean Corpuscular Hemoglobin 29 pg (25-35) 30 pg (25-35) Mean Corpuscular Hemoglobin Concent 33 g/dL (31-37) 33 g/dL (31-37) Red Cell Distribution Width 15.7 % (11.5-14.5) 16.0 % (11.5-14.5) Platelet Count 220 x10^3/uL (140-400) 199 x10^3/uL (140-400) Neutrophils (%) (Auto) 72 % (31-73) 58 % (31-73) Lymphocytes (%) (Auto) 17 % (24-48) 28 % (24-48) Monocytes (%) (Auto) 7 % (0-9) 10 % (0-9) Eosinophils (%) (Auto) 2 % (0-3) 3 % (0-3) Basophils (%) (Auto) 1 % (0-3) 1 % (0-3) Neutrophils # (Auto) 4.0 x10^3uL (1.8-7.7) 2.8 x10^3uL (1.8-7.7) Lymphocytes # (Auto) 1.0 x10^3/uL (1.0-4.8) 1.4 x10^3/uL (1.0-4.8) Monocytes # (Auto) 0.4 x10^3/uL (0.0-1.1) 0.5 x10^3/uL (0.0-1.1) Eosinophils # (Auto) 0.1 x10^3/uL (0.0-0.7) 0.2 x10^3/uL (0.0-0.7) Basophils # (Auto) 0.1 x10^3/uL (0.0-0.2) 0.0 x10^3/uL (0.0-0.2) Prothrombin Time 15.2 SEC (11.7-14.0) Prothromb Time International Ratio 1.2 (0.8-1.1) Activated Partial Thromboplast Time 44 SEC (24-38) Urine Collection Type Unknown Urine Color Yellow Urine Clarity Clear Urine pH 6.5 Urine Specific [place] 1.015 Urine Protein >=300 mg/dL (NEG-TRACE) Urine Glucose (UA) 250 mg/dL (NEG) Urine Ketones (Stick) Negative mg/dL (NEG) Urine Blood Small (NEG) Urine Nitrite Negative (NEG) Urine Bilirubin Negative (NEG) Urine Urobilinogen Dipstick 0.2 mg/dL (0.2 mg/dL) Urine Leukocyte Esterase Negative (NEG) Urine RBC 11-20 /HPF (0-2) Urine WBC Occ /HPF (0-4) Urine Squamous Epithelial Cells Occ /LPF Urine Bacteria 0 /HPF (0-FEW) Sodium Level 139 mmol/L (136-145) 142 mmol/L (136-145) Potassium Level 4.3 mmol/L (3.5-5.1) 4.0 mmol/L (3.5-5.1) Chloride Level 104 mmol/L (98-107) 109 mmol/L (98-107) Carbon Dioxide Level 25 mmol/L (21-32) 23 mmol/L (21-32) Anion Gap 10 (6-14) 18 mmol/L (6-14) 10 (6-14) Blood Urea Nitrogen 44 mg/dL (8-26) 46 mg/dL (8-26) Creatinine 3.5 mg/dL (0.7-1.3) 3.5 mg/dL (0.7-1.3) Estimated GFR (Cockcroft-Gault) 22.4 22.4 BUN/Creatinine Ratio 13 (6-20) Glucose Level 235 mg/dL (70-99) 231 mg/dL (70-99) 88 mg/dL (70-99) Glucose (Fingerstick) 231 mg/dL (70-99) 208 mg/dL (70-99) Lactic Acid Level 0.9 mmol/L (0.4-2.0) Calcium Level 8.6 mg/dL (8.5-10.1) 8.4 mg/dL (8.5-10.1) Magnesium Level 1.9 mg/dL (1.8-2.4) Total Bilirubin 0.7 mg/dL (0.2-1.0) Aspartate Amino Transf (AST/SGOT) 15 U/L (15-37) Alanine Aminotransferase (ALT/SGPT) 22 U/L (16-63) Alkaline Phosphatase 180 U/L (46-116) Creatine Kinase 278 U/L (39-308) Creatine Kinase MB (Mass) 1.8 ng/mL (0.0-3.6) Creatine Kinase MB Relative Index 0.6 % (0-4) Troponin I Quantitative 0.477 ng/mL (0.000-0.055) EK-Ane-T-Type Natriuretic Peptide 67713 pg/mL (0-124) Total Protein 8.4 g/dL (6.4-8.2) Albumin 2.7 g/dL (3.4-5.0) Albumin/Globulin Ratio 0.5 (1.0-1.7) Thyroid Stimulating Hormone (TSH) 0.427 uIU/mL (0.358-3.74) Urine Opiates Screen Neg (NEG) Urine Methadone Screen Neg (NEG) Urine Barbiturates Neg (NEG) Urine Phencyclidine Screen Neg (NEG) Urine Amphetamine/Methamphetamine Neg (NEG) Urine Benzodiazepines Screen Neg (NEG) Urine Cocaine Screen Neg (NEG) Urine Cannabinoids Screen Neg (NEG) Urine Ethyl Alcohol Neg (NEG) Bedside Hemoglobin 9.5 g/dL (14-18) Bedside Hematocrit 28 % (37-52) Bedside Sodium 140 mmol/L (135-145) Bedside Potassium 4.3 mmol/L (3.5-5.0) Bedside Chloride 107 mmol/L (98-110) Bedside Total CO2 20 mmol/L (23-32) Bedside Blood Urea Nitrogen 40 mg/dL (8-26) Bedside Creatinine 3.4 mg/dL (0.5-1.4) Bedside Ionized Calcium ([place]) 1.14 mmol/L (1.13-1.32) Test 3/14/19 08:36 Glucose (Fingerstick) 72 mg/dL (70-99) Assessment and Plan Assessmemt and Plan Problems Medical Problems: (1) [id number] renal failure Status: Acute (2) Intracranial hemorrhage Status: Acute Comment Review of Relevant I have reviewed the following items bibi (where applicable) has been applied. Labs Laboratory Tests Test 08/06/18 17:00 08/06/18 17:15 08/06/18 20:20 08/07/18 07:15 White Blood Count 5.5 x10^3/uL (4.0-11.0) 4.9 x10^3/uL (4.0-11.0) Red Blood Count 3.17 x10^6/uL (4.30-5.70) 2.77 x10^6/uL (4.30-5.70) Hemoglobin 9.3 g/dL (13.0-17.5) 8.2 g/dL (13.0-17.5) Hematocrit 28.4 % (39.0-53.0) 24.9 % (39.0-53.0) Mean Corpuscular Volume 90 fL (79-100) 90 fL (79-100) Mean Corpuscular Hemoglobin 29 pg (25-35) 30 pg (25-35) Mean Corpuscular Hemoglobin Concent 33 g/dL (31-37) 33 g/dL (31-37) Red Cell Distribution Width 15.7 % (11.5-14.5) 16.0 % (11.5-14.5) Platelet Count 220 x10^3/uL (140-400) 199 x10^3/uL (140-400) Neutrophils (%) (Auto) 72 % (31-73) 58 % (31-73) Lymphocytes (%) (Auto) 17 % (24-48) 28 % (24-48) Monocytes (%) (Auto) 7 % (0-9) 10 % (0-9) Eosinophils (%) (Auto) 2 % (0-3) 3 % (0-3) Basophils (%) (Auto) 1 % (0-3) 1 % (0-3) Neutrophils # (Auto) 4.0 x10^3uL (1.8-7.7) 2.8 x10^3uL (1.8-7.7) Lymphocytes # (Auto) 1.0 x10^3/uL (1.0-4.8) 1.4 x10^3/uL (1.0-4.8) Monocytes # (Auto) 0.4 x10^3/uL (0.0-1.1) 0.5 x10^3/uL (0.0-1.1) Eosinophils # (Auto) 0.1 x10^3/uL (0.0-0.7) 0.2 x10^3/uL (0.0-0.7) Basophils # (Auto) 0.1 x10^3/uL (0.0-0.2) 0.0 x10^3/uL (0.0-0.2) Prothrombin Time 15.2 SEC (11.7-14.0) Prothromb Time International Ratio 1.2 (0.8-1.1) Activated Partial Thromboplast Time 44 SEC (24-38) Urine Collection Type Unknown Urine Color Yellow Urine Clarity Clear Urine pH 6.5 Urine Specific [place] 1.015 Urine Protein >=300 mg/dL (NEG-TRACE) Urine Glucose (UA) 250 mg/dL (NEG) Urine Ketones (Stick) Negative mg/dL (NEG) Urine Blood Small (NEG) Urine Nitrite Negative (NEG) Urine Bilirubin Negative (NEG) Urine Urobilinogen Dipstick 0.2 mg/dL (0.2 mg/dL) Urine Leukocyte Esterase Negative (NEG) Urine RBC 11-20 /HPF (0-2) Urine WBC Occ /HPF (0-4) Urine Squamous Epithelial Cells Occ /LPF Urine Bacteria 0 /HPF (0-FEW) Sodium Level 139 mmol/L (136-145) 142 mmol/L (136-145) Potassium Level 4.3 mmol/L (3.5-5.1) 4.0 mmol/L (3.5-5.1) Chloride Level 104 mmol/L (98-107) 109 mmol/L (98-107) Carbon Dioxide Level 25 mmol/L (21-32) 23 mmol/L (21-32) Anion Gap 10 (6-14) 18 mmol/L (6-14) 10 (6-14) Blood Urea Nitrogen 44 mg/dL (8-26) 46 mg/dL (8-26) Creatinine 3.5 mg/dL (0.7-1.3) 3.5 mg/dL (0.7-1.3) Estimated GFR (Cockcroft-Gault) 22.4 22.4 BUN/Creatinine Ratio 13 (6-20) Glucose Level 235 mg/dL (70-99) 231 mg/dL (70-99) 88 mg/dL (70-99) Glucose (Fingerstick) 231 mg/dL (70-99) 208 mg/dL (70-99) Lactic Acid Level 0.9 mmol/L (0.4-2.0) Calcium Level 8.6 mg/dL (8.5-10.1) 8.4 mg/dL (8.5-10.1) Magnesium Level 1.9 mg/dL (1.8-2.4) Total Bilirubin 0.7 mg/dL (0.2-1.0) Aspartate Amino Transf (AST/SGOT) 15 U/L (15-37) Alanine Aminotransferase (ALT/SGPT) 22 U/L (16-63) Alkaline Phosphatase 180 U/L (46-116) Creatine Kinase 278 U/L (39-308) Creatine Kinase MB (Mass) 1.8 ng/mL (0.0-3.6) Creatine Kinase MB Relative Index 0.6 % (0-4) Troponin I Quantitative 0.477 ng/mL (0.000-0.055) UC-[place]-H-Type Natriuretic Peptide 91159 pg/mL (0-124) Total Protein 8.4 g/dL (6.4-8.2) Albumin 2.7 g/dL (3.4-5.0) Albumin/Globulin Ratio 0.5 (1.0-1.7) Thyroid Stimulating Hormone (TSH) 0.427 uIU/mL (0.358-3.74) Urine Opiates Screen Neg (NEG) Urine Methadone Screen Neg (NEG) Urine Barbiturates Neg (NEG) Urine Phencyclidine Screen Neg (NEG) Urine Amphetamine/Methamphetamine Neg (NEG) Urine Benzodiazepines Screen Neg (NEG) Urine Cocaine Screen Neg (NEG) Urine Cannabinoids Screen Neg (NEG) Urine Ethyl Alcohol Neg (NEG) Bedside Hemoglobin 9.5 g/dL (14-18) Bedside Hematocrit 28 % (37-52) Bedside Sodium 140 mmol/L (135-145) Bedside Potassium 4.3 mmol/L (3.5-5.0) Bedside Chloride 107 mmol/L (98-110) Bedside Total CO2 20 mmol/L (23-32) Bedside Blood Urea Nitrogen 40 mg/dL (8-26) Bedside Creatinine 3.4 mg/dL (0.5-1.4) Bedside Ionized Calcium ([place]) 1.14 mmol/L (1.13-1.32) Test 08/07/18 08:36 Glucose (Fingerstick) 72 mg/dL (70-99) Laboratory Tests Test 08/06/18 17:00 08/06/18 17:15 08/06/18 20:20 08/07/18 07:15 White Blood Count 5.5 x10^3/uL (4.0-11.0) 4.9 x10^3/uL (4.0-11.0) Red Blood Count 3.17 x10^6/uL (4.30-5.70) 2.77 x10^6/uL (4.30-5.70) Hemoglobin 9.3 g/dL (13.0-17.5) 8.2 g/dL (13.0-17.5) Hematocrit 28.4 % (39.0-53.0) 24.9 % (39.0-53.0) Mean Corpuscular Volume 90 fL (79-100) 90 fL (79-100) Mean Corpuscular Hemoglobin 29 pg (25-35) 30 pg (25-35) Mean Corpuscular Hemoglobin Concent 33 g/dL (31-37) 33 g/dL (31-37) Red Cell Distribution Width 15.7 % (11.5-14.5) 16.0 % (11.5-14.5) Platelet Count 220 x10^3/uL (140-400) 199 x10^3/uL (140-400) Neutrophils (%) (Auto) 72 % (31-73) 58 % (31-73) Lymphocytes (%) (Auto) 17 % (24-48) 28 % (24-48) Monocytes (%) (Auto) 7 % (0-9) 10 % (0-9) Eosinophils (%) (Auto) 2 % (0-3) 3 % (0-3) Basophils (%) (Auto) 1 % (0-3) 1 % (0-3) Neutrophils # (Auto) 4.0 x10^3uL (1.8-7.7) 2.8 x10^3uL (1.8-7.7) Lymphocytes # (Auto) 1.0 x10^3/uL (1.0-4.8) 1.4 x10^3/uL (1.0-4.8) Monocytes # (Auto) 0.4 x10^3/uL (0.0-1.1) 0.5 x10^3/uL (0.0-1.1) Eosinophils # (Auto) 0.1 x10^3/uL (0.0-0.7) 0.2 x10^3/uL (0.0-0.7) Basophils # (Auto) 0.1 x10^3/uL (0.0-0.2) 0.0 x10^3/uL (0.0-0.2) Prothrombin Time 15.2 SEC (11.7-14.0) Prothromb Time International Ratio 1.2 (0.8-1.1) Activated Partial Thromboplast Time 44 SEC (24-38) Urine Collection Type Unknown Urine Color Yellow Urine Clarity Clear Urine pH 6.5 Urine Specific [place] 1.015 Urine Protein >=300 mg/dL (NEG-TRACE) Urine Glucose (UA) 250 mg/dL (NEG) Urine Ketones (Stick) Negative mg/dL (NEG) Urine Blood Small (NEG) Urine Nitrite Negative (NEG) Urine Bilirubin Negative (NEG) Urine Urobilinogen Dipstick 0.2 mg/dL (0.2 mg/dL) Urine Leukocyte Esterase Negative (NEG) Urine RBC 11-20 /HPF (0-2) Urine WBC Occ /HPF (0-4) Urine Squamous Epithelial Cells Occ /LPF Urine Bacteria 0 /HPF (0-FEW) Sodium Level 139 mmol/L (136-145) 142 mmol/L (136-145) Potassium Level 4.3 mmol/L (3.5-5.1) 4.0 mmol/L (3.5-5.1) Chloride Level 104 mmol/L (98-107) 109 mmol/L (98-107) Carbon Dioxide Level 25 mmol/L (21-32) 23 mmol/L (21-32) Anion Gap 10 (6-14) 18 mmol/L (6-14) 10 (6-14) Blood Urea Nitrogen 44 mg/dL (8-26) 46 mg/dL (8-26) Creatinine 3.5 mg/dL (0.7-1.3) 3.5 mg/dL (0.7-1.3) Estimated GFR (Cockcroft-Gault) 22.4 22.4 BUN/Creatinine Ratio 13 (6-20) Glucose Level 235 mg/dL (70-99) 231 mg/dL (70-99) 88 mg/dL (70-99) Glucose (Fingerstick) 231 mg/dL (70-99) 208 mg/dL (70-99) Lactic Acid Level 0.9 mmol/L (0.4-2.0) Calcium Level 8.6 mg/dL (8.5-10.1) 8.4 mg/dL (8.5-10.1) Magnesium Level 1.9 mg/dL (1.8-2.4) Total Bilirubin 0.7 mg/dL (0.2-1.0) Aspartate Amino Transf (AST/SGOT) 15 U/L (15-37) Alanine Aminotransferase (ALT/SGPT) 22 U/L (16-63) Alkaline Phosphatase 180 U/L (46-116) Creatine Kinase 278 U/L (39-308) Creatine Kinase MB (Mass) 1.8 ng/mL (0.0-3.6) Creatine Kinase MB Relative Index 0.6 % (0-4) Troponin I Quantitative 0.477 ng/mL (0.000-0.055) RO-Plp-S-Type Natriuretic Peptide 45915 pg/mL (0-124) Total Protein 8.4 g/dL (6.4-8.2) Albumin 2.7 g/dL (3.4-5.0) Albumin/Globulin Ratio 0.5 (1.0-1.7) Thyroid Stimulating Hormone (TSH) 0.427 uIU/mL (0.358-3.74) Urine Opiates Screen Neg (NEG) Urine Methadone Screen Neg (NEG) Urine Barbiturates Neg (NEG) Urine Phencyclidine Screen Neg (NEG) Urine Amphetamine/Methamphetamine Neg (NEG) Urine Benzodiazepines Screen Neg (NEG) Urine Cocaine Screen Neg (NEG) Urine Cannabinoids Screen Neg (NEG) Urine Ethyl Alcohol Neg (NEG) Bedside Hemoglobin 9.5 g/dL (14-18) Bedside Hematocrit 28 % (37-52) Bedside Sodium 140 mmol/L (135-145) Bedside Potassium 4.3 mmol/L (3.5-5.0) Bedside Chloride 107 mmol/L (98-110) Bedside Total CO2 20 mmol/L (23-32) Bedside Blood Urea Nitrogen 40 mg/dL (8-26) Bedside Creatinine 3.4 mg/dL (0.5-1.4) Bedside Ionized Calcium ([place]) 1.14 mmol/L (1.13-1.32) Test 08/07/18 08:36 Glucose (Fingerstick) 72 mg/dL (70-99) Medications Current Medications Labetalol HCl (Normodyne Iv Push) 10 mg 1X ONCE IVP Last administered on 17:27; Start 08/06/18 at 17:15; Stop 08/06/18 at 17:16; Status DC Nicardipine HCl 50 mg/Sodium Chloride 250 ml @ 25 mls/hr CONT PRN IV SEE I/O RECORD Last administered on 08/06/18at 22:09; Start 08/06/18 at 17:30 Prothrombin Complex Concent (Human) 4000 unit/ Miscellaneous 160 ml @ 8.4 mls/ min 1X ONCE IV ; Start 08/06/18 at 18:30; Stop 08/06/18 at 18:49; Status Cancel Labetalol HCl (Normodyne Iv Push) 10 mg 1X ONCE IVP Last administered on 18:30; Start 08/06/18 at 18:30; Stop 08/06/18 at 18:31; Status DC Prothrombin Complex Concent (Human) 4000 unit/ Miscellaneous 160 ml @ 8.4 mls/ min 1X ONCE IV Last administered on 08/06/18 19:30; Start 08/06/18 at 20:30; Stop 08/06/18 at 20:49; Status DC Amlodipine Besylate (Norvasc) 10 mg DAILY PO Last administered on 08/07/18at 09: 01; Start 08/07/18 at 09:00 Atorvastatin Calcium (Lipitor) 40 mg HS PO Last administered on 08/06/18at 22:06 ; Start 08/06/18 at 21:00 Carvedilol (Coreg) 12.5 mg BIDWMEALS PO Last administered on 08/06/18at 22:06; Start 08/06/18 at 21:00 Docusate Sodium (Colace) 100 mg PRN DAILY PRN PO CONSTIPATION 1ST CHOICE; Start 08/06/18 at 21:00 Acetaminophen/ Hydrocodone Bitart (Lortab 7.5/325) 1 tab PRN Q4HRS PRN PO MODERATE PAIN Last administered on 08/07/18at 05:56; Start 08/06/18 at 21:00 Insulin Glargine (Lantus) 20 units HS SQ Last administered on 08/06/18at 22:03; Start 08/06/18 at 21:00 Lisinopril (Prinivil) 40 mg BID PO ; Start 08/06/18 at 21:00; Stop 08/06/18 at 21:25; Status DC Hydralazine HCl (Apresoline) 50 mg BID PO Last administered on 08/07/18at 08:59 ; Start 08/06/18 at 21:00 Insulin Human Lispro (HumaLOG) 5 units TIDWMEALS SQ Last administered on at 09:05; Start 08/07/18 at 08:00 Pantoprazole Sodium (Protonix) 40 mg DAILYAC PO Last administered on 08/07/18at 09:00; Start 08/07/18 at 07:30 Insulin Human Lispro (HumaLOG) 0-5 UNITS TIDWMEALS SQ ; Start 08/07/18 at 08:00 Dextrose (Dextrose 50%-Water Syringe) 12.5 gm PRN Q15MIN PRN IV SEE COMMENTS; Start 08/07/18 at 06:30 Active Scripts Active Ferrous Sulfate 325 Mg Tablet 1 Tab PO DAILY Levaquin (Levofloxacin) 500 Mg Tablet 500 Mg PO DAILY06 10 Days Reported Lantus Solostar (Insulin Glargine,Hum.rec.anlog) 100 Unit/1 Ml Insuln.pen 20 Unit SQ HS Hydralazine Hcl 50 Mg Tablet 50 Mg PO BID Amlodipine Besylate 10 Mg Tablet 10 Mg PO DAILY Lisinopril 40 Mg Tablet 40 Mg PO BID Atorvastatin Calcium 40 Mg Tablet 40 Mg PO HS Aspirin 81 Mg Tab.chew 81 Mg PO DAILY Humalog Kwikpen (Insulin Lispro) 200 Unit/1 Ml Insuln.pen 5 Unit SQ TIDWMEALS Tramadol Hcl 50 Mg Tablet 2 Tab PO PRN Q6HRS Protonix (Pantoprazole Sodium) 20 Mg Tablet.dr 2 Tab PO DAILY Docusate Sodium 100 Mg Capsule 1 Cap PO PRN DAILY PRN Carvedilol (Carvedilol) 12.5 Mg Tablet 1 Tab PO BID Eliquis (Apixaban) 5 Mg Tab.ds.pk 5 Mg PO BID Hydrocodone-Apap 7.5-325 (Hydrocodone Bit/Acetaminophen) 1 Each Tablet 1 Tab PO PRN Q4HRS PRN Vitals/I & O Vital Sign - Last 24 Hours 08/06/18 08/06/18 08/06/18 08/06/18 16:55 17:27 17:48 17:54 Temp 99.1 99.1 Pulse 84 81 81 82 Resp 22 22 22 B/P (MAP) 191/95 (127) 198/101 Pulse Ox 99 94 98 O2 Delivery Room Air 08/06/18 08/06/18 08/06/18 08/06/18 18:03 18:08 18:13 18:18 Pulse 82 84 88 88 Resp 22 18 16 16 Pulse Ox 98 95 96 96 08/06/18 08/06/18 08/06/18 08/06/18 18:25 18:30 18:33 18:38 Pulse 94 90 90 84 Resp 16 16 16 B/P (MAP) 163/77 Pulse Ox 96 95 96 08/06/18 08/06/18 08/06/18 08/06/18 18:51 19:06 19:21 19:34 Pulse 82 84 84 82 Resp 16 16 16 16 Pulse Ox 96 95 96 97 08/06/18 08/06/18 08/06/18 08/06/18 19:36 20:00 20:15 20:15 Temp 98.8 98.8 Pulse 84 88 80 Resp 16 20 18 B/P (MAP) 154/81 (105) 150/82 (104) Pulse Ox 98 O2 Delivery Room Air Room Air Room Air O2 Flow Rate 98.0 97.0 98.0 08/06/18 08/06/18 08/06/18 08/06/18 20:30 20:45 21:00 21:30 Pulse 90 90 88 90 Resp 16 20 20 16 B/P (MAP) 154/75 (101) 153/71 (98) 152/75 (100) 153/71 (98) O2 Delivery Room Air Room Air Room Air Room Air O2 Flow Rate 98.0 92.0 92.0 92.0 08/06/18 08/06/18 08/06/18 08/06/18 22:00 22:00 22:05 22:06 Pulse 87 89 91 91 Resp 15 B/P (MAP) 146/69 150/89 (109) 149/74 149/74 O2 Delivery Room Air O2 Flow Rate 96.0 08/06/18 08/06/18 08/06/18 08/06/18 23:00 23:36 23:45 23:58 Temp 98.5 98.5 Pulse 88 88 78 Resp 20 15 20 20 B/P (MAP) 144/67 (92) 131/35 (67) 131/67 (88) Pulse Ox 95 O2 Delivery Room Air Room Air Room Air Room Air O2 Flow Rate 96.0 96.0 96.0 08/06/18 08/07/18 08/07/18 08/07/18 23:59 00:15 00:30 00:45 Pulse 76 74 Resp 14 17 14 B/P (MAP) 120/65 (83) 120/67 (84) O2 Delivery Room Air Room Air Room Air O2 Flow Rate 97.0 97.0 97.0 08/07/18 08/07/18 08/07/18 08/07/18 00:45 01:00 01:15 02:00 Pulse 74 71 75 73 Resp 19 18 14 16 B/P (MAP) 119/62 (81) 107/54 (71) 113/55 (74) 118/56 (76) O2 Delivery Room Air Room Air Room Air Room Air O2 Flow Rate 97.0 98.0 98.0 99.0 08/07/18 08/07/18 08/07/18 08/07/18 03:04 04:00 04:00 05:00 Temp 98.4 98.4 Pulse 72 76 72 Resp 16 20 20 B/P (MAP) 112/58 (76) 128/61 (83) 112/58 (76) O2 Delivery Room Air Room Air Room Air Room Air O2 Flow Rate 99.0 97.0 97.0 98.0 08/07/18 08/07/18 08/07/18 08/07/18 05:56 06:00 06:56 07:00 Temp 98.5 98.5 Pulse 89 75 Resp 13 18 12 B/P (MAP) 140/79 (99) 148/83 (104) Pulse Ox 98 100 100 96 O2 Delivery Room Air Room Air Room Air O2 Flow Rate 98.0 08/07/18 08/07/18 08/07/18 08/07/18 08:00 08:00 08:59 09:00 Pulse 73 73 73 Resp 12 14 B/P (MAP) 133/73 (93) 133/73 157/82 (107) Pulse Ox 94 98 O2 Delivery Room Air Room Air Room Air 08/07/18 09:01 Pulse 73 B/P (MAP) 157/82 Intake and Output 08/06/18 08/06/18 08/07/18 14:59 22:59 06:59 Intake Total 644 ml Output Total 0 ml 800 ml Balance 0 ml -156 ml IRENA VAIL MD Aug 07, 2018 10:29
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
--- NOTE | 2018-08-07 10:44 | RAD ---
EXAM: Renal sonogram. HISTORY: Renal failure. TECHNIQUE: Sonographic imaging of the kidneys and bladder was performed. COMPARISON: None. FINDINGS: The right kidney measures 13.1 cm [id number]. Left kidney measures 12.6 cm [id number]. There is a 1.9 cm right renal cyst. No solid renal lesion is seen. There is echogenic renal parenchyma. There is no hydronephrosis. There is a prominent right renal pelvis. The bladder is unremarkable. IMPRESSION: 1. Slightly echogenic renal parenchyma. This can be seen with medical renal disease. 2. Small right renal cyst. 3. Prominent right renal pelvis without thiago hydronephrosis. Electronically signed by: Linh Ovalles MD (08/07/2018 10:41 AM) [id number]
--- NOTE | 2018-08-07 11:37 | PDOC2 ---
CONSULT Date of Consult Date of Consult DATE: 08/07/18 TIME: 11:31 Reason for Consult Reason for Consult: TAD Referring Physician Referring Physician: VERENICE Identification/Chief Complaint Chief Complaint SLURRED SPEECH AND CONFUSION Source Source: Chart review History of Present Illness Reason for Visit: THIS IS A 52 YR OLD WITH CVA AND ICB. NOTED TO HAVE SLURRED SPEECH AND CONFUSION PRESENTING SYMPTOMS. PT ALSO NOTED TO HAVE CR OF 3.5. HAD CR OF 2.0 -2.5 AT [facility] A YEAR AGO WHILE INPT. ALSO NOTED TO HAVE HGB OF 8.2 WITH NO REPORTED HX OF BLOOD LOSS. NO HEMODYNAMIC INSTABILITY AND NO NEPHROTOXINS AND NO OTHER HX Past Medical History Cardiovascular: AFIB, HTN, Hyperlipidemia CENTRAL NERVOUS SYSTEM: CVA Musculoskeletal: Osteoarthritis, Other Renal/: Chronic renal insuff Endocrine: Diabetes Past Surgical History Past Surgical History: Other Family History Family History: No Significant Social History ALCOHOL: none Drugs: None Lives: with Family Current Problem List Problem List Problems Medical Problems: (1) Bvymb-yu-[id number] renal failure Status: Acute (2) Intracranial hemorrhage Status: Acute Current Medications Current Medications Current Medications Labetalol HCl (Normodyne Iv Push) 10 mg 1X ONCE IVP Last administered on at 17:27; Start 08/06/18 at 17:15; Stop 08/06/18 at 17:16; Status DC Nicardipine HCl 50 mg/Sodium Chloride 250 ml @ 25 mls/hr CONT PRN IV SEE I/O RECORD Last administered on 08/06/18at 22:09; Start 08/06/18 at 17:30 Prothrombin Complex Concent (Human) 4000 unit/ Miscellaneous 160 ml @ 8.4 mls/ min 1X ONCE IV ; Start 08/06/18 at 18:30; Stop 08/06/18 at 18:49; Status Cancel Labetalol HCl (Normodyne Iv Push) 10 mg 1X ONCE IVP Last administered on at 18:30; Start 08/06/18 at 18:30; Stop 08/06/18 at 18:31; Status DC Prothrombin Complex Concent (Human) 4000 unit/ Miscellaneous 160 ml @ 8.4 mls/ min 1X ONCE IV Last administered on 08/06/18at 19:30; Start 08/06/18 at 20:30; Stop 08/06/18 at 20:49; Status DC Amlodipine Besylate (Norvasc) 10 mg DAILY PO Last administered on 08/07/18 09: 01; Start 08/07/18 at 09:00 Atorvastatin Calcium (Lipitor) 40 mg HS PO Last administered on 08/06/18at 22:06 ; Start 08/06/18 at 21:00 Carvedilol (Coreg) 12.5 mg BIDWMEALS PO Last administered on 08/06/18at 22:06; Start 08/06/18 at 21:00 Docusate Sodium (Colace) 100 mg PRN DAILY PRN PO CONSTIPATION 1ST CHOICE; Start 08/06/18 at 21:00 Acetaminophen/ Hydrocodone Bitart (Lortab 7.5/325) 1 tab PRN Q4HRS PRN PO MODERATE PAIN Last administered on 08/07/18at 10:58; Start 08/06/18 at 21:00 Insulin Glargine (Lantus) 20 units HS SQ Last administered on 08/06/18at 22:03; Start 08/06/18 at 21:00 Lisinopril (Prinivil) 40 mg BID PO ; Start 08/06/18 at 21:00; Stop 08/06/18 at 21:25; Status DC Hydralazine HCl (Apresoline) 50 mg BID PO Last administered on 08/07/18at 08:59 ; Start 08/06/18 at 21:00 Insulin Human Lispro (HumaLOG) 5 units TIDWMEALS SQ Last administered on at 09:05; Start 08/07/18 at 08:00 Pantoprazole Sodium (Protonix) 40 mg DAILYAC PO Last administered on 08/07/18at 09:00; Start 08/07/18 at 07:30 Insulin Human Lispro (HumaLOG) 0-5 UNITS TIDWMEALS SQ ; Start 08/07/18 at 08:00 Dextrose (Dextrose 50%-Water Syringe) 12.5 gm PRN Q15MIN PRN IV SEE COMMENTS; Start 08/07/18 at 06:30 Active Scripts Active Ferrous Sulfate 325 Mg Tablet 1 Tab PO DAILY Levaquin (Levofloxacin) 500 Mg Tablet 500 Mg PO DAILY06 10 Days Reported Lantus Solostar (Insulin Glargine,Hum.rec.anlog) 100 Unit/1 Ml Insuln.pen 20 Unit SQ HS Hydralazine Hcl 50 Mg Tablet 50 Mg PO BID Amlodipine Besylate 10 Mg Tablet 10 Mg PO DAILY Lisinopril 40 Mg Tablet 40 Mg PO BID Atorvastatin Calcium 40 Mg Tablet 40 Mg PO HS Aspirin 81 Mg Tab.chew 81 Mg PO DAILY Humalog Kwikpen (Insulin Lispro) 200 Unit/1 Ml Insuln.pen 5 Unit SQ TIDWMEALS Tramadol Hcl 50 Mg Tablet 2 Tab PO PRN Q6HRS Protonix (Pantoprazole Sodium) 20 Mg Tablet.dr 2 Tab PO DAILY Docusate Sodium 100 Mg Capsule 1 Cap PO PRN DAILY PRN Carvedilol (Carvedilol) 12.5 Mg Tablet 1 Tab PO BID Eliquis (Apixaban) 5 Mg Tab.ds.pk 5 Mg PO BID Hydrocodone-Apap 7.5-325 (Hydrocodone Bit/Acetaminophen) 1 Each Tablet 1 Tab PO PRN Q4HRS PRN Allergies Allergies: Coded Allergies: piperacillin (Verified Allergy, Intermediate, 10/07/17) TOLERATES AMPICILLIN tazobactam (Verified Allergy, Intermediate, 07/15/17) vancomycin (Verified Allergy, Intermediate, 01/26/17) ROS Review of System UNABLE TO OBTAIN, SOME INFO FROM MOTHER ABOVE Physical Exam General: Cooperative, No acute distress HEENT: Atraumatic, PERRLA, EOMI, Mucous membr. moist/pink Lungs: Clear to auscultation Heart: Regular rate Abdomen: Normal bowel sounds, Soft, No tenderness Extremities: No cyanosis Skin: No breakdown Neuro: Other (SLURRED SPEECH WITH FACIAL DROOP LEFT) MUSCULOSKELETAL: No joint tenderness, No deformity, No swelling Vitals VITALS Vital Signs Date Time Temp Pulse Resp B/P (MAP) Pulse Ox O2 Delivery O2 Flow Rate FiO2 08/07/18 11:07 97.7 79 12 152/80 (104) 100 Room Air 97.7 08/07/18 06:56 98.0 Labs Labs Laboratory Tests Test 08/06/18 17:00 08/06/18 17:15 08/06/18 20:20 08/07/18 07:15 White Blood Count 5.5 x10^3/uL (4.0-11.0) 4.9 x10^3/uL (4.0-11.0) Red Blood Count 3.17 x10^6/uL (4.30-5.70) 2.77 x10^6/uL (4.30-5.70) Hemoglobin 9.3 g/dL (13.0-17.5) 8.2 g/dL (13.0-17.5) Hematocrit 28.4 % (39.0-53.0) 24.9 % (39.0-53.0) Mean Corpuscular Volume 90 fL (79-100) 90 fL (79-100) Mean Corpuscular Hemoglobin 29 pg (25-35) 30 pg (25-35) Mean Corpuscular Hemoglobin Concent 33 g/dL (31-37) 33 g/dL (31-37) Red Cell Distribution Width 15.7 % (11.5-14.5) 16.0 % (11.5-14.5) Platelet Count 220 x10^3/uL (140-400) 199 x10^3/uL (140-400) Neutrophils (%) (Auto) 72 % (31-73) 58 % (31-73) Lymphocytes (%) (Auto) 17 % (24-48) 28 % (24-48) Monocytes (%) (Auto) 7 % (0-9) 10 % (0-9) Eosinophils (%) (Auto) 2 % (0-3) 3 % (0-3) Basophils (%) (Auto) 1 % (0-3) 1 % (0-3) Neutrophils # (Auto) 4.0 x10^3uL (1.8-7.7) 2.8 x10^3uL (1.8-7.7) Lymphocytes # (Auto) 1.0 x10^3/uL (1.0-4.8) 1.4 x10^3/uL (1.0-4.8) Monocytes # (Auto) 0.4 x10^3/uL (0.0-1.1) 0.5 x10^3/uL (0.0-1.1) Eosinophils # (Auto) 0.1 x10^3/uL (0.0-0.7) 0.2 x10^3/uL (0.0-0.7) Basophils # (Auto) 0.1 x10^3/uL (0.0-0.2) 0.0 x10^3/uL (0.0-0.2) Prothrombin Time 15.2 SEC (11.7-14.0) Prothromb Time International Ratio 1.2 (0.8-1.1) Activated Partial Thromboplast Time 44 SEC (24-38) Urine Collection Type Unknown Urine Color Yellow Urine Clarity Clear Urine pH 6.5 Urine Specific [place] 1.015 Urine Protein >=300 mg/dL (NEG-TRACE) Urine Glucose (UA) 250 mg/dL (NEG) Urine Ketones (Stick) Negative mg/dL (NEG) Urine Blood Small (NEG) Urine Nitrite Negative (NEG) Urine Bilirubin Negative (NEG) Urine Urobilinogen Dipstick 0.2 mg/dL (0.2 mg/dL) Urine Leukocyte Esterase Negative (NEG) Urine RBC 11-20 /HPF (0-2) Urine WBC Occ /HPF (0-4) Urine Squamous Epithelial Cells Occ /LPF Urine Bacteria 0 /HPF (0-FEW) Sodium Level 139 mmol/L (136-145) 142 mmol/L (136-145) Potassium Level 4.3 mmol/L (3.5-5.1) 4.0 mmol/L (3.5-5.1) Chloride Level 104 mmol/L (98-107) 109 mmol/L (98-107) Carbon Dioxide Level 25 mmol/L (21-32) 23 mmol/L (21-32) Anion Gap 10 (6-14) 18 mmol/L (6-14) 10 (6-14) Blood Urea Nitrogen 44 mg/dL (8-26) 46 mg/dL (8-26) Creatinine 3.5 mg/dL (0.7-1.3) 3.5 mg/dL (0.7-1.3) Estimated GFR (Cockcroft-Gault) 22.4 22.4 BUN/Creatinine Ratio 13 (6-20) Glucose Level 235 mg/dL (70-99) 231 mg/dL (70-99) 88 mg/dL (70-99) Glucose (Fingerstick) 231 mg/dL (70-99) 208 mg/dL (70-99) Lactic Acid Level 0.9 mmol/L (0.4-2.0) Calcium Level 8.6 mg/dL (8.5-10.1) 8.4 mg/dL (8.5-10.1) Magnesium Level 1.9 mg/dL (1.8-2.4) Total Bilirubin 0.7 mg/dL (0.2-1.0) Aspartate Amino Transf (AST/SGOT) 15 U/L (15-37) Alanine Aminotransferase (ALT/SGPT) 22 U/L (16-63) Alkaline Phosphatase 180 U/L (46-116) Creatine Kinase 278 U/L (39-308) Creatine Kinase MB (Mass) 1.8 ng/mL (0.0-3.6) Creatine Kinase MB Relative Index 0.6 % (0-4) Troponin I Quantitative 0.477 ng/mL (0.000-0.055) IO-Qzo-N-Type Natriuretic Peptide 04633 pg/mL (0-124) Total Protein 8.4 g/dL (6.4-8.2) Albumin 2.7 g/dL (3.4-5.0) Albumin/Globulin Ratio 0.5 (1.0-1.7) Thyroid Stimulating Hormone (TSH) 0.427 uIU/mL (0.358-3.74) Urine Opiates Screen Neg (NEG) Urine Methadone Screen Neg (NEG) Urine Barbiturates Neg (NEG) Urine Phencyclidine Screen Neg (NEG) Urine Amphetamine/Methamphetamine Neg (NEG) Urine Benzodiazepines Screen Neg (NEG) Urine Cocaine Screen Neg (NEG) Urine Cannabinoids Screen Neg (NEG) Urine Ethyl Alcohol Neg (NEG) Bedside Hemoglobin 9.5 g/dL (14-18) Bedside Hematocrit 28 % (37-52) Bedside Sodium 140 mmol/L (135-145) Bedside Potassium 4.3 mmol/L (3.5-5.0) Bedside Chloride 107 mmol/L (98-110) Bedside Total CO2 20 mmol/L (23-32) Bedside Blood Urea Nitrogen 40 mg/dL (8-26) Bedside Creatinine 3.4 mg/dL (0.5-1.4) Bedside Ionized Calcium ([place]) 1.14 mmol/L (1.13-1.32) Test 08/07/18 08:36 Glucose (Fingerstick) 72 mg/dL (70-99) Laboratory Tests Test 08/06/18 17:00 08/06/18 17:15 08/06/18 20:20 08/07/18 07:15 White Blood Count 5.5 x10^3/uL (4.0-11.0) 4.9 x10^3/uL (4.0-11.0) Red Blood Count 3.17 x10^6/uL (4.30-5.70) 2.77 x10^6/uL (4.30-5.70) Hemoglobin 9.3 g/dL (13.0-17.5) 8.2 g/dL (13.0-17.5) Hematocrit 28.4 % (39.0-53.0) 24.9 % (39.0-53.0) Mean Corpuscular Volume 90 fL (79-100) 90 fL (79-100) Mean Corpuscular Hemoglobin 29 pg (25-35) 30 pg (25-35) Mean Corpuscular Hemoglobin Concent 33 g/dL (31-37) 33 g/dL (31-37) Red Cell Distribution Width 15.7 % (11.5-14.5) 16.0 % (11.5-14.5) Platelet Count 220 x10^3/uL (140-400) 199 x10^3/uL (140-400) Neutrophils (%) (Auto) 72 % (31-73) 58 % (31-73) Lymphocytes (%) (Auto) 17 % (24-48) 28 % (24-48) Monocytes (%) (Auto) 7 % (0-9) 10 % (0-9) Eosinophils (%) (Auto) 2 % (0-3) 3 % (0-3) Basophils (%) (Auto) 1 % (0-3) 1 % (0-3) Neutrophils # (Auto) 4.0 x10^3uL (1.8-7.7) 2.8 x10^3uL (1.8-7.7) Lymphocytes # (Auto) 1.0 x10^3/uL (1.0-4.8) 1.4 x10^3/uL (1.0-4.8) Monocytes # (Auto) 0.4 x10^3/uL (0.0-1.1) 0.5 x10^3/uL (0.0-1.1) Eosinophils # (Auto) 0.1 x10^3/uL (0.0-0.7) 0.2 x10^3/uL (0.0-0.7) Basophils # (Auto) 0.1 x10^3/uL (0.0-0.2) 0.0 x10^3/uL (0.0-0.2) Prothrombin Time 15.2 SEC (11.7-14.0) Prothromb Time International Ratio 1.2 (0.8-1.1) Activated Partial Thromboplast Time 44 SEC (24-38) Urine Collection Type Unknown Urine Color Yellow Urine Clarity Clear Urine pH 6.5 Urine Specific [place] 1.015 Urine Protein >=300 mg/dL (NEG-TRACE) Urine Glucose (UA) 250 mg/dL (NEG) Urine Ketones (Stick) Negative mg/dL (NEG) Urine Blood Small (NEG) Urine Nitrite Negative (NEG) Urine Bilirubin Negative (NEG) Urine Urobilinogen Dipstick 0.2 mg/dL (0.2 mg/dL) Urine Leukocyte Esterase Negative (NEG) Urine RBC 11-20 /HPF (0-2) Urine WBC Occ /HPF (0-4) Urine Squamous Epithelial Cells Occ /LPF Urine Bacteria 0 /HPF (0-FEW) Sodium Level 139 mmol/L (136-145) 142 mmol/L (136-145) Potassium Level 4.3 mmol/L (3.5-5.1) 4.0 mmol/L (3.5-5.1) Chloride Level 104 mmol/L (98-107) 109 mmol/L (98-107) Carbon Dioxide Level 25 mmol/L (21-32) 23 mmol/L (21-32) Anion Gap 10 (6-14) 18 mmol/L (6-14) 10 (6-14) Blood Urea Nitrogen 44 mg/dL (8-26) 46 mg/dL (8-26) Creatinine 3.5 mg/dL (0.7-1.3) 3.5 mg/dL (0.7-1.3) Estimated GFR (Cockcroft-Gault) 22.4 22.4 BUN/Creatinine Ratio 13 (6-20) Glucose Level 235 mg/dL (70-99) 231 mg/dL (70-99) 88 mg/dL (70-99) Glucose (Fingerstick) 231 mg/dL (70-99) 208 mg/dL (70-99) Lactic Acid Level 0.9 mmol/L (0.4-2.0) Calcium Level 8.6 mg/dL (8.5-10.1) 8.4 mg/dL (8.5-10.1) Magnesium Level 1.9 mg/dL (1.8-2.4) Total Bilirubin 0.7 mg/dL (0.2-1.0) Aspartate Amino Transf (AST/SGOT) 15 U/L (15-37) Alanine Aminotransferase (ALT/SGPT) 22 U/L (16-63) Alkaline Phosphatase 180 U/L (46-116) Creatine Kinase 278 U/L (39-308) Creatine Kinase MB (Mass) 1.8 ng/mL (0.0-3.6) Creatine Kinase MB Relative Index 0.6 % (0-4) Troponin I Quantitative 0.477 ng/mL (0.000-0.055) EN-Fdu-F-Type Natriuretic Peptide 56709 pg/mL (0-124) Total Protein 8.4 g/dL (6.4-8.2) Albumin 2.7 g/dL (3.4-5.0) Albumin/Globulin Ratio 0.5 (1.0-1.7) Thyroid Stimulating Hormone (TSH) 0.427 uIU/mL (0.358-3.74) Urine Opiates Screen Neg (NEG) Urine Methadone Screen Neg (NEG) Urine Barbiturates Neg (NEG) Urine Phencyclidine Screen Neg (NEG) Urine Amphetamine/Methamphetamine Neg (NEG) Urine Benzodiazepines Screen Neg (NEG) Urine Cocaine Screen Neg (NEG) Urine Cannabinoids Screen Neg (NEG) Urine Ethyl Alcohol Neg (NEG) Bedside Hemoglobin 9.5 g/dL (14-18) Bedside Hematocrit 28 % (37-52) Bedside Sodium 140 mmol/L (135-145) Bedside Potassium 4.3 mmol/L (3.5-5.0) Bedside Chloride 107 mmol/L (98-110) Bedside Total CO2 20 mmol/L (23-32) Bedside Blood Urea Nitrogen 40 mg/dL (8-26) Bedside Creatinine 3.4 mg/dL (0.5-1.4) Bedside Ionized Calcium ([place]) 1.14 mmol/L (1.13-1.32) Test 08/07/18 08:36 Glucose (Fingerstick) 72 mg/dL (70-99) Images Images CT NOTED Assessment/Plan Assessment/Plan IMP ICB CVA HTN DM I CKD STAGE 3-CR OF 2.0 TAD-CR OF 3.5 MAY BE NEW BASELINE ANEMIA OF CHRONIC DZ PLAN RENAL SONO HYDRATION ENC COMPLIANCE CONTROL BP CONTROL BG WILL CONSIDER NEFTALI-I ONCE MORE STABLE NEURO/NS EVAL HAVE ASKED THEM TO F/U IN OFFICE HE HAS NOT SEEN ANY DOCTORS IN YEARS LUIS SAVAGE MD Aug 07, 2018 11:37
[2018-08-07] MEDS: IV NORMAL SALINE 1000ML BAG 1,000 ML IV SCH (11:44)
--- NOTE | 2018-08-07 11:57 | PDOC ---
PROGRESS NOTES Subjective Subjective Patient seen and examined admitted with facial droop and HTN on exam, inattentive, facial droop, answers questions appropriately Acute hyperdense intracranial hemorrhage involving the caudate nucleus and centrum semiovale on the right side. f/u CT head pending blood pressure control will follow full consult to follow Objective Objective Vital Signs Date Time Temp Pulse Resp B/P (MAP) Pulse Ox O2 Delivery O2 Flow Rate FiO2 08/07/18 11:07 97.7 79 12 152/80 (104) 100 Room Air 97.7 08/07/18 06:56 98.0 Intake and Output 08/07/18 06:59 Intake Total 644 ml Output Total 800 ml Balance -156 ml Intake Oral 275 ml IV Total 369 ml Output Urine Total 800 ml Assessment Assessment Problems Medical Problems: (1) [id number] renal failure Status: Acute (2) Intracranial hemorrhage Status: Acute Comment Review of Relevant I have reviewed the following items bibi (where applicable) has been applied. Labs Laboratory Tests Test 08/06/18 17:00 08/06/18 17:15 08/06/18 20:20 08/07/18 07:15 White Blood Count 5.5 x10^3/uL (4.0-11.0) 4.9 x10^3/uL (4.0-11.0) Red Blood Count 3.17 x10^6/uL (4.30-5.70) 2.77 x10^6/uL (4.30-5.70) Hemoglobin 9.3 g/dL (13.0-17.5) 8.2 g/dL (13.0-17.5) Hematocrit 28.4 % (39.0-53.0) 24.9 % (39.0-53.0) Mean Corpuscular Volume 90 fL (79-100) 90 fL (79-100) Mean Corpuscular Hemoglobin 29 pg (25-35) 30 pg (25-35) Mean Corpuscular Hemoglobin Concent 33 g/dL (31-37) 33 g/dL (31-37) Red Cell Distribution Width 15.7 % (11.5-14.5) 16.0 % (11.5-14.5) Platelet Count 220 x10^3/uL (140-400) 199 x10^3/uL (140-400) Neutrophils (%) (Auto) 72 % (31-73) 58 % (31-73) Lymphocytes (%) (Auto) 17 % (24-48) 28 % (24-48) Monocytes (%) (Auto) 7 % (0-9) 10 % (0-9) Eosinophils (%) (Auto) 2 % (0-3) 3 % (0-3) Basophils (%) (Auto) 1 % (0-3) 1 % (0-3) Neutrophils # (Auto) 4.0 x10^3uL (1.8-7.7) 2.8 x10^3uL (1.8-7.7) Lymphocytes # (Auto) 1.0 x10^3/uL (1.0-4.8) 1.4 x10^3/uL (1.0-4.8) Monocytes # (Auto) 0.4 x10^3/uL (0.0-1.1) 0.5 x10^3/uL (0.0-1.1) Eosinophils # (Auto) 0.1 x10^3/uL (0.0-0.7) 0.2 x10^3/uL (0.0-0.7) Basophils # (Auto) 0.1 x10^3/uL (0.0-0.2) 0.0 x10^3/uL (0.0-0.2) Prothrombin Time 15.2 SEC (11.7-14.0) Prothromb Time International Ratio 1.2 (0.8-1.1) Activated Partial Thromboplast Time 44 SEC (24-38) Urine Collection Type Unknown Urine Color Yellow Urine Clarity Clear Urine pH 6.5 Urine Specific [place] 1.015 Urine Protein >=300 mg/dL (NEG-TRACE) Urine Glucose (UA) 250 mg/dL (NEG) Urine Ketones (Stick) Negative mg/dL (NEG) Urine Blood Small (NEG) Urine Nitrite Negative (NEG) Urine Bilirubin Negative (NEG) Urine Urobilinogen Dipstick 0.2 mg/dL (0.2 mg/dL) Urine Leukocyte Esterase Negative (NEG) Urine RBC 11-20 /HPF (0-2) Urine WBC Occ /HPF (0-4) Urine Squamous Epithelial Cells Occ /LPF Urine Bacteria 0 /HPF (0-FEW) Sodium Level 139 mmol/L (136-145) 142 mmol/L (136-145) Potassium Level 4.3 mmol/L (3.5-5.1) 4.0 mmol/L (3.5-5.1) Chloride Level 104 mmol/L (98-107) 109 mmol/L (98-107) Carbon Dioxide Level 25 mmol/L (21-32) 23 mmol/L (21-32) Anion Gap 10 (6-14) 18 mmol/L (6-14) 10 (6-14) Blood Urea Nitrogen 44 mg/dL (8-26) 46 mg/dL (8-26) Creatinine 3.5 mg/dL (0.7-1.3) 3.5 mg/dL (0.7-1.3) Estimated GFR (Cockcroft-Gault) 22.4 22.4 BUN/Creatinine Ratio 13 (6-20) Glucose Level 235 mg/dL (70-99) 231 mg/dL (70-99) 88 mg/dL (70-99) Glucose (Fingerstick) 231 mg/dL (70-99) 208 mg/dL (70-99) Lactic Acid Level 0.9 mmol/L (0.4-2.0) Calcium Level 8.6 mg/dL (8.5-10.1) 8.4 mg/dL (8.5-10.1) Magnesium Level 1.9 mg/dL (1.8-2.4) Total Bilirubin 0.7 mg/dL (0.2-1.0) Aspartate Amino Transf (AST/SGOT) 15 U/L (15-37) Alanine Aminotransferase (ALT/SGPT) 22 U/L (16-63) Alkaline Phosphatase 180 U/L (46-116) Creatine Kinase 278 U/L (39-308) Creatine Kinase MB (Mass) 1.8 ng/mL (0.0-3.6) Creatine Kinase MB Relative Index 0.6 % (0-4) Troponin I Quantitative 0.477 ng/mL (0.000-0.055) HW-Xfr-[id number]-Type Natriuretic Peptide 68779 pg/mL (0-124) Total Protein 8.4 g/dL (6.4-8.2) Albumin 2.7 g/dL (3.4-5.0) Albumin/Globulin Ratio 0.5 (1.0-1.7) Thyroid Stimulating Hormone (TSH) 0.427 uIU/mL (0.358-3.74) Urine Opiates Screen Neg (NEG) Urine Methadone Screen Neg (NEG) Urine Barbiturates Neg (NEG) Urine Phencyclidine Screen Neg (NEG) Urine Amphetamine/Methamphetamine Neg (NEG) Urine Benzodiazepines Screen Neg (NEG) Urine Cocaine Screen Neg (NEG) Urine Cannabinoids Screen Neg (NEG) Urine Ethyl Alcohol Neg (NEG) Bedside Hemoglobin 9.5 g/dL (14-18) Bedside Hematocrit 28 % (37-52) Bedside Sodium 140 mmol/L (135-145) Bedside Potassium 4.3 mmol/L (3.5-5.0) Bedside Chloride 107 mmol/L (98-110) Bedside Total CO2 20 mmol/L (23-32) Bedside Blood Urea Nitrogen 40 mg/dL (8-26) Bedside Creatinine 3.4 mg/dL (0.5-1.4) Bedside Ionized Calcium ([place]) 1.14 mmol/L (1.13-1.32) Test 08/07/18 08:36 Glucose (Fingerstick) 72 mg/dL (70-99) Laboratory Tests Test 08/06/18 17:00 08/06/18 17:15 08/06/18 20:20 08/07/18 07:15 White Blood Count 5.5 x10^3/uL (4.0-11.0) 4.9 x10^3/uL (4.0-11.0) Red Blood Count 3.17 x10^6/uL (4.30-5.70) 2.77 x10^6/uL (4.30-5.70) Hemoglobin 9.3 g/dL (13.0-17.5) 8.2 g/dL (13.0-17.5) Hematocrit 28.4 % (39.0-53.0) 24.9 % (39.0-53.0) Mean Corpuscular Volume 90 fL (79-100) 90 fL (79-100) Mean Corpuscular Hemoglobin 29 pg (25-35) 30 pg (25-35) Mean Corpuscular Hemoglobin Concent 33 g/dL (31-37) 33 g/dL (31-37) Red Cell Distribution Width 15.7 % (11.5-14.5) 16.0 % (11.5-14.5) Platelet Count 220 x10^3/uL (140-400) 199 x10^3/uL (140-400) Neutrophils (%) (Auto) 72 % (31-73) 58 % (31-73) Lymphocytes (%) (Auto) 17 % (24-48) 28 % (24-48) Monocytes (%) (Auto) 7 % (0-9) 10 % (0-9) Eosinophils (%) (Auto) 2 % (0-3) 3 % (0-3) Basophils (%) (Auto) 1 % (0-3) 1 % (0-3) Neutrophils # (Auto) 4.0 x10^3uL (1.8-7.7) 2.8 x10^3uL (1.8-7.7) Lymphocytes # (Auto) 1.0 x10^3/uL (1.0-4.8) 1.4 x10^3/uL (1.0-4.8) Monocytes # (Auto) 0.4 x10^3/uL (0.0-1.1) 0.5 x10^3/uL (0.0-1.1) Eosinophils # (Auto) 0.1 x10^3/uL (0.0-0.7) 0.2 x10^3/uL (0.0-0.7) Basophils # (Auto) 0.1 x10^3/uL (0.0-0.2) 0.0 x10^3/uL (0.0-0.2) Prothrombin Time 15.2 SEC (11.7-14.0) Prothromb Time International Ratio 1.2 (0.8-1.1) Activated Partial Thromboplast Time 44 SEC (24-38) Urine Collection Type Unknown Urine Color Yellow Urine Clarity Clear Urine pH 6.5 Urine Specific [place] 1.015 Urine Protein >=300 mg/dL (NEG-TRACE) Urine Glucose (UA) 250 mg/dL (NEG) Urine Ketones (Stick) Negative mg/dL (NEG) Urine Blood Small (NEG) Urine Nitrite Negative (NEG) Urine Bilirubin Negative (NEG) Urine Urobilinogen Dipstick 0.2 mg/dL (0.2 mg/dL) Urine Leukocyte Esterase Negative (NEG) Urine RBC 11-20 /HPF (0-2) Urine WBC Occ /HPF (0-4) Urine Squamous Epithelial Cells Occ /LPF Urine Bacteria 0 /HPF (0-FEW) Sodium Level 139 mmol/L (136-145) 142 mmol/L (136-145) Potassium Level 4.3 mmol/L (3.5-5.1) 4.0 mmol/L (3.5-5.1) Chloride Level 104 mmol/L (98-107) 109 mmol/L (98-107) Carbon Dioxide Level 25 mmol/L (21-32) 23 mmol/L (21-32) Anion Gap 10 (6-14) 18 mmol/L (6-14) 10 (6-14) Blood Urea Nitrogen 44 mg/dL (8-26) 46 mg/dL (8-26) Creatinine 3.5 mg/dL (0.7-1.3) 3.5 mg/dL (0.7-1.3) Estimated GFR (Cockcroft-Gault) 22.4 22.4 BUN/Creatinine Ratio 13 (6-20) Glucose Level 235 mg/dL (70-99) 231 mg/dL (70-99) 88 mg/dL (70-99) Glucose (Fingerstick) 231 mg/dL (70-99) 208 mg/dL (70-99) Lactic Acid Level 0.9 mmol/L (0.4-2.0) Calcium Level 8.6 mg/dL (8.5-10.1) 8.4 mg/dL (8.5-10.1) Magnesium Level 1.9 mg/dL (1.8-2.4) Total Bilirubin 0.7 mg/dL (0.2-1.0) Aspartate Amino Transf (AST/SGOT) 15 U/L (15-37) Alanine Aminotransferase (ALT/SGPT) 22 U/L (16-63) Alkaline Phosphatase 180 U/L (46-116) Creatine Kinase 278 U/L (39-308) Creatine Kinase MB (Mass) 1.8 ng/mL (0.0-3.6) Creatine Kinase MB Relative Index 0.6 % (0-4) Troponin I Quantitative 0.477 ng/mL (0.000-0.055) [id number]-Type Natriuretic Peptide 06152 pg/mL (0-124) Total Protein 8.4 g/dL (6.4-8.2) Albumin 2.7 g/dL (3.4-5.0) Albumin/Globulin Ratio 0.5 (1.0-1.7) Thyroid Stimulating Hormone (TSH) 0.427 uIU/mL (0.358-3.74) Urine Opiates Screen Neg (NEG) Urine Methadone Screen Neg (NEG) Urine Barbiturates Neg (NEG) Urine Phencyclidine Screen Neg (NEG) Urine Amphetamine/Methamphetamine Neg (NEG) Urine Benzodiazepines Screen Neg (NEG) Urine Cocaine Screen Neg (NEG) Urine Cannabinoids Screen Neg (NEG) Urine Ethyl Alcohol Neg (NEG) Bedside Hemoglobin 9.5 g/dL (14-18) Bedside Hematocrit 28 % (37-52) Bedside Sodium 140 mmol/L (135-145) Bedside Potassium 4.3 mmol/L (3.5-5.0) Bedside Chloride 107 mmol/L (98-110) Bedside Total CO2 20 mmol/L (23-32) Bedside Blood Urea Nitrogen 40 mg/dL (8-26) Bedside Creatinine 3.4 mg/dL (0.5-1.4) Bedside Ionized Calcium ([place]) 1.14 mmol/L (1.13-1.32) Test 08/07/18 08:36 Glucose (Fingerstick) 72 mg/dL (70-99) Medications Current Medications Labetalol HCl (Normodyne Iv Push) 10 mg 1X ONCE IVP Last administered on at 17:27; Start 08/06/18 at 17:15; Stop 08/06/18 at 17:16; Status DC Nicardipine HCl 50 mg/Sodium Chloride 250 ml @ 25 mls/hr CONT PRN IV SEE I/O RECORD Last administered on 08/06/18at 22:09; Start 08/06/18 at 17:30 Prothrombin Complex Concent (Human) 4000 unit/ Miscellaneous 160 ml @ 8.4 mls/ min 1X ONCE IV ; Start 08/06/18 at 18:30; Stop 08/06/18 at 18:49; Status Cancel Labetalol HCl (Normodyne Iv Push) 10 mg 1X ONCE IVP Last administered on at 18:30; Start 08/06/18 at 18:30; Stop 08/06/18 at 18:31; Status DC Prothrombin Complex Concent (Human) 4000 unit/ Miscellaneous 160 ml @ 8.4 mls/ min 1X ONCE IV Last administered on 08/06/18at 19:30; Start 08/06/18 at 20:30; Stop 08/06/18 at 20:49; Status DC Amlodipine Besylate (Norvasc) 10 mg DAILY PO Last administered on 08/07/18 09: 01; Start 08/07/18 at 09:00 Atorvastatin Calcium (Lipitor) 40 mg HS PO Last administered on 08/06/18at 22:06 ; Start 08/06/18 at 21:00 Carvedilol (Coreg) 12.5 mg BIDWMEALS PO Last administered on 08/06/18at 22:06; Start 08/06/18 at 21:00 Docusate Sodium (Colace) 100 mg PRN DAILY PRN PO CONSTIPATION 1ST CHOICE; Start 08/06/18 at 21:00 Acetaminophen/ Hydrocodone Bitart (Lortab 7.5/325) 1 tab PRN Q4HRS PRN PO MODERATE PAIN Last administered on 08/07/18at 10:58; Start 08/06/18 at 21:00 Insulin Glargine (Lantus) 20 units HS SQ Last administered on 08/06/18at 22:03; Start 08/06/18 at 21:00 Lisinopril (Prinivil) 40 mg BID PO ; Start 08/06/18 at 21:00; Stop 08/06/18 at 21:25; Status DC Hydralazine HCl (Apresoline) 50 mg BID PO Last administered on 08/07/18at 08:59 ; Start 08/06/18 at 21:00 Insulin Human Lispro (HumaLOG) 5 units TIDWMEALS SQ Last administered on 09:05; Start 08/07/18 at 08:00 Pantoprazole Sodium (Protonix) 40 mg DAILYAC PO Last administered on 08/07/18at 09:00; Start 08/07/18 at 07:30 Insulin Human Lispro (HumaLOG) 0-5 UNITS TIDWMEALS SQ ; Start 08/07/18 at 08:00 Dextrose (Dextrose 50%-Water Syringe) 12.5 gm PRN Q15MIN PRN IV SEE COMMENTS; Start 08/07/18 at 06:30 Sodium Chloride 1,000 ml @ 75 mls/hr [id number] IV Last administered on at 11:44; Start 08/07/18 at 11:45 Active Scripts Active Ferrous Sulfate 325 Mg Tablet 1 Tab PO DAILY Levaquin (Levofloxacin) 500 Mg Tablet 500 Mg PO DAILY06 10 Days Reported Lantus Solostar (Insulin Glargine,Hum.rec.anlog) 100 Unit/1 Ml Insuln.pen 20 Unit SQ HS Hydralazine Hcl 50 Mg Tablet 50 Mg PO BID Amlodipine Besylate 10 Mg Tablet 10 Mg PO DAILY Lisinopril 40 Mg Tablet 40 Mg PO BID Atorvastatin Calcium 40 Mg Tablet 40 Mg PO HS Aspirin 81 Mg Tab.chew 81 Mg PO DAILY Humalog Kwikpen (Insulin Lispro) 200 Unit/1 Ml Insuln.pen 5 Unit SQ TIDWMEALS Tramadol Hcl 50 Mg Tablet 2 Tab PO PRN Q6HRS Protonix (Pantoprazole Sodium) 20 Mg Tablet.dr 2 Tab PO DAILY Docusate Sodium 100 Mg Capsule 1 Cap PO PRN DAILY PRN Carvedilol (Carvedilol) 12.5 Mg Tablet 1 Tab PO BID Eliquis (Apixaban) 5 Mg Tab.ds.pk 5 Mg PO BID Hydrocodone-Apap 7.5-325 (Hydrocodone Bit/Acetaminophen) 1 Each Tablet 1 Tab PO PRN Q4HRS PRN Vitals/I & O Vital Sign - Last 24 Hours 08/06/18 08/06/18 08/06/18 08/06/18 16:55 17:27 17:48 17:54 Temp 99.1 99.1 Pulse 84 81 81 82 Resp 22 22 22 B/P (MAP) 191/95 (127) 198/101 Pulse Ox 99 94 98 O2 Delivery Room Air 08/06/18 08/06/18 08/06/18 08/06/18 18:03 18:08 18:13 18:18 Pulse 82 84 88 88 Resp 22 18 16 16 Pulse Ox 98 95 96 96 08/06/18 08/06/18 08/06/18 08/06/18 18:25 18:30 18:33 18:38 Pulse 94 90 90 84 Resp 16 16 16 B/P (MAP) 163/77 Pulse Ox 96 95 96 08/06/18 08/06/18 08/06/18 08/06/18 18:51 19:06 19:21 19:34 Pulse 82 84 84 82 Resp 16 16 16 16 Pulse Ox 96 95 96 97 08/06/18 08/06/18 08/06/18 08/06/18 19:36 20:00 20:15 20:15 Temp 98.8 98.8 Pulse 84 88 80 Resp 16 20 18 B/P (MAP) 154/81 (105) 150/82 (104) Pulse Ox 98 O2 Delivery Room Air Room Air Room Air O2 Flow Rate 98.0 97.0 98.0 08/06/18 08/06/18 08/06/18 08/06/18 20:30 20:45 21:00 21:30 Pulse 90 90 88 90 Resp 16 20 20 16 B/P (MAP) 154/75 (101) 153/71 (98) 152/75 (100) 153/71 (98) O2 Delivery Room Air Room Air Room Air Room Air O2 Flow Rate 98.0 92.0 92.0 92.0 08/06/18 08/06/18 08/06/18 08/06/18 22:00 22:00 22:05 22:06 Pulse 87 89 91 91 Resp 15 B/P (MAP) 146/69 150/89 (109) 149/74 149/74 O2 Delivery Room Air O2 Flow Rate 96.0 08/06/18 08/06/18 08/06/18 08/06/18 23:00 23:36 23:45 23:58 Temp 98.5 98.5 Pulse 88 88 78 Resp 20 15 20 20 B/P (MAP) 144/67 (92) 131/35 (67) 131/67 (88) Pulse Ox 95 O2 Delivery Room Air Room Air Room Air Room Air O2 Flow Rate 96.0 96.0 96.0 08/06/18 08/07/18 08/07/18 08/07/18 23:59 00:15 00:30 00:45 Pulse 76 74 Resp 17 14 B/P (MAP) 120/65 (83) 120/67 (84) O2 Delivery Room Air Room Air Room Air O2 Flow Rate 97.0 97.0 97.0 08/07/18 08/07/18 08/07/18 08/07/18 00:45 01:00 01:15 02:00 Pulse 74 71 75 73 Resp 19 18 14 16 B/P (MAP) 119/62 (81) 107/54 (71) 113/55 (74) 118/56 (76) O2 Delivery Room Air Room Air Room Air Room Air O2 Flow Rate 97.0 98.0 98.0 99.0 08/07/18 08/07/18 08/07/18 08/07/18 03:04 04:00 04:00 05:00 Temp 98.4 98.4 Pulse 72 76 72 Resp 16 20 20 B/P (MAP) 112/58 (76) 128/61 (83) 112/58 (76) O2 Delivery Room Air Room Air Room Air Room Air O2 Flow Rate 99.0 97.0 97.0 98.0 08/07/18 08/07/18 08/07/18 08/07/18 05:56 06:00 06:56 07:00 Temp 98.5 98.5 Pulse 89 75 Resp 18 12 B/P (MAP) 140/79 (99) 148/83 (104) Pulse Ox 98 100 100 96 O2 Delivery Room Air Room Air Room Air O2 Flow Rate 98.0 08/07/18 08/07/18 08/07/18 08/07/18 08:00 08:00 08:59 09:00 Pulse 73 73 73 Resp 12 14 B/P (MAP) 133/73 (93) 133/73 157/82 (107) Pulse Ox 94 98 O2 Delivery Room Air Room Air Room Air 08/07/18 08/07/18 08/07/18 08/07/18 09:01 10:00 10:58 11:07 Temp 97.7 97.7 Pulse 73 77 79 Resp 14 12 12 B/P (MAP) 157/82 122/66 (84) 152/80 (104) Pulse Ox 100 100 100 O2 Delivery Room Air Room Air Room Air Intake and Output 08/06/18 08/06/18 08/07/18 14:59 22:59 06:59 Intake Total 644 ml Output Total 0 ml 800 ml Balance 0 ml -156 ml AUSTEN REYNOLDS MD Aug 07, 2018 11:56
--- NOTE | 2018-08-07 12:52 | RAD ---
CT of the head without contrast, 08/07/2018: HISTORY: Follow-up intracranial hemorrhage Comparison is made to a study from 08/06/2018. There is an acute intracranial hemorrhage presents in the anterior aspect of the right basal ganglia extending superiorly into the centrum semiovale. It measures just over 3 cm in greatest diameter on the axial scans. It appears unchanged in size and configuration since yesterday's study. There is associated effacement of the right lateral ventricle anteriorly with a slight right to left shift of the midline structures. 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 No abnormal extra-axial fluid collection or mass is seen. There is calcific plaquing of the distal internal carotid arteries. IMPRESSION: Stable acute right basal ganglia hemorrhage. PQRS Compliance Statement: One or more of the following individualized dose reduction techniques were utilized for this examination: 1. Automated exposure control 2. Adjustment of the mA and/or kV according to patient size 3. Use of iterative reconstruction technique Electronically signed by: Branden Souza MD (08/07/2018 12:49 PM) [facility]
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
--- NOTE | 2018-08-07 15:47 | NUR ---
Wound Care Wound car consult for wound to left foot. Pt has DFU to left TMA with thick crusty callous. Cleansed wound, applied Medihoney and Xeroform covered with ABD and Kerlix. Recommend to change every 3 days. No other wounds found on full skin inspection. No other wounds found on full skin inspection. WC will continue to follow for possible changes. pt follows up with wound care as outpatient.
--- NOTE | 2018-08-07 15:53 | NUR ---
SS following for discharge planning. SS reviewed pt chart. Pt is from home and is currently on room air. No discharge needs noted at this time. SS will continue to follow for pending discharge needs.
[2018-08-07] MEDS: CARVEDILOL 12.5 MG TABLET. PO SCH (17:30)
[2018-08-07] MEDS: INSULIN GLARGINE 300 UNITS/3 ML INSULN.PEN. SQ SCH (21:20)
[2018-08-07 23:11] LABS: HEMOGLOBIN A1C 8.4 % (4.8-5.6)
[2018-08-08] MEDS: IV NORMAL SALINE 1000ML BAG 1,000 ML IV SCH (01:49)
[2018-08-08 03:00] VITALS: BP 158/87
[2018-08-08 05:18] LABS: BASO % 1 % (0-3); EOS # 0.2 x10^3/uL (0.0-0.7); EOS % 5 % (0-3); HEMATOCRIT 26.9 % (39.0-53.0); HEMOGLOBIN 8.9 g/dL (13.0-17.5); LYMPH # 1.2 x10^3/uL (1.0-4.8); LYMPH % 27 % (24-48); MEAN CORPUSCULAR HEMOGLOBIN 30 pg (25-35); MEAN CORPUSCULAR HGB CONC 33 g/dL (31-37); MEAN CORPUSCULAR VOLUME 90 fL (79-100); MONO # 0.5 x10^3/uL (0.0-1.1); MONO % 11 % (0-9); NEUT # 2.5 x10^3uL (1.8-7.7); NEUT % 56 % (31-73); PLATELET COUNT 206 x10^3/uL (140-400); WHITE BLOOD COUNT 4.5 x10^3/uL (4.0-11.0)
[2018-08-08 05:35] LABS: CREATININE 3.6 mg/dL (0.7-1.3); GFR 21.7; POTASSIUM 4.3 mmol/L (3.5-5.1)
[2018-08-08] MEDS: PANTOPRAZOLE 40 MG TABLET.DR. PO SCH (05:42)
[2018-08-08 07:00] VITALS: BP 155/82
[2018-08-08] MEDS: INSULIN LISPRO 300 UNITS/3 ML INSULN.PEN. SQ SCH ×6 (08:00→17:20)
[2018-08-08] MEDS: CARVEDILOL 12.5 MG TABLET. PO SCH ×2 (08:05→17:12)
[2018-08-08] MEDS: amLODIPine BESYLATE 10 MG TABLET PO SCH (09:09)
[2018-08-08] MEDS ORDERED: LABETALOL 20 MG/4 ML DISP.SYRIN. IVP PRN (09:15)
[2018-08-08] MEDS ORDERED: ONDANSETRON PF 4 MG/2 ML VIAL. IV PRN (09:15)
[2018-08-08] MEDS ORDERED: ACETAMINOPHEN 500 MG TABLET PO PRN (09:15)
[2018-08-08] MEDS ORDERED: ACETAMINOPHEN/CODEINE 300/30MG TABLET. PO PRN (09:15)
[2018-08-08] MEDS ORDERED: ONDANSETRON ODT 4 MG TAB.RAPDIS. PO PRN (09:15)
--- NOTE | 2018-08-08 09:38 | NUR ---
SW following for discharge planning. Discussed with RN, pt is from home. PT/OT is being ordered. SW will await PT/OT recommendations for discharge planning.
--- NOTE | 2018-08-08 10:43 | PDOC ---
PROGRESS NOTES Chief Complaint Chief Complaint Stable basal ganglia hemorrhage, films 08/07/18 Intracranial hemorrhage, acute Headaches Facial droop with accelerated hypertension Accel hypertension, uncontrolled, noncompliance, no PCP AK I on CK D secondary to long-standing hypertension History of Present Illness History of Present Illness MInimally cooperative by choice Transferred out of ICU fro ICH Stable brain bleed as per recent films There is evident right facial droop on exam, denies signif headaches to me today Blood pressure still the high side, creatinine still on the high side 3.6 from a baseline of 2-2.5 in the past years Sonogram supports medical renal disease PLAN: AVoid nephrotoxins Neuro checks frequently, watch out for further somnolence might need to rescan but so far stable bleed No blood thinners Continue to control blood pressure, no blood pressure greater than 160 systolic NOt ready for dc, creat worse Vitals Vitals Vital Signs Date Time Temp Pulse Resp B/P (MAP) Pulse Ox O2 Delivery O2 Flow Rate FiO2 08/08/18 09:10 76 155/82 08/08/18 07:00 97.9 16 96 Room Air 97.9 08/07/18 16:13 98.0 Physical Exam General: Cooperative, No acute distress Heart: Regular rate, Normal S1, Other (irrr) Lungs: Clear Abdomen: Normal bowel sounds, Soft, No tenderness Extremities: No clubbing, No cyanosis, Normal pulses Skin: No breakdown Labs LABS Laboratory Tests Test 08/07/18 12:39 08/07/18 16:53 08/07/18 20:40 08/08/18 04:45 Glucose (Fingerstick) 55 mg/dL (70-99) 167 mg/dL (70-99) 167 mg/dL (70-99) White Blood Count 4.5 x10^3/uL (4.0-11.0) Red Blood Count 3.00 x10^6/uL (4.30-5.70) Hemoglobin 8.9 g/dL (13.0-17.5) Hematocrit 26.9 % (39.0-53.0) Mean Corpuscular Volume 90 fL (79-100) Mean Corpuscular Hemoglobin 30 pg (25-35) Mean Corpuscular Hemoglobin Concent 33 g/dL (31-37) Red Cell Distribution Width 16.0 % (11.5-14.5) Platelet Count 206 x10^3/uL (140-400) Neutrophils (%) (Auto) 56 % (31-73) Lymphocytes (%) (Auto) 27 % (24-48) Monocytes (%) (Auto) 11 % (0-9) Eosinophils (%) (Auto) 5 % (0-3) Basophils (%) (Auto) 1 % (0-3) Neutrophils # (Auto) 2.5 x10^3uL (1.8-7.7) Lymphocytes # (Auto) 1.2 x10^3/uL (1.0-4.8) Monocytes # (Auto) 0.5 x10^3/uL (0.0-1.1) Eosinophils # (Auto) 0.2 x10^3/uL (0.0-0.7) Basophils # (Auto) 0.0 x10^3/uL (0.0-0.2) Sodium Level 139 mmol/L (136-145) Potassium Level 4.3 mmol/L (3.5-5.1) Chloride Level 107 mmol/L (98-107) Carbon Dioxide Level 22 mmol/L (21-32) Anion Gap 10 (6-14) Blood Urea Nitrogen 41 mg/dL (8-26) Creatinine 3.6 mg/dL (0.7-1.3) Estimated GFR (Cockcroft-Gault) 21.7 Glucose Level 103 mg/dL (70-99) Calcium Level 8.0 mg/dL (8.5-10.1) Review of Systems Review of Systems Sleepy but otherwise no acute ROS 14 point reviewed Assessment and Plan Assessmemt and Plan Problems Medical Problems: (1) [id number] renal failure Status: Acute (2) Intracranial hemorrhage Status: Acute Comment Review of Relevant I have reviewed the following items bibi (where applicable) has been applied. Labs Laboratory Tests Test 08/06/18 17:00 08/06/18 17:15 08/06/18 20:20 08/07/18 02:43 White Blood Count 5.5 x10^3/uL (4.0-11.0) Red Blood Count 3.17 x10^6/uL (4.30-5.70) Hemoglobin 9.3 g/dL (13.0-17.5) Hematocrit 28.4 % (39.0-53.0) Mean Corpuscular Volume 90 fL (79-100) Mean Corpuscular Hemoglobin 29 pg (25-35) Mean Corpuscular Hemoglobin Concent 33 g/dL (31-37) Red Cell Distribution Width 15.7 % (11.5-14.5) Platelet Count 220 x10^3/uL (140-400) Neutrophils (%) (Auto) 72 % (31-73) Lymphocytes (%) (Auto) 17 % (24-48) Monocytes (%) (Auto) 7 % (0-9) Eosinophils (%) (Auto) 2 % (0-3) Basophils (%) (Auto) 1 % (0-3) Neutrophils # (Auto) 4.0 x10^3uL (1.8-7.7) Lymphocytes # (Auto) 1.0 x10^3/uL (1.0-4.8) Monocytes # (Auto) 0.4 x10^3/uL (0.0-1.1) Eosinophils # (Auto) 0.1 x10^3/uL (0.0-0.7) Basophils # (Auto) 0.1 x10^3/uL (0.0-0.2) Prothrombin Time 15.2 SEC (11.7-14.0) Prothromb Time International Ratio 1.2 (0.8-1.1) Activated Partial Thromboplast Time 44 SEC (24-38) Urine Collection Type Unknown Urine Color Yellow Urine Clarity Clear Urine pH 6.5 Urine Specific Morse 1.015 Urine Protein >=300 mg/dL (NEG-TRACE) Urine Glucose (UA) 250 mg/dL (NEG) Urine Ketones (Stick) Negative mg/dL (NEG) Urine Blood Small (NEG) Urine Nitrite Negative (NEG) Urine Bilirubin Negative (NEG) Urine Urobilinogen Dipstick 0.2 mg/dL (0.2 mg/dL) Urine Leukocyte Esterase Negative (NEG) Urine RBC 11-20 /HPF (0-2) Urine WBC Occ /HPF (0-4) Urine Squamous Epithelial Cells Occ /LPF Urine Bacteria 0 /HPF (0-FEW) Sodium Level 139 mmol/L (136-145) Potassium Level 4.3 mmol/L (3.5-5.1) Chloride Level 104 mmol/L (98-107) Carbon Dioxide Level 25 mmol/L (21-32) Anion Gap 10 (6-14) 18 mmol/L (6-14) Blood Urea Nitrogen 44 mg/dL (8-26) Creatinine 3.5 mg/dL (0.7-1.3) Estimated GFR (Cockcroft-Gault) 22.4 BUN/Creatinine Ratio 13 (6-20) Glucose Level 235 mg/dL (70-99) 231 mg/dL (70-99) Glucose (Fingerstick) 231 mg/dL (70-99) 208 mg/dL (70-99) Lactic Acid Level 0.9 mmol/L (0.4-2.0) Calcium Level 8.6 mg/dL (8.5-10.1) Magnesium Level 1.9 mg/dL (1.8-2.4) Total Bilirubin 0.7 mg/dL (0.2-1.0) Aspartate Amino Transf (AST/SGOT) 15 U/L (15-37) Alanine Aminotransferase (ALT/SGPT) 22 U/L (16-63) Alkaline Phosphatase 180 U/L (46-116) Creatine Kinase 278 U/L (39-308) Creatine Kinase MB (Mass) 1.8 ng/mL (0.0-3.6) Creatine Kinase MB Relative Index 0.6 % (0-4) Troponin I Quantitative 0.477 ng/mL (0.000-0.055) BJ-Vvh-J-Type Natriuretic Peptide 10545 pg/mL (0-124) Total Protein 8.4 g/dL (6.4-8.2) Albumin 2.7 g/dL (3.4-5.0) Albumin/Globulin Ratio 0.5 (1.0-1.7) Thyroid Stimulating Hormone (TSH) 0.427 uIU/mL (0.358-3.74) Urine Opiates Screen Neg (NEG) Urine Methadone Screen Neg (NEG) Urine Barbiturates Neg (NEG) Urine Phencyclidine Screen Neg (NEG) Urine Amphetamine/Methamphetamine Neg (NEG) Urine Benzodiazepines Screen Neg (NEG) Urine Cocaine Screen Neg (NEG) Urine Cannabinoids Screen Neg (NEG) Urine Ethyl Alcohol Neg (NEG) Bedside Hemoglobin 9.5 g/dL (14-18) Bedside Hematocrit 28 % (37-52) Bedside Sodium 140 mmol/L (135-145) Bedside Potassium 4.3 mmol/L (3.5-5.0) Bedside Chloride 107 mmol/L (98-110) Bedside Total CO2 20 mmol/L (23-32) Bedside Blood Urea Nitrogen 40 mg/dL (8-26) Bedside Creatinine 3.4 mg/dL (0.5-1.4) Bedside Ionized Calcium ([place]) 1.14 mmol/L (1.13-1.32) Nasal Screen MRSA (PCR) Negative (Negative) Test 08/07/18 07:15 08/07/18 08:36 08/07/18 12:39 08/07/18 16:53 White Blood Count 4.9 x10^3/uL (4.0-11.0) Red Blood Count 2.77 x10^6/uL (4.30-5.70) Hemoglobin 8.2 g/dL (13.0-17.5) Hematocrit 24.9 % (39.0-53.0) Mean Corpuscular Volume 90 fL (79-100) Mean Corpuscular Hemoglobin 30 pg (25-35) Mean Corpuscular Hemoglobin Concent 33 g/dL (31-37) Red Cell Distribution Width 16.0 % (11.5-14.5) Platelet Count 199 x10^3/uL (140-400) Neutrophils (%) (Auto) 58 % (31-73) Lymphocytes (%) (Auto) 28 % (24-48) Monocytes (%) (Auto) 10 % (0-9) Eosinophils (%) (Auto) 3 % (0-3) Basophils (%) (Auto) 1 % (0-3) Neutrophils # (Auto) 2.8 x10^3uL (1.8-7.7) Lymphocytes # (Auto) 1.4 x10^3/uL (1.0-4.8) Monocytes # (Auto) 0.5 x10^3/uL (0.0-1.1) Eosinophils # (Auto) 0.2 x10^3/uL (0.0-0.7) Basophils # (Auto) 0.0 x10^3/uL (0.0-0.2) Sodium Level 142 mmol/L (136-145) Potassium Level 4.0 mmol/L (3.5-5.1) Chloride Level 109 mmol/L (98-107) Carbon Dioxide Level 23 mmol/L (21-32) Anion Gap 10 (6-14) Blood Urea Nitrogen 46 mg/dL (8-26) Creatinine 3.5 mg/dL (0.7-1.3) Estimated GFR (Cockcroft-Gault) 22.4 Glucose Level 88 mg/dL (70-99) Hemoglobin A1c 8.4 % (4.8-5.6) Calcium Level 8.4 mg/dL (8.5-10.1) Glucose (Fingerstick) 72 mg/dL (70-99) 55 mg/dL (70-99) 167 mg/dL (70-99) Test 08/07/18 20:40 08/08/18 04:45 Glucose (Fingerstick) 167 mg/dL (70-99) White Blood Count 4.5 x10^3/uL (4.0-11.0) Red Blood Count 3.00 x10^6/uL (4.30-5.70) Hemoglobin 8.9 g/dL (13.0-17.5) Hematocrit 26.9 % (39.0-53.0) Mean Corpuscular Volume 90 fL (79-100) Mean Corpuscular Hemoglobin 30 pg (25-35) Mean Corpuscular Hemoglobin Concent 33 g/dL (31-37) Red Cell Distribution Width 16.0 % (11.5-14.5) Platelet Count 206 x10^3/uL (140-400) Neutrophils (%) (Auto) 56 % (31-73) Lymphocytes (%) (Auto) 27 % (24-48) Monocytes (%) (Auto) 11 % (0-9) Eosinophils (%) (Auto) 5 % (0-3) Basophils (%) (Auto) 1 % (0-3) Neutrophils # (Auto) 2.5 x10^3uL (1.8-7.7) Lymphocytes # (Auto) 1.2 x10^3/uL (1.0-4.8) Monocytes # (Auto) 0.5 x10^3/uL (0.0-1.1) Eosinophils # (Auto) 0.2 x10^3/uL (0.0-0.7) Basophils # (Auto) 0.0 x10^3/uL (0.0-0.2) Sodium Level 139 mmol/L (136-145) Potassium Level 4.3 mmol/L (3.5-5.1) Chloride Level 107 mmol/L (98-107) Carbon Dioxide Level 22 mmol/L (21-32) Anion Gap 10 (6-14) Blood Urea Nitrogen 41 mg/dL (8-26) Creatinine 3.6 mg/dL (0.7-1.3) Estimated GFR (Cockcroft-Gault) 21.7 Glucose Level 103 mg/dL (70-99) Calcium Level 8.0 mg/dL (8.5-10.1) Laboratory Tests Test 08/07/18 12:39 08/07/18 16:53 08/07/18 20:40 08/08/18 04:45 Glucose (Fingerstick) 55 mg/dL (70-99) 167 mg/dL (70-99) 167 mg/dL (70-99) White Blood Count 4.5 x10^3/uL (4.0-11.0) Red Blood Count 3.00 x10^6/uL (4.30-5.70) Hemoglobin 8.9 g/dL (13.0-17.5) Hematocrit 26.9 % (39.0-53.0) Mean Corpuscular Volume 90 fL (79-100) Mean Corpuscular Hemoglobin 30 pg (25-35) Mean Corpuscular Hemoglobin Concent 33 g/dL (31-37) Red Cell Distribution Width 16.0 % (11.5-14.5) Platelet Count 206 x10^3/uL (140-400) Neutrophils (%) (Auto) 56 % (31-73) Lymphocytes (%) (Auto) 27 % (24-48) Monocytes (%) (Auto) 11 % (0-9) Eosinophils (%) (Auto) 5 % (0-3) Basophils (%) (Auto) 1 % (0-3) Neutrophils # (Auto) 2.5 x10^3uL (1.8-7.7) Lymphocytes # (Auto) 1.2 x10^3/uL (1.0-4.8) Monocytes # (Auto) 0.5 x10^3/uL (0.0-1.1) Eosinophils # (Auto) 0.2 x10^3/uL (0.0-0.7) Basophils # (Auto) 0.0 x10^3/uL (0.0-0.2) Sodium Level 139 mmol/L (136-145) Potassium Level 4.3 mmol/L (3.5-5.1) Chloride Level 107 mmol/L (98-107) Carbon Dioxide Level 22 mmol/L (21-32) Anion Gap 10 (6-14) Blood Urea Nitrogen 41 mg/dL (8-26) Creatinine 3.6 mg/dL (0.7-1.3) Estimated GFR (Cockcroft-Gault) 21.7 Glucose Level 103 mg/dL (70-99) Calcium Level 8.0 mg/dL (8.5-10.1) Microbiology 08/06/18 Blood Culture - Preliminary, Resulted NO GROWTH AFTER 1 DAY Medications Current Medications Labetalol HCl (Normodyne Iv Push) 10 mg 1X ONCE IVP Last administered on at 17:27; Start 08/06/18 at 17:15; Stop 08/06/18 at 17:16; Status DC Nicardipine HCl 50 mg/Sodium Chloride 250 ml @ 25 mls/hr CONT PRN IV SEE I/O RECORD Last administered on 08/06/18at 22:09; Start 08/06/18 at 17:30; Stop 08/07 at 16:25; Status DC Prothrombin Complex Concent (Human) 4000 unit/ Miscellaneous 160 ml @ 8.4 mls/ min 1X ONCE IV ; Start 08/06/18 at 18:30; Stop 08/06/18 at 18:49; Status Cancel Labetalol HCl (Normodyne Iv Push) 10 mg 1X ONCE IVP Last administered on at 18:30; Start 08/06/18 at 18:30; Stop 08/06/18 at 18:31; Status DC Prothrombin Complex Concent (Human) 4000 unit/ Miscellaneous 160 ml @ 8.4 mls/ min 1X ONCE IV Last administered on 08/06/18at 19:30; Start 08/06/18 at 20:30; Stop 08/06/18 at 20:49; Status DC Amlodipine Besylate (Norvasc) 10 mg DAILY PO Last administered on 08/08/18at 09: 09; Start 08/07/18 at 09:00 Atorvastatin Calcium (Lipitor) 40 mg HS PO Last administered on 08/06/18 22:06 ; Start 08/06/18 at 21:00 Carvedilol (Coreg) 12.5 mg BIDWMEALS PO Last administered on 08/08/18at 08:05; Start 08/06/18 at 21:00 Docusate Sodium (Colace) 100 mg PRN DAILY PRN PO CONSTIPATION 1ST CHOICE; Start 08/06/18 at 21:00 Acetaminophen/ Hydrocodone Bitart (Lortab 7.5/325) 1 tab PRN Q4HRS PRN PO SEVERE PAIN Last administered on 08/07/18 16:13; Start 08/06/18 at 21:00 Insulin Glargine (Lantus) 20 units HS SQ Last administered on 08/07/18 21:20; Start 08/06/18 at 21:00 Lisinopril (Prinivil) 40 mg BID PO ; Start 08/06/18 at 21:00; Stop 08/06/18 at 21:25; Status DC Hydralazine HCl (Apresoline) 50 mg BID PO Last administered on 08/08/18at 09:10 ; Start 08/06/18 at 21:00 Insulin Human Lispro (HumaLOG) 5 units TIDWMEALS SQ Last administered on 08:09; Start 08/07/18 at 08:00 Pantoprazole Sodium (Protonix) 40 mg DAILYAC PO Last administered on 08/08/18 05:42; Start 08/07/18 at 07:30 Insulin Human Lispro (HumaLOG) 0-5 UNITS TIDWMEALS SQ Last administered on 08/07 17:16; Start 08/07/18 at 08:00 Dextrose (Dextrose 50%-Water Syringe) 12.5 gm PRN Q15MIN PRN IV SEE COMMENTS; Start 08/07/18 at 06:30 Sodium Chloride 1,000 ml @ 75 mls/hr [id number] IV Last administered on at 01:49; Start 08/07/18 at 11:45 Acetaminophen (Tylenol) 500 mg PRN Q6HRS PRN PO MILD PAIN / TEMP; Start at 09:15 Acetaminophen/ Codeine Phosphate (Tylenol #3) 1 tab PRN Q6HRS PRN PO MODERATE PAIN; Start 08/08/18 at 09:15 Ondansetron HCl (Zofran) 4 mg PRN Q6HRS PRN IV NAUSEA/VOMITING; Start 08/08/18 at 09:15 Ondansetron HCl (Zofran Odt) 4 mg PRN Q6HRS PRN PO NAUSEA/VOMITING; Start 08/08 at 09:15 Labetalol HCl (Normodyne Iv Push) 10 mg PRN Q2HR PRN IVP HYPERTENSION, SEE COMMENTS; Start 08/08/18 at 09:15 Active Scripts Active Ferrous Sulfate 325 Mg Tablet 1 Tab PO DAILY Levaquin (Levofloxacin) 500 Mg Tablet 500 Mg PO DAILY06 10 Days Reported Lantus Solostar (Insulin Glargine,Hum.rec.anlog) 100 Unit/1 Ml Insuln.pen 20 Unit SQ HS Hydralazine Hcl 50 Mg Tablet 50 Mg PO BID Amlodipine Besylate 10 Mg Tablet 10 Mg PO DAILY Lisinopril 40 Mg Tablet 40 Mg PO BID Atorvastatin Calcium 40 Mg Tablet 40 Mg PO HS Aspirin 81 Mg Tab.chew 81 Mg PO DAILY Humalog Kwikpen (Insulin Lispro) 200 Unit/1 Ml Insuln.pen 5 Unit SQ TIDWMEALS Tramadol Hcl 50 Mg Tablet 2 Tab PO PRN Q6HRS Protonix (Pantoprazole Sodium) 20 Mg Tablet.dr 2 Tab PO DAILY Docusate Sodium 100 Mg Capsule 1 Cap PO PRN DAILY PRN Carvedilol (Carvedilol) 12.5 Mg Tablet 1 Tab PO BID Eliquis (Apixaban) 5 Mg Tab.ds.pk 5 Mg PO BID Hydrocodone-Apap 7.5-325 (Hydrocodone Bit/Acetaminophen) 1 Each Tablet 1 Tab PO PRN Q4HRS PRN Vitals/I & O Vital Sign - Last 24 Hours 08/07/18 08/07/18 08/07/18 08/07/18 10:58 11:07 11:58 12:00 Temp 97.7 97.7 Pulse 79 Resp 12 12 B/P (MAP) 152/80 (104) Pulse Ox 100 100 100 O2 Delivery Room Air Room Air Room Air O2 Flow Rate 98.0 08/07/18 08/07/18 08/07/18 08/07/18 12:00 13:00 14:11 16:13 Pulse 78 78 78 Resp 10 12 12 B/P (MAP) 157/81 (106) 174/85 (114) 149/77 (101) Pulse Ox 100 100 97 97 O2 Delivery Room Air Room Air Room Air Room Air O2 Flow Rate 98.0 08/07/18 08/07/18 08/07/18 08/07/18 16:30 16:30 17:13 17:30 Temp 98.1 98.1 Pulse 81 81 Resp 16 16 B/P (MAP) 174/84 (114) 174/84 Pulse Ox 97 O2 Delivery Room Air Nasal Cannula Room Air 08/07/18 08/07/18 08/07/18 08/07/18 19:00 20:05 21:11 23:04 Temp 98.4 98.2 98.4 98.2 Pulse 78 78 69 Resp 18 18 B/P (MAP) 149/85 (106) 149/85 146/86 (106) Pulse Ox 98 98 O2 Delivery Room Air Room Air Room Air 08/08/18 08/08/18 08/08/18 08/08/18 03:00 07:00 08:05 09:09 Temp 98.1 97.9 98.1 97.9 Pulse 80 76 76 76 Resp 18 16 B/P (MAP) 158/87 (110) 155/82 (106) 155/82 155/82 Pulse Ox 99 96 O2 Delivery Room Air Room Air 08/08/18 09:10 Pulse 76 B/P (MAP) 155/82 Intake and Output 08/07/18 08/07/18 08/08/18 14:59 22:59 06:59 Intake Total 1230 ml 350 ml 900 ml Output Total 500 ml 150 ml Balance 730 ml 200 ml 900 ml CELY BLACKWELL MD Aug 08, 2018 10:43
--- NOTE | 2018-08-08 10:50 | PDOC ---
Renal-Progress Notes Subjective Notes Notes NOTHING NEW History of Present Illness Hx of present illness NO CHANGE Vitals Vitals Vital Signs Date Time Temp Pulse Resp B/P (MAP) Pulse Ox O2 Delivery O2 Flow Rate FiO2 08/08/18 09:10 76 155/82 08/08/18 07:45 Room Air 08/08/18 07:00 97.9 16 96 97.9 08/07/18 16:13 98.0 Weight Weight [ ] I.O. Intake and Output Intake and Output 08/08/18 06:59 Intake Total 2480 ml Output Total 650 ml Balance 1830 ml Intake Oral 2230 ml IV Total 250 ml Output Urine Total 650 ml # Voids 4 Labs Labs Laboratory Tests Test 08/07/18 12:39 08/07/18 16:53 08/07/18 20:40 08/08/18 04:45 Glucose (Fingerstick) 55 mg/dL (70-99) 167 mg/dL (70-99) 167 mg/dL (70-99) White Blood Count 4.5 x10^3/uL (4.0-11.0) Red Blood Count 3.00 x10^6/uL (4.30-5.70) Hemoglobin 8.9 g/dL (13.0-17.5) Hematocrit 26.9 % (39.0-53.0) Mean Corpuscular Volume 90 fL (79-100) Mean Corpuscular Hemoglobin 30 pg (25-35) Mean Corpuscular Hemoglobin Concent 33 g/dL (31-37) Red Cell Distribution Width 16.0 % (11.5-14.5) Platelet Count 206 x10^3/uL (140-400) Neutrophils (%) (Auto) 56 % (31-73) Lymphocytes (%) (Auto) 27 % (24-48) Monocytes (%) (Auto) 11 % (0-9) Eosinophils (%) (Auto) 5 % (0-3) Basophils (%) (Auto) 1 % (0-3) Neutrophils # (Auto) 2.5 x10^3uL (1.8-7.7) Lymphocytes # (Auto) 1.2 x10^3/uL (1.0-4.8) Monocytes # (Auto) 0.5 x10^3/uL (0.0-1.1) Eosinophils # (Auto) 0.2 x10^3/uL (0.0-0.7) Basophils # (Auto) 0.0 x10^3/uL (0.0-0.2) Sodium Level 139 mmol/L (136-145) Potassium Level 4.3 mmol/L (3.5-5.1) Chloride Level 107 mmol/L (98-107) Carbon Dioxide Level 22 mmol/L (21-32) Anion Gap 10 (6-14) Blood Urea Nitrogen 41 mg/dL (8-26) Creatinine 3.6 mg/dL (0.7-1.3) Estimated GFR (Cockcroft-Gault) 21.7 Glucose Level 103 mg/dL (70-99) Calcium Level 8.0 mg/dL (8.5-10.1) Micro Micro Microbiology 08/06/18 Blood Culture - Preliminary, Resulted NO GROWTH AFTER 1 DAY Physical Exam Musculoskeletal: Osteoarthritis, Other Assessment Assessment IMP ICB CVA HTN DM I CKD STAGE 3-CR OF 2.0 TAD-CR OF 3.6 MAY BE NEW BASELINE ANEMIA OF CHRONIC DZ PLAN RENAL SONO NEG HYDRATION ENC COMPLIANCE CONTROL BP CONTROL BG START NEFTALI-I TRIAL NEURO/NS EVAL HAVE ASKED THEM TO F/U IN OFFICE HE HAS NOT SEEN ANY DOCTORS IN YEARS LUIS SAVAGE MD Aug 08, 2018 10:50
[2018-08-08 11:00] VITALS: BP 144/71
[2018-08-08] MEDS: LISINOPRIL 10 MG TABLET PO SCH (11:47)
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
[2018-08-08 14:56] VITALS: BP 153/79
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
[2018-08-08 19:00] VITALS: BP 142/72
[2018-08-08] MEDS: ATORVASTATIN CALCIUM 40 MG TABLET. PO SCH (20:25)
[2018-08-08] MEDS: INSULIN GLARGINE 300 UNITS/3 ML INSULN.PEN. SQ SCH (20:35)
[2018-08-08 23:04] VITALS: BP 143/70
[2018-08-09 03:00] VITALS: BP 147/70
[2018-08-09 06:53] LABS: CALCIUM 8.2 mg/dL (8.5-10.1); CREATININE 3.7 mg/dL (0.7-1.3); POTASSIUM 4.4 mmol/L (3.5-5.1)
[2018-08-09 07:00] VITALS: BP 148/71
[2018-08-09] MEDS: INSULIN LISPRO 300 UNITS/3 ML INSULN.PEN. SQ SCH ×6 (08:00→17:20)
[2018-08-09] MEDS: LISINOPRIL 10 MG TABLET PO SCH (09:00)
--- NOTE | 2018-08-09 10:36 | PDOC ---
PROGRESS NOTES Chief Complaint Chief Complaint Stable basal ganglia hemorrhage, films 08/07/18 Intracranial hemorrhage, acute Headaches, MILD Facial droop with accelerated hypertension Accel hypertension, uncontrolled, noncompliance, no PCP AK I on CK D secondary to long-standing hypertension History of Present Illness History of Present Illness DOesnt talk much. ATe breakfast all MOther at bedside Pt denies headaches Transferred out of ICU fro ICH Stable brain bleed as per recent films BP 140s sytoolic Sonogram supports medical renal disease CREat not improving 3,7 from 3.6 from 3.5 Good uO though PT recs [facility] - updated mom - agreeable PLAN: Saturday for [facility] referral AVoid nephrotoxins BMP daily MONitor closely neurostatus - rescan if any worsening Neuro checks frequently, watch out for further somnolence might need to rescan but so far stable bleed No blood thinners, ASA< NSAIDs pls bec of ICH Continue to control blood pressure, no blood pressure greater than 160 systolic NOt ready for dc, creat worse Vitals Vitals Vital Signs Date Time Temp Pulse Resp B/P (MAP) Pulse Ox O2 Delivery O2 Flow Rate FiO2 08/09/18 07:00 98.2 86 18 148/71 (96) 97 Room Air 98.2 Physical Exam General: Cooperative, No acute distress Heart: Regular rate, Normal S1, Other (irrr) Lungs: Clear Abdomen: Normal bowel sounds, Soft, No tenderness Extremities: No clubbing, No cyanosis, Normal pulses Skin: No breakdown Labs LABS Laboratory Tests Test 08/08/18 11:29 08/08/18 17:10 08/08/18 20:10 08/09/18 06:00 Glucose (Fingerstick) 132 mg/dL (70-99) 179 mg/dL (70-99) 142 mg/dL (70-99) Sodium Level 139 mmol/L (136-145) Potassium Level 4.4 mmol/L (3.5-5.1) Chloride Level 107 mmol/L (98-107) Carbon Dioxide Level 21 mmol/L (21-32) Anion Gap 11 (6-14) Blood Urea Nitrogen 38 mg/dL (8-26) Creatinine 3.7 mg/dL (0.7-1.3) Estimated GFR (Cockcroft-Gault) 21.0 Glucose Level 99 mg/dL (70-99) Calcium Level 8.2 mg/dL (8.5-10.1) Test 08/09/18 07:27 Glucose (Fingerstick) 77 mg/dL (70-99) Review of Systems Review of Systems MInimally cooperative Assessment and Plan Assessmemt and Plan Problems Medical Problems: (1) [id number] renal failure Status: Acute (2) Intracranial hemorrhage Status: Acute Comment Review of Relevant I have reviewed the following items bibi (where applicable) has been applied. Labs Laboratory Tests Test 08/07/18 12:39 08/07/18 16:53 08/07/18 20:40 08/08/18 04:45 Glucose (Fingerstick) 55 mg/dL (70-99) 167 mg/dL (70-99) 167 mg/dL (70-99) White Blood Count 4.5 x10^3/uL (4.0-11.0) Red Blood Count 3.00 x10^6/uL (4.30-5.70) Hemoglobin 8.9 g/dL (13.0-17.5) Hematocrit 26.9 % (39.0-53.0) Mean Corpuscular Volume 90 fL (79-100) Mean Corpuscular Hemoglobin 30 pg (25-35) Mean Corpuscular Hemoglobin Concent 33 g/dL (31-37) Red Cell Distribution Width 16.0 % (11.5-14.5) Platelet Count 206 x10^3/uL (140-400) Neutrophils (%) (Auto) 56 % (31-73) Lymphocytes (%) (Auto) 27 % (24-48) Monocytes (%) (Auto) 11 % (0-9) Eosinophils (%) (Auto) 5 % (0-3) Basophils (%) (Auto) 1 % (0-3) Neutrophils # (Auto) 2.5 x10^3uL (1.8-7.7) Lymphocytes # (Auto) 1.2 x10^3/uL (1.0-4.8) Monocytes # (Auto) 0.5 x10^3/uL (0.0-1.1) Eosinophils # (Auto) 0.2 x10^3/uL (0.0-0.7) Basophils # (Auto) 0.0 x10^3/uL (0.0-0.2) Sodium Level 139 mmol/L (136-145) Potassium Level 4.3 mmol/L (3.5-5.1) Chloride Level 107 mmol/L (98-107) Carbon Dioxide Level 22 mmol/L (21-32) Anion Gap 10 (6-14) Blood Urea Nitrogen 41 mg/dL (8-26) Creatinine 3.6 mg/dL (0.7-1.3) Estimated GFR (Cockcroft-Gault) 21.7 Glucose Level 103 mg/dL (70-99) Calcium Level 8.0 mg/dL (8.5-10.1) Test 08/08/18 07:21 08/08/18 11:29 08/08/18 17:10 08/08/18 20:10 Glucose (Fingerstick) 63 mg/dL (70-99) 132 mg/dL (70-99) 179 mg/dL (70-99) 142 mg/dL (70-99) Test 08/09/18 06:00 08/09/18 07:27 Sodium Level 139 mmol/L (136-145) Potassium Level 4.4 mmol/L (3.5-5.1) Chloride Level 107 mmol/L (98-107) Carbon Dioxide Level 21 mmol/L (21-32) Anion Gap 11 (6-14) Blood Urea Nitrogen 38 mg/dL (8-26) Creatinine 3.7 mg/dL (0.7-1.3) Estimated GFR (Cockcroft-Gault) 21.0 Glucose Level 99 mg/dL (70-99) Calcium Level 8.2 mg/dL (8.5-10.1) Glucose (Fingerstick) 77 mg/dL (70-99) Laboratory Tests Test 08/08/18 11:29 08/08/18 17:10 08/08/18 20:10 08/09/18 06:00 Glucose (Fingerstick) 132 mg/dL (70-99) 179 mg/dL (70-99) 142 mg/dL (70-99) Sodium Level 139 mmol/L (136-145) Potassium Level 4.4 mmol/L (3.5-5.1) Chloride Level 107 mmol/L (98-107) Carbon Dioxide Level 21 mmol/L (21-32) Anion Gap 11 (6-14) Blood Urea Nitrogen 38 mg/dL (8-26) Creatinine 3.7 mg/dL (0.7-1.3) Estimated GFR (Cockcroft-Gault) 21.0 Glucose Level 99 mg/dL (70-99) Calcium Level 8.2 mg/dL (8.5-10.1) Test 08/09/18 07:27 Glucose (Fingerstick) 77 mg/dL (70-99) Microbiology 08/06/18 Blood Culture - Preliminary, Resulted NO GROWTH AFTER 2 DAYS Medications Current Medications Labetalol HCl (Normodyne Iv Push) 10 mg 1X ONCE IVP Last administered on 17:27; Start 08/06/18 at 17:15; Stop 08/06/18 at 17:16; Status DC Nicardipine HCl 50 mg/Sodium Chloride 250 ml @ 25 mls/hr CONT PRN IV SEE I/O RECORD Last administered on 08/06/18at 22:09; Start 08/06/18 at 17:30; Stop 08/07 at 16:25; Status DC Prothrombin Complex Concent (Human) 4000 unit/ Miscellaneous 160 ml @ 8.4 mls/ min 1X ONCE IV ; Start 08/06/18 at 18:30; Stop 08/06/18 at 18:49; Status Cancel Labetalol HCl (Normodyne Iv Push) 10 mg 1X ONCE IVP Last administered on at 18:30; Start 08/06/18 at 18:30; Stop 08/06/18 at 18:31; Status DC Prothrombin Complex Concent (Human) 4000 unit/ Miscellaneous 160 ml @ 8.4 mls/ min 1X ONCE IV Last administered on 08/06/18 19:30; Start 08/06/18 at 20:30; Stop 08/06/18 at 20:49; Status DC Amlodipine Besylate (Norvasc) 10 mg DAILY PO Last administered on 08/08/18 09: 09; Start 08/07/18 at 09:00 Atorvastatin Calcium (Lipitor) 40 mg HS PO Last administered on 08/08/18 20:25 ; Start 08/06/18 at 21:00 Carvedilol (Coreg) 12.5 mg BIDWMEALS PO Last administered on 08/08/18at 17:12; Start 08/06/18 at 21:00 Docusate Sodium (Colace) 100 mg PRN DAILY PRN PO CONSTIPATION 1ST CHOICE; Start 08/06/18 at 21:00 Acetaminophen/ Hydrocodone Bitart (Lortab 7.5/325) 1 tab PRN Q4HRS PRN PO SEVERE PAIN Last administered on 08/07/18at 16:13; Start 08/06/18 at 21:00 Insulin Glargine (Lantus) 20 units HS SQ Last administered on 08/08/18at 20:35; Start 08/06/18 at 21:00 Lisinopril (Prinivil) 40 mg BID PO ; Start 08/06/18 at 21:00; Stop 08/06/18 at 21:25; Status DC Hydralazine HCl (Apresoline) 50 mg BID PO Last administered on 08/08/18at 20:26 ; Start 08/06/18 at 21:00 Insulin Human Lispro (HumaLOG) 5 units TIDWMEALS SQ Last administered on at 17:19; Start 08/07/18 at 08:00 Pantoprazole Sodium (Protonix) 40 mg DAILYAC PO Last administered on 08/08/18at 05:42; Start 08/07/18 at 07:30 Insulin Human Lispro (HumaLOG) 0-5 UNITS TIDWMEALS SQ Last administered on 08/08at 17:20; Start 08/07/18 at 08:00 Dextrose (Dextrose 50%-Water Syringe) 12.5 gm PRN Q15MIN PRN IV SEE COMMENTS; Start 08/07/18 at 06:30 Sodium Chloride 1,000 ml @ 75 mls/hr [id number] IV Last administered on at 01:49; Start 08/07/18 at 11:45; Stop 08/08/18 at 16:27; Status DC Acetaminophen (Tylenol) 500 mg PRN Q6HRS PRN PO MILD PAIN / TEMP; Start at 09:15 Acetaminophen/ Codeine Phosphate (Tylenol #3) 1 tab PRN Q6HRS PRN PO MODERATE PAIN; Start 08/08/18 at 09:15 Ondansetron HCl (Zofran) 4 mg PRN Q6HRS PRN IV NAUSEA/VOMITING; Start 08/08/18 at 09:15 Ondansetron HCl (Zofran Odt) 4 mg PRN Q6HRS PRN PO NAUSEA/VOMITING; Start 08/08 at 09:15 Labetalol HCl (Normodyne Iv Push) 10 mg PRN Q2HR PRN IVP HYPERTENSION, SEE COMMENTS; Start 08/08/18 at 09:15 Lisinopril (Prinivil) 10 mg DAILY PO Last administered on 08/08/18at 11:47; Start 08/08/18 at 11:00 Active Scripts Active Ferrous Sulfate 325 Mg Tablet 1 Tab PO DAILY Levaquin (Levofloxacin) 500 Mg Tablet 500 Mg PO DAILY06 10 Days Reported Lantus Solostar (Insulin Glargine,Hum.rec.anlog) 100 Unit/1 Ml Insuln.pen 20 Unit SQ HS Hydralazine Hcl 50 Mg Tablet 50 Mg PO BID Amlodipine Besylate 10 Mg Tablet 10 Mg PO DAILY Lisinopril 40 Mg Tablet 40 Mg PO BID Atorvastatin Calcium 40 Mg Tablet 40 Mg PO HS Aspirin 81 Mg Tab.chew 81 Mg PO DAILY Humalog Kwikpen (Insulin Lispro) 200 Unit/1 Ml Insuln.pen 5 Unit SQ TIDWMEALS Tramadol Hcl 50 Mg Tablet 2 Tab PO PRN Q6HRS Protonix (Pantoprazole Sodium) 20 Mg Tablet.dr 2 Tab PO DAILY Docusate Sodium 100 Mg Capsule 1 Cap PO PRN DAILY PRN Carvedilol (Carvedilol) 12.5 Mg Tablet 1 Tab PO BID Eliquis (Apixaban) 5 Mg Tab.ds.pk 5 Mg PO BID Hydrocodone-Apap 7.5-325 (Hydrocodone Bit/Acetaminophen) 1 Each Tablet 1 Tab PO PRN Q4HRS PRN Vitals/I & O Vital Sign - Last 24 Hours 08/08/18 08/08/18 08/08/18 08/08/18 11:00 11:47 14:56 17:12 Temp 97.7 97.7 Pulse 69 68 74 74 Resp 18 18 B/P (MAP) 144/71 (95) 144/71 153/79 (103) 153/79 Pulse Ox 99 100 O2 Delivery Room Air Room Air 08/08/18 08/08/18 08/08/18 08/08/18 19:00 20:10 20:26 23:04 Temp 98.6 98.3 98.6 98.3 Pulse 83 83 81 Resp 18 16 B/P (MAP) 142/72 (95) 142/77 143/70 (94) Pulse Ox 97 97 O2 Delivery Room Air Room Air Room Air 08/09/18 08/09/18 03:00 07:00 Temp 98.6 98.2 98.6 98.2 Pulse 84 86 Resp 18 18 B/P (MAP) 147/70 (95) 148/71 (96) Pulse Ox 97 97 O2 Delivery Room Air Room Air Intake and Output 08/08/18 08/08/18 08/09/18 15:00 23:00 07:00 Output Total 300 ml Balance -300 ml CELY BLACKWELL MD Aug 09, 2018 10:35
[2018-08-09] MEDS: PANTOPRAZOLE 40 MG TABLET.DR. PO SCH (10:41)
[2018-08-09] MEDS: CARVEDILOL 12.5 MG TABLET. PO SCH ×2 (10:42→17:10)
[2018-08-09] MEDS: amLODIPine BESYLATE 10 MG TABLET PO SCH (10:44)
[2018-08-09 11:00] VITALS: BP 149/76
--- NOTE | 2018-08-09 11:19 | PDOC ---
Renal-Progress Notes Subjective Notes Notes FEELING BETTER History of Present Illness Hx of present illness IMPROVED Vitals Vitals Vital Signs Date Time Temp Pulse Resp B/P (MAP) Pulse Ox O2 Delivery O2 Flow Rate FiO2 08/09/18 10:44 86 148/71 08/09/18 07:00 98.2 18 97 Room Air 98.2 Weight Weight [ ] I.O. Intake and Output Intake and Output 08/09/18 07:00 Output Total 300 ml Balance -300 ml Output Urine Total 300 ml # Voids 3 Labs Labs Laboratory Tests Test 08/08/18 11:29 08/08/18 17:10 08/08/18 20:10 08/09/18 06:00 Glucose (Fingerstick) 132 mg/dL (70-99) 179 mg/dL (70-99) 142 mg/dL (70-99) Sodium Level 139 mmol/L (136-145) Potassium Level 4.4 mmol/L (3.5-5.1) Chloride Level 107 mmol/L (98-107) Carbon Dioxide Level 21 mmol/L (21-32) Anion Gap 11 (6-14) Blood Urea Nitrogen 38 mg/dL (8-26) Creatinine 3.7 mg/dL (0.7-1.3) Estimated GFR (Cockcroft-Gault) 21.0 Glucose Level 99 mg/dL (70-99) Calcium Level 8.2 mg/dL (8.5-10.1) Test 08/09/18 07:27 Glucose (Fingerstick) 77 mg/dL (70-99) Micro Micro Microbiology 08/06/18 Blood Culture - Preliminary, Resulted NO GROWTH AFTER 2 DAYS Physical Exam Musculoskeletal: Osteoarthritis, Other Assessment Assessment IMP ICB CVA HTN DM I CKD STAGE 3-CR OF 2.0 TAD-CR OF 3.7 MAY BE NEW BASELINE ANEMIA OF CHRONIC DZ PLAN RENAL SONO NEG HYDRATION ENC COMPLIANCE CONTROL BP CONTROL BG CONT NEFTALI-I TRIAL NEURO/NS EVAL HAVE ASKED THEM TO F/U IN OFFICE HE HAS NOT SEEN ANY DOCTORS IN YEARS UPDATED MOTHER AT BEDSIDE NEEDS THERAPY LUIS SAVAGE MD Aug 09, 2018 11:19
[2018-08-09 15:00] VITALS: BP 149/76
[2018-08-09 19:00] VITALS: BP 138/72
[2018-08-09] MEDS: ATORVASTATIN CALCIUM 40 MG TABLET. PO SCH (21:13)
[2018-08-09] MEDS: INSULIN GLARGINE 300 UNITS/3 ML INSULN.PEN. SQ SCH (21:19)
[2018-08-09 23:11] VITALS: BP 116/74
[2018-08-10 03:00] VITALS: BP 141/75
[2018-08-10 05:08] LABS: CALCIUM 8.4 mg/dL (8.5-10.1); CREATININE 3.6 mg/dL (0.7-1.3); GFR 21.7; POTASSIUM 4.4 mmol/L (3.5-5.1)
[2018-08-10] MEDS: PANTOPRAZOLE 40 MG TABLET.DR. PO SCH (06:03)
[2018-08-10 07:00] VITALS: BP 136/73
[2018-08-10] MEDS: INSULIN LISPRO 300 UNITS/3 ML INSULN.PEN. SQ SCH ×6 (07:53→16:39)
[2018-08-10] MEDS: amLODIPine BESYLATE 10 MG TABLET PO SCH (09:33)
[2018-08-10] MEDS: LISINOPRIL 10 MG TABLET PO SCH (09:34)
[2018-08-10] MEDS: CARVEDILOL 12.5 MG TABLET. PO SCH ×2 (09:34→16:34)
[2018-08-10 11:00] VITALS: BP 139/72
--- NOTE | 2018-08-10 11:17 | PDOC ---
Renal-Progress Notes Subjective Notes Notes NONE History of Present Illness Hx of present illness STABLE Vitals Vitals Vital Signs Date Time Temp Pulse Resp B/P (MAP) Pulse Ox O2 Delivery O2 Flow Rate FiO2 08/10/18 09:34 72 136/73 08/10/18 07:00 98.4 16 98 Room Air 98.4 Weight Weight [ ] I.O. Intake and Output Intake and Output 08/10/18 07:00 Intake Total 120 ml Balance 120 ml Intake Oral 120 ml # Voids 5 Labs Labs Laboratory Tests Test 08/09/18 16:43 08/09/18 20:30 08/10/18 04:35 Glucose (Fingerstick) 193 mg/dL (70-99) 129 mg/dL (70-99) Sodium Level 136 mmol/L (136-145) Potassium Level 4.4 mmol/L (3.5-5.1) Chloride Level 105 mmol/L (98-107) Carbon Dioxide Level 22 mmol/L (21-32) Anion Gap 9 (6-14) Blood Urea Nitrogen 39 mg/dL (8-26) Creatinine 3.6 mg/dL (0.7-1.3) Estimated GFR (Cockcroft-Gault) 21.7 Glucose Level 105 mg/dL (70-99) Calcium Level 8.4 mg/dL (8.5-10.1) Micro Micro Microbiology 08/06/18 Blood Culture - Preliminary, Resulted NO GROWTH AFTER 3 DAYS Physical Exam Musculoskeletal: Osteoarthritis, Other Assessment Assessment IMP ICB CVA HTN DM I CKD STAGE 3-CR OF 2.0 TAD-CR OF 3.7 MAY BE NEW BASELINE ANEMIA OF CHRONIC DZ PLAN RENAL SONO NEG OFF IVF'S ENC COMPLIANCE CONTROL BP CONTROL BG CONT NEFTALI-I NEURO/NS EVAL HAVE ASKED THEM TO F/U IN OFFICE HE HAS NOT SEEN ANY DOCTORS IN YEARS UPDATED MOTHER AT BEDSIDE NEEDS THERAPY TO LUIS DOTSON MD Aug 10, 2018 11:17
--- NOTE | 2018-08-10 12:01 | PDOC ---
PROGRESS NOTES Chief Complaint Chief Complaint Stable basal ganglia hemorrhage, films 08/07/18 Intracranial hemorrhage, acute Headaches, MILD Facial droop with accelerated hypertension Accel hypertension, uncontrolled, noncompliance, no PCP AK I on CK D secondary to long-standing hypertension History of Present Illness History of Present Illness DOesnt talk much. ATe breakfast all MOther at bedside Pt denies headaches Transferred out of ICU fro ICH Stable brain bleed as per recent films BP 130s, better Sonogram supports medical renal disease CREat stable at 3.6 - ok for OP ff up with renal Good uO, K and bicarb ok PT recs [facility] - updated mom - agreeable - waiting for Saturday PLAN: Saturday for [facility] referral AVoid nephrotoxins Cleared from renal to go home WITH FF UP [facility] DC CT scan plain tmr - If ok then [facility] tmr - dw mom Vitals Vitals Vital Signs Date Time Temp Pulse Resp B/P (MAP) Pulse Ox O2 Delivery O2 Flow Rate FiO2 08/10/18 11:00 98.4 81 16 139/72 (94) 96 Room Air 98.4 Physical Exam General: Cooperative, No acute distress Heart: Regular rate, Normal S1, Other (irrr) Lungs: Clear Abdomen: Normal bowel sounds, Soft, No tenderness Extremities: No clubbing, No cyanosis, Normal pulses Skin: No breakdown Labs LABS Laboratory Tests Test 08/09/18 16:43 08/09/18 20:30 08/10/18 04:35 Glucose (Fingerstick) 193 mg/dL (70-99) 129 mg/dL (70-99) Sodium Level 136 mmol/L (136-145) Potassium Level 4.4 mmol/L (3.5-5.1) Chloride Level 105 mmol/L (98-107) Carbon Dioxide Level 22 mmol/L (21-32) Anion Gap 9 (6-14) Blood Urea Nitrogen 39 mg/dL (8-26) Creatinine 3.6 mg/dL (0.7-1.3) Estimated GFR (Cockcroft-Gault) 21.7 Glucose Level 105 mg/dL (70-99) Calcium Level 8.4 mg/dL (8.5-10.1) Review of Systems Review of Systems A 14 point ROS was completed with the following noted as positive: Other systems reviewed and negative. \CONSTITUTIONAL: No fever or chills EYES: No recent changes SKIN: No rash or itching CARDIOVASCULAR: No chest pain, syncope, palpitations, or edema RESPIRATORY: No SOB or cough GASTROINTESTINAL: No nausea, vomiting or abdominal pain NEUROLOGICAL: No headaches or weakness ENDOCRINE: No cold or heat intolerance GENITOURINARY: No urgency or frequency of urination MUSCULOSKELETAL: No back pain or joint pain LYMPHATICS: No enlarged lymph nodes PSYCHIATRIC: No anxiety or depression Assessment and Plan Assessmemt and Plan Problems Medical Problems: (1) [id number] renal failure Status: Acute (2) Intracranial hemorrhage Status: Acute Comment Review of Relevant I have reviewed the following items bibi (where applicable) has been applied. Labs Laboratory Tests Test 08/08/18 17:10 08/08/18 20:10 08/09/18 06:00 08/09/18 07:27 Glucose (Fingerstick) 179 mg/dL (70-99) 142 mg/dL (70-99) 77 mg/dL (70-99) Sodium Level 139 mmol/L (136-145) Potassium Level 4.4 mmol/L (3.5-5.1) Chloride Level 107 mmol/L (98-107) Carbon Dioxide Level 21 mmol/L (21-32) Anion Gap 11 (6-14) Blood Urea Nitrogen 38 mg/dL (8-26) Creatinine 3.7 mg/dL (0.7-1.3) Estimated GFR (Cockcroft-Gault) 21.0 Glucose Level 99 mg/dL (70-99) Calcium Level 8.2 mg/dL (8.5-10.1) Test 08/09/18 11:00 08/09/18 16:43 08/09/18 20:30 08/10/18 04:35 Glucose (Fingerstick) 111 mg/dL (70-99) 193 mg/dL (70-99) 129 mg/dL (70-99) Sodium Level 136 mmol/L (136-145) Potassium Level 4.4 mmol/L (3.5-5.1) Chloride Level 105 mmol/L (98-107) Carbon Dioxide Level 22 mmol/L (21-32) Anion Gap 9 (6-14) Blood Urea Nitrogen 39 mg/dL (8-26) Creatinine 3.6 mg/dL (0.7-1.3) Estimated GFR (Cockcroft-Gault) 21.7 Glucose Level 105 mg/dL (70-99) Calcium Level 8.4 mg/dL (8.5-10.1) Laboratory Tests Test 08/09/18 16:43 08/09/18 20:30 08/10/18 04:35 Glucose (Fingerstick) 193 mg/dL (70-99) 129 mg/dL (70-99) Sodium Level 136 mmol/L (136-145) Potassium Level 4.4 mmol/L (3.5-5.1) Chloride Level 105 mmol/L (98-107) Carbon Dioxide Level 22 mmol/L (21-32) Anion Gap 9 (6-14) Blood Urea Nitrogen 39 mg/dL (8-26) Creatinine 3.6 mg/dL (0.7-1.3) Estimated GFR (Cockcroft-Gault) 21.7 Glucose Level 105 mg/dL (70-99) Calcium Level 8.4 mg/dL (8.5-10.1) Microbiology 08/06/18 Blood Culture - Preliminary, Resulted NO GROWTH AFTER 3 DAYS Medications Current Medications Labetalol HCl (Normodyne Iv Push) 10 mg 1X ONCE IVP Last administered on at 17:27; Start 08/06/18 at 17:15; Stop 08/06/18 at 17:16; Status DC Nicardipine HCl 50 mg/Sodium Chloride 250 ml @ 25 mls/hr CONT PRN IV SEE I/O RECORD Last administered on 08/06/18at 22:09; Start 08/06/18 at 17:30; Stop 08/07 at 16:25; Status DC Prothrombin Complex Concent (Human) 4000 unit/ Miscellaneous 160 ml @ 8.4 mls/ min 1X ONCE IV ; Start 08/06/18 at 18:30; Stop 08/06/18 at 18:49; Status Cancel Labetalol HCl (Normodyne Iv Push) 10 mg 1X ONCE IVP Last administered on at 18:30; Start 08/06/18 at 18:30; Stop 08/06/18 at 18:31; Status DC Prothrombin Complex Concent (Human) 4000 unit/ Miscellaneous 160 ml @ 8.4 mls/ min 1X ONCE IV Last administered on 08/06/18at 19:30; Start 08/06/18 at 20:30; Stop 08/06/18 at 20:49; Status DC Amlodipine Besylate (Norvasc) 10 mg DAILY PO Last administered on 08/10/18 09: 33; Start 08/07/18 at 09:00 Atorvastatin Calcium (Lipitor) 40 mg HS PO Last administered on 08/09/18 21:13 ; Start 08/06/18 at 21:00 Carvedilol (Coreg) 12.5 mg BIDWMEALS PO Last administered on 08/10/18 09:34; Start 08/06/18 at 21:00 Docusate Sodium (Colace) 100 mg PRN DAILY PRN PO CONSTIPATION 1ST CHOICE; Start 08/06/18 at 21:00 Acetaminophen/ Hydrocodone Bitart (Lortab 7.5/325) 1 tab PRN Q4HRS PRN PO SEVERE PAIN Last administered on 08/07/18 16:13; Start 08/06/18 at 21:00 Insulin Glargine (Lantus) 20 units HS SQ Last administered on 08/09/18 21:19; Start 08/06/18 at 21:00 Lisinopril (Prinivil) 40 mg BID PO ; Start 08/06/18 at 21:00; Stop 08/06/18 at 21:25; Status DC Hydralazine HCl (Apresoline) 50 mg BID PO Last administered on 08/10/18 09:34 ; Start 08/06/18 at 21:00 Insulin Human Lispro (HumaLOG) 5 units TIDWMEALS SQ Last administered on 11:49; Start 08/07/18 at 08:00 Pantoprazole Sodium (Protonix) 40 mg DAILYAC PO Last administered on 08/10/18 06:03; Start 08/07/18 at 07:30 Insulin Human Lispro (HumaLOG) 0-5 UNITS TIDWMEALS SQ Last administered on 08/10 11:50; Start 08/07/18 at 08:00 Dextrose (Dextrose 50%-Water Syringe) 12.5 gm PRN Q15MIN PRN IV SEE COMMENTS; Start 08/07/18 at 06:30 Sodium Chloride 1,000 ml @ 75 mls/hr [id number] IV Last administered on at 01:49; Start 08/07/18 at 11:45; Stop 08/08/18 at 16:27; Status DC Acetaminophen (Tylenol) 500 mg PRN Q6HRS PRN PO MILD PAIN / TEMP Last administered on 08/09/18at 21:40; Start 08/08/18 at 09:15 Acetaminophen/ Codeine Phosphate (Tylenol #3) 1 tab PRN Q6HRS PRN PO MODERATE PAIN; Start 08/08/18 at 09:15 Ondansetron HCl (Zofran) 4 mg PRN Q6HRS PRN IV NAUSEA/VOMITING; Start 08/08/18 at 09:15 Ondansetron HCl (Zofran Odt) 4 mg PRN Q6HRS PRN PO NAUSEA/VOMITING; Start 08/08 at 09:15 Labetalol HCl (Normodyne Iv Push) 10 mg PRN Q2HR PRN IVP HYPERTENSION, SEE COMMENTS; Start 08/08/18 at 09:15 Lisinopril (Prinivil) 10 mg DAILY PO Last administered on 08/10/18at 09:34; Start 08/08/18 at 11:00 Active Scripts Active Ferrous Sulfate 325 Mg Tablet 1 Tab PO DAILY Levaquin (Levofloxacin) 500 Mg Tablet 500 Mg PO DAILY06 10 Days Reported Lantus Solostar (Insulin Glargine,Hum.rec.anlog) 100 Unit/1 Ml Insuln.pen 20 Unit SQ HS Hydralazine Hcl 50 Mg Tablet 50 Mg PO BID Amlodipine Besylate 10 Mg Tablet 10 Mg PO DAILY Lisinopril 40 Mg Tablet 40 Mg PO BID Atorvastatin Calcium 40 Mg Tablet 40 Mg PO HS Aspirin 81 Mg Tab.chew 81 Mg PO DAILY Humalog Kwikpen (Insulin Lispro) 200 Unit/1 Ml Insuln.pen 5 Unit SQ TIDWMEALS Tramadol Hcl 50 Mg Tablet 2 Tab PO PRN Q6HRS Protonix (Pantoprazole Sodium) 20 Mg Tablet.dr 2 Tab PO DAILY Docusate Sodium 100 Mg Capsule 1 Cap PO PRN DAILY PRN Carvedilol (Carvedilol) 12.5 Mg Tablet 1 Tab PO BID Eliquis (Apixaban) 5 Mg Tab.ds.pk 5 Mg PO BID Hydrocodone-Apap 7.5-325 (Hydrocodone Bit/Acetaminophen) 1 Each Tablet 1 Tab PO PRN Q4HRS PRN Vitals/I & O Vital Sign - Last 24 Hours 08/09/18 08/09/18 08/09/18 08/09/18 15:00 17:10 19:00 19:33 Temp 98.7 98.8 98.7 98.8 Pulse 85 83 77 Resp 18 18 B/P (MAP) 149/76 (100) 149/76 138/72 (94) Pulse Ox 97 94 O2 Delivery Room Air Room Air Room Air 08/09/18 08/09/18 08/10/18 08/10/18 21:13 23:11 03:00 07:00 Temp 98.3 97.9 98.4 98.3 97.9 98.4 Pulse 80 76 73 72 Resp 18 18 16 B/P (MAP) 145/73 116/74 (88) 141/75 (97) 136/73 (94) Pulse Ox 95 98 98 O2 Delivery Room Air Room Air Room Air 08/10/18 08/10/18 08/10/18 08/10/18 09:33 09:34 09:34 09:34 Pulse 72 72 72 72 B/P (MAP) 136/73 136/73 136/73 136/73 08/10/18 11:00 Temp 98.4 98.4 Pulse 81 Resp 16 B/P (MAP) 139/72 (94) Pulse Ox 96 O2 Delivery Room Air Intake and Output 08/09/18 08/09/18 08/10/18 14:59 22:59 06:59 Intake Total 120 ml Balance 120 ml CELY BLACKWELL MD Aug 10, 2018 12:01
[2018-08-10] MEDS: DOCUSATE SODIUM 100 MG CAPSULE. PO PRN (14:52)
[2018-08-10 15:00] VITALS: BP 128/67
[2018-08-10 19:00] VITALS: BP 136/68
[2018-08-10] MEDS: ATORVASTATIN CALCIUM 40 MG TABLET. PO SCH (22:17)
[2018-08-10] MEDS: INSULIN GLARGINE 300 UNITS/3 ML INSULN.PEN. SQ SCH (22:22)
[2018-08-10 23:13] VITALS: BP 127/65
[2018-08-11 03:00] VITALS: BP 133/62
[2018-08-11 04:04] LABS: CALCIUM 8.1 mg/dL (8.5-10.1); CREATININE 3.7 mg/dL (0.7-1.3); POTASSIUM 4.4 mmol/L (3.5-5.1)
[2018-08-11] MEDS: PANTOPRAZOLE 40 MG TABLET.DR. PO SCH (06:07)
[2018-08-11 07:00] VITALS: BP 131/72
[2018-08-11] MEDS: INSULIN LISPRO 300 UNITS/3 ML INSULN.PEN. SQ SCH ×6 (08:00→16:54)
[2018-08-11] MEDS: LISINOPRIL 10 MG TABLET PO SCH (08:09)
[2018-08-11] MEDS: CARVEDILOL 12.5 MG TABLET. PO SCH ×2 (08:09→16:52)
[2018-08-11] MEDS: amLODIPine BESYLATE 10 MG TABLET PO SCH (08:10)
--- NOTE | 2018-08-11 10:20 | RAD ---
CT HEAD WITHOUT CONTRAST 08/11/2018 8:19 AM Indication: interval follow up, some mild headache, sleepiness occasional
previous Comparison: CT head without contrast August 07, 2018 Procedure: Multidetector CT imaging of the head was performed without the administration of contrast. Findings: Redemonstration of the intraparenchymal hemorrhage involving the right basal ganglia with surrounding vasogenic edema. The degree of focal mass effect and edema is similar. The amount of hyperattenuating blood products has slightly decreased in the interim since prior exam. Minimal associated midline shift is stable. No interval hemorrhage is identified. No acute, abnormal extra-axial fluid collections are identified. The basal cisterns are unaffected. No acute osseous changes are noted in the interim. IMPRESSION: Slight decrease in size and hyperdense right basal ganglia hemorrhage in the interim. Surrounding edema is grossly similar. Otherwise grossly similar appearance. CT DOSING PQRS STATEMENT: One or more of the following individualized dose reduction techniques were utilized for this examination: 1. Automated exposure control 2. Adjustment of the mA and/or kV according to patient size 3. Use of iterative reconstruction technique Electronically signed by: Robert Guadalupe MD (08/11/2018 10:18 AM) [id number]
--- NOTE | 2018-08-11 10:45 | PDOC ---
SUBJECTIVE ROS Stable OBJECTIVE Vital Signs Vital Signs Date Time Temp Pulse Resp B/P (MAP) Pulse Ox O2 Delivery O2 Flow Rate FiO2 08/11/18 08:10 70 131/72 08/11/18 08:00 Room Air 08/11/18 07:00 98.2 16 97 98.2 I & 0 Intake and Output 08/11/18 06:59 Intake Total 120 ml Balance 120 ml Intake Oral 120 ml # Voids 4 PHYSICAL EXAM Physical Exam General: Cooperative, No acute distress Heart: Regular rate, Normal S1, Other (irrr) Lungs: Clear Abdomen: Normal bowel sounds, Soft, No tenderness Extremities: No clubbing, No cyanosis, Normal pulses Skin: No breakdown no valdes DIAGNOSIS/ASSESSMENT Assessment & Plan TAD - No improvement in renal function, Cr 3.7 Renal Sono negative E-lytes are stable, Good UOP as per his mother - Not recorded accurately As per Dr. Spence- follow up as OP after Dc with him Currently No emergent indication for HD today , will re-eval in am CKD Stage 3- Cr of 2.0 Stable basal ganglia hemorrhage, films 08/07/18 Intracranial hemorrhage, acute- neurology Following CVA HTN- BP at goal DM I Anemia-stable COMMENT/RELEVANT DATA Meds Current Medications Medications (Trade) Dose Ordered Sig/Melania Start Time Stop Time Status Last Admin Dose Admin Acetaminophen (Tylenol) 500 mg PRN Q6HRS PRN 08/08/18 09:15 08/09/18 21:40 500 MG Acetaminophen/ Codeine Phosphate (Tylenol #3) 1 tab PRN Q6HRS PRN 08/08/18 09:15 Acetaminophen/ Hydrocodone Bitart (Lortab 7.5/325) 1 tab PRN Q4HRS PRN 08/06/18 21:00 08/07/18 16:13 1 TAB Amlodipine Besylate (Norvasc) 10 mg DAILY 08/07/18 09:00 08/11/18 08:10 10 MG Atorvastatin Calcium (Lipitor) 40 mg HS 08/06/18 21:00 08/10/18 22:17 40 MG Carvedilol (Coreg) 12.5 mg BIDWMEALS 08/06/18 21:00 08/11/18 08:09 12.5 MG Dextrose (Dextrose 50%-Water Syringe) 12.5 gm PRN Q15MIN PRN 08/07/18 06:30 08/11/18 07:25 12.5 GM Docusate Sodium (Colace) 100 mg PRN DAILY PRN 08/06/18 21:00 08/10/18 14:52 100 MG Hydralazine HCl (Apresoline) 50 mg BID 08/06/18 21:00 08/11/18 08:09 50 MG Insulin Glargine (Lantus) 20 units HS 08/06/18 21:00 08/10/18 22:22 20 UNITS Insulin Human Lispro (HumaLOG) 0-5 UNITS TIDWMEALS 08/07/18 08:00 08/10/18 16:39 4 UNITS Labetalol HCl (Normodyne Iv Push) 10 mg PRN Q2HR PRN 08/08/18 09:15 Lisinopril (Prinivil) 10 mg DAILY 08/08/18 11:00 08/11/18 08:09 10 MG Nicardipine HCl 50 mg/Sodium Chloride 250 ml @ 25 mls/hr CONT PRN 08/06/18 17:30 08/07/18 16:25 DC 08/06/18 22:09 50 MLS/HR Ondansetron HCl (Zofran Odt) 4 mg PRN Q6HRS PRN 08/08/18 09:15 Ondansetron HCl (Zofran) 4 mg PRN Q6HRS PRN 08/08/18 09:15 Pantoprazole Sodium (Protonix) 40 mg DAILYAC 08/07/18 07:30 08/11/18 06:07 40 MG Prothrombin Complex Concent (Human) 4000 unit/ Miscellaneous 160 ml @ 8.4 mls/min 1X ONCE 08/06/18 20:30 08/06/18 20:49 DC 08/06/18 19:30 8.4 MLS/MIN Sodium Chloride 1,000 ml @ 75 mls/hr [id number] 08/07/18 11:45 08/08/18 16:27 DC 08/08/18 01:49 75 MLS/HR Lab Laboratory Tests Test 08/10/18 11:02 08/10/18 16:07 08/10/18 20:12 08/11/18 02:30 Glucose (Fingerstick) 166 mg/dL (70-99) 263 mg/dL (70-99) 165 mg/dL (70-99) Sodium Level 136 mmol/L (136-145) Potassium Level 4.4 mmol/L (3.5-5.1) Chloride Level 105 mmol/L (98-107) Carbon Dioxide Level 23 mmol/L (21-32) Anion Gap 8 (6-14) Blood Urea Nitrogen 42 mg/dL (8-26) Creatinine 3.7 mg/dL (0.7-1.3) Estimated GFR (Cockcroft-Gault) 21.0 Glucose Level 136 mg/dL (70-99) Calcium Level 8.1 mg/dL (8.5-10.1) Test 08/11/18 07:18 Glucose (Fingerstick) 41 mg/dL (70-99) Results All relevant outside records, renal labs, imaging studies, telemetry/EKG's were reviewed. HAVEN BROOKE MD Aug 11, 2018 10:45
[2018-08-11 11:00] VITALS: BP 108/57
--- NOTE | 2018-08-11 12:15 | NUR ---
SS following up with discharge planning. PT/OT recommended acute rehabilitation. materials planner/production planner, Niki Suresh, met with pt and discussed acute rehabilitation. Pt reported he has been to [facility] in the past and would like to return pending insurance authorization. Referral phoned and faxed to [facility], ; fax [phone].
--- NOTE | 2018-08-11 14:35 | PDOC ---
PROGRESS NOTES Chief Complaint Chief Complaint Stable basal ganglia hemorrhage, films 08/07/18, repeat CT on 08/11/2018 with similar slightly improved findings Intracranial hemorrhage, acute., Improving Headaches, MILD Facial droop with accelerated hypertension Accel hypertension, uncontrolled, noncompliance, no PCP AK I on CK D secondary to long-standing hypertension PLAN: for [facility] referral AVoid nephrotoxins Cleared from renal to go home WITH FF UP [facility] DC CT scan plain stable History of Present Illness History of Present Illness Patient sleeping a lot according to mother Most history is taken from mother at bedside No acute events reported overnighto ICH Stable brain bleed as per recent films BP 130s, better Sonogram supports medical renal disease CREat stable at 3.6 - ok for OP ff up with renal Good uO, K and bicarb ok PT recs [facility] - updated mom - agreeable - waiting for saturday Vitals Vitals Vital Signs Date Time Temp Pulse Resp B/P (MAP) Pulse Ox O2 Delivery O2 Flow Rate FiO2 08/11/18 11:00 98.2 69 16 108/57 (74) 96 Room Air 98.2 Physical Exam General: No acute distress Heart: Regular rate, Normal S1, Other (irrr) Lungs: Clear Abdomen: Normal bowel sounds, Soft, No tenderness Extremities: No clubbing, No cyanosis, Normal pulses Skin: No breakdown Labs LABS Laboratory Tests Test 08/10/18 16:07 08/10/18 20:12 08/11/18 02:30 08/11/18 07:18 Glucose (Fingerstick) 263 mg/dL (70-99) 165 mg/dL (70-99) 41 mg/dL (70-99) Sodium Level 136 mmol/L (136-145) Potassium Level 4.4 mmol/L (3.5-5.1) Chloride Level 105 mmol/L (98-107) Carbon Dioxide Level 23 mmol/L (21-32) Anion Gap 8 (6-14) Blood Urea Nitrogen 42 mg/dL (8-26) Creatinine 3.7 mg/dL (0.7-1.3) Estimated GFR (Cockcroft-Gault) 21.0 Glucose Level 136 mg/dL (70-99) Calcium Level 8.1 mg/dL (8.5-10.1) Test 08/11/18 11:29 Glucose (Fingerstick) 133 mg/dL (70-99) Review of Systems Review of Systems Unable to obtain since very little interaction with the patient not very cooperative Assessment and Plan Assessmemt and Plan Problems Medical Problems: (1) [id number] renal failure Status: Acute (2) Intracranial hemorrhage Status: Acute Comment Review of Relevant I have reviewed the following items bibi (where applicable) has been applied. Labs Laboratory Tests Test 08/09/18 16:43 08/09/18 20:30 08/10/18 04:35 08/10/18 07:25 Glucose (Fingerstick) 193 mg/dL (70-99) 129 mg/dL (70-99) 78 mg/dL (70-99) Sodium Level 136 mmol/L (136-145) Potassium Level 4.4 mmol/L (3.5-5.1) Chloride Level 105 mmol/L (98-107) Carbon Dioxide Level 22 mmol/L (21-32) Anion Gap 9 (6-14) Blood Urea Nitrogen 39 mg/dL (8-26) Creatinine 3.6 mg/dL (0.7-1.3) Estimated GFR (Cockcroft-Gault) 21.7 Glucose Level 105 mg/dL (70-99) Calcium Level 8.4 mg/dL (8.5-10.1) Test 08/10/18 11:02 08/10/18 16:07 08/10/18 20:12 08/11/18 02:30 Glucose (Fingerstick) 166 mg/dL (70-99) 263 mg/dL (70-99) 165 mg/dL (70-99) Sodium Level 136 mmol/L (136-145) Potassium Level 4.4 mmol/L (3.5-5.1) Chloride Level 105 mmol/L (98-107) Carbon Dioxide Level 23 mmol/L (21-32) Anion Gap 8 (6-14) Blood Urea Nitrogen 42 mg/dL (8-26) Creatinine 3.7 mg/dL (0.7-1.3) Estimated GFR (Cockcroft-Gault) 21.0 Glucose Level 136 mg/dL (70-99) Calcium Level 8.1 mg/dL (8.5-10.1) Test 08/11/18 07:18 08/11/18 11:29 Glucose (Fingerstick) 41 mg/dL (70-99) 133 mg/dL (70-99) Laboratory Tests Test 08/10/18 16:07 08/10/18 20:12 08/11/18 02:30 08/11/18 07:18 Glucose (Fingerstick) 263 mg/dL (70-99) 165 mg/dL (70-99) 41 mg/dL (70-99) Sodium Level 136 mmol/L (136-145) Potassium Level 4.4 mmol/L (3.5-5.1) Chloride Level 105 mmol/L (98-107) Carbon Dioxide Level 23 mmol/L (21-32) Anion Gap 8 (6-14) Blood Urea Nitrogen 42 mg/dL (8-26) Creatinine 3.7 mg/dL (0.7-1.3) Estimated GFR (Cockcroft-Gault) 21.0 Glucose Level 136 mg/dL (70-99) Calcium Level 8.1 mg/dL (8.5-10.1) Test 08/11/18 11:29 Glucose (Fingerstick) 133 mg/dL (70-99) Microbiology 08/06/18 Blood Culture - Preliminary, Resulted NO GROWTH AFTER 4 DAYS Medications Current Medications Labetalol HCl (Normodyne Iv Push) 10 mg 1X ONCE IVP Last administered on at 17:27; Start 08/06/18 at 17:15; Stop 08/06/18 at 17:16; Status DC Nicardipine HCl 50 mg/Sodium Chloride 250 ml @ 25 mls/hr CONT PRN IV SEE I/O RECORD Last administered on 08/06/18at 22:09; Start 08/06/18 at 17:30; Stop 08/07 at 16:25; Status DC Prothrombin Complex Concent (Human) 4000 unit/ Miscellaneous 160 ml @ 8.4 mls/ min 1X ONCE IV ; Start 08/06/18 at 18:30; Stop 08/06/18 at 18:49; Status Cancel Labetalol HCl (Normodyne Iv Push) 10 mg 1X ONCE IVP Last administered on at 18:30; Start 08/06/18 at 18:30; Stop 08/06/18 at 18:31; Status DC Prothrombin Complex Concent (Human) 4000 unit/ Miscellaneous 160 ml @ 8.4 mls/ min 1X ONCE IV Last administered on 08/06/18 19:30; Start 08/06/18 at 20:30; Stop 08/06/18 at 20:49; Status DC Amlodipine Besylate (Norvasc) 10 mg DAILY PO Last administered on 08/11/18 08: 10; Start 08/07/18 at 09:00 Atorvastatin Calcium (Lipitor) 40 mg HS PO Last administered on 08/10/18 22:17 ; Start 08/06/18 at 21:00 Carvedilol (Coreg) 12.5 mg BIDWMEALS PO Last administered on 08/11/18 08:09; Start 08/06/18 at 21:00 Docusate Sodium (Colace) 100 mg PRN DAILY PRN PO CONSTIPATION 1ST CHOICE Last administered on 08/10/18 14:52; Start 08/06/18 at 21:00 Acetaminophen/ Hydrocodone Bitart (Lortab 7.5/325) 1 tab PRN Q4HRS PRN PO SEVERE PAIN Last administered on 08/07/18 16:13; Start 08/06/18 at 21:00 Insulin Glargine (Lantus) 20 units HS SQ Last administered on 08/10/18 22:22; Start 08/06/18 at 21:00 Lisinopril (Prinivil) 40 mg BID PO ; Start 08/06/18 at 21:00; Stop 08/06/18 at 21:25; Status DC Hydralazine HCl (Apresoline) 50 mg BID PO Last administered on 08/11/18 08:09 ; Start 08/06/18 at 21:00 Insulin Human Lispro (HumaLOG) 5 units TIDWMEALS SQ Last administered on 16:37; Start 08/07/18 at 08:00 Pantoprazole Sodium (Protonix) 40 mg DAILYAC PO Last administered on 08/11/18 06:07; Start 08/07/18 at 07:30 Insulin Human Lispro (HumaLOG) 0-5 UNITS TIDWMEALS SQ Last administered on 08/10 16:39; Start 08/07/18 at 08:00 Dextrose (Dextrose 50%-Water Syringe) 12.5 gm PRN Q15MIN PRN IV SEE COMMENTS Last administered on 3/18/19at 07:25; Start 08/07/18 at 06:30 Sodium Chloride 1,000 ml @ 75 mls/hr [id number] IV Last administered on at 01:49; Start 08/07/18 at 11:45; Stop 08/08/18 at 16:27; Status DC Acetaminophen (Tylenol) 500 mg PRN Q6HRS PRN PO MILD PAIN / TEMP Last administered on 08/09/18at 21:40; Start 08/08/18 at 09:15 Acetaminophen/ Codeine Phosphate (Tylenol #3) 1 tab PRN Q6HRS PRN PO MODERATE PAIN; Start 08/08/18 at 09:15 Ondansetron HCl (Zofran) 4 mg PRN Q6HRS PRN IV NAUSEA/VOMITING; Start 08/08/18 at 09:15 Ondansetron HCl (Zofran Odt) 4 mg PRN Q6HRS PRN PO NAUSEA/VOMITING; Start 08/08 at 09:15 Labetalol HCl (Normodyne Iv Push) 10 mg PRN Q2HR PRN IVP HYPERTENSION, SEE COMMENTS; Start 08/08/18 at 09:15 Lisinopril (Prinivil) 10 mg DAILY PO Last administered on 08/11/18at 08:09; Start 08/08/18 at 11:00 Active Scripts Active Ferrous Sulfate 325 Mg Tablet 1 Tab PO DAILY Levaquin (Levofloxacin) 500 Mg Tablet 500 Mg PO DAILY06 10 Days Reported Lantus Solostar (Insulin Glargine,Hum.rec.anlog) 100 Unit/1 Ml Insuln.pen 20 Unit SQ HS Hydralazine Hcl 50 Mg Tablet 50 Mg PO BID Amlodipine Besylate 10 Mg Tablet 10 Mg PO DAILY Lisinopril 40 Mg Tablet 40 Mg PO BID Atorvastatin Calcium 40 Mg Tablet 40 Mg PO HS Aspirin 81 Mg Tab.chew 81 Mg PO DAILY Humalog Kwikpen (Insulin Lispro) 200 Unit/1 Ml Insuln.pen 5 Unit SQ TIDWMEALS Tramadol Hcl 50 Mg Tablet 2 Tab PO PRN Q6HRS Protonix (Pantoprazole Sodium) 20 Mg Tablet.dr 2 Tab PO DAILY Docusate Sodium 100 Mg Capsule 1 Cap PO PRN DAILY PRN Carvedilol (Carvedilol) 12.5 Mg Tablet 1 Tab PO BID Eliquis (Apixaban) 5 Mg Tab.ds.pk 5 Mg PO BID Hydrocodone-Apap 7.5-325 (Hydrocodone Bit/Acetaminophen) 1 Each Tablet 1 Tab PO PRN Q4HRS PRN Vitals/I & O Vital Sign - Last 24 Hours 08/10/18 08/10/18 08/10/18 08/10/18 15:00 16:34 19:00 20:00 Temp 97.9 98.8 97.9 98.8 Pulse 77 77 72 Resp 16 18 B/P (MAP) 128/67 (87) 128/67 136/68 (90) Pulse Ox 98 97 O2 Delivery Room Air Room Air Room Air 08/10/18 08/10/18 08/11/18 08/11/18 22:18 23:13 03:00 07:00 Temp 98.5 98.4 98.2 98.5 98.4 98.2 Pulse 75 72 74 70 Resp 18 20 16 B/P (MAP) 127/65 127/65 (85) 133/62 (85) 131/72 (91) Pulse Ox 95 98 97 O2 Delivery Room Air Room Air Room Air 08/11/18 08/11/18 08/11/18 08/11/18 08:00 08:09 08:09 08:09 Pulse 70 70 70 B/P (MAP) 131/72 131/72 131/72 O2 Delivery Room Air 08/11/18 08/11/18 08:10 11:00 Temp 98.2 98.2 Pulse 70 69 Resp 16 B/P (MAP) 131/72 108/57 (74) Pulse Ox 96 O2 Delivery Room Air Intake and Output 08/10/18 08/10/18 08/11/18 15:00 23:00 07:00 Intake Total 120 ml Balance 120 ml YOLANDA SÁNCHEZ MD Aug 11, 2018 14:35
--- NOTE | 2018-08-11 14:51 | PDOC ---
PROGRESS NOTES Assessment Problems Medical Problems: (1) Evqos-nf-ofkuteu renal failure Status: Acute (2) Intracranial hemorrhage Status: Acute Acute right caudate nuclear and central semiovale hemorrhage. Metabolic encephalopathy. Near hypertensive urgency, BP 198/101 mmHg. Hx of AFib on Eliquis. UTI. Renal failure. 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 Tobacco use. Plan BP control, no higher than 159//90 mmHg. Repeat HCT if condition worse. Avoid anti-coagulant and antiplatelet at the present time. Treat medical diseases. Consulted NS. Discussed with family. Plan on holding Eliquis 4-6 weeks Transfer to acute rehab, was at [facility] rehab for his previous stroke. Subjective No complaints Objective Vital Signs Date Time Temp Pulse Resp B/P (MAP) Pulse Ox O2 Delivery O2 Flow Rate FiO2 08/11/18 11:00 98.2 69 16 108/57 (74) 96 Room Air 98.2 Intake and Output 08/11/18 06:59 Intake Total 120 ml Balance 120 ml Intake Oral 120 ml # Voids 4 PHYSICAL EXAM Alert. Oriented to time, place and person. PERRL. EOMI. CN: left central facial weakness Muscle tone: normal. Muscle strength: 4/5 on left, 5/5 on right DTR: 1+ Plantar reflex: flexor Gait: not examined in bed. Sensory exam: no abnormal findings. No cerebellar signs elicited. Review of Relevant I have reviewed the following items bibi (where applicable) has been applied. Labs Laboratory Tests Test 08/09/18 16:43 08/09/18 20:30 08/10/18 04:35 08/10/18 07:25 Glucose (Fingerstick) 193 mg/dL (70-99) 129 mg/dL (70-99) 78 mg/dL (70-99) Sodium Level 136 mmol/L (136-145) Potassium Level 4.4 mmol/L (3.5-5.1) Chloride Level 105 mmol/L (98-107) Carbon Dioxide Level 22 mmol/L (21-32) Anion Gap 9 (6-14) Blood Urea Nitrogen 39 mg/dL (8-26) Creatinine 3.6 mg/dL (0.7-1.3) Estimated GFR (Cockcroft-Gault) 21.7 Glucose Level 105 mg/dL (70-99) Calcium Level 8.4 mg/dL (8.5-10.1) Test 08/10/18 11:02 08/10/18 16:07 08/10/18 20:12 08/11/18 02:30 Glucose (Fingerstick) 166 mg/dL (70-99) 263 mg/dL (70-99) 165 mg/dL (70-99) Sodium Level 136 mmol/L (136-145) Potassium Level 4.4 mmol/L (3.5-5.1) Chloride Level 105 mmol/L (98-107) Carbon Dioxide Level 23 mmol/L (21-32) Anion Gap 8 (6-14) Blood Urea Nitrogen 42 mg/dL (8-26) Creatinine 3.7 mg/dL (0.7-1.3) Estimated GFR (Cockcroft-Gault) 21.0 Glucose Level 136 mg/dL (70-99) Calcium Level 8.1 mg/dL (8.5-10.1) Test 08/11/18 07:18 08/11/18 11:29 Glucose (Fingerstick) 41 mg/dL (70-99) 133 mg/dL (70-99) Laboratory Tests Test 08/10/18 16:07 08/10/18 20:12 08/11/18 02:30 08/11/18 07:18 Glucose (Fingerstick) 263 mg/dL (70-99) 165 mg/dL (70-99) 41 mg/dL (70-99) Sodium Level 136 mmol/L (136-145) Potassium Level 4.4 mmol/L (3.5-5.1) Chloride Level 105 mmol/L (98-107) Carbon Dioxide Level 23 mmol/L (21-32) Anion Gap 8 (6-14) Blood Urea Nitrogen 42 mg/dL (8-26) Creatinine 3.7 mg/dL (0.7-1.3) Estimated GFR (Cockcroft-Gault) 21.0 Glucose Level 136 mg/dL (70-99) Calcium Level 8.1 mg/dL (8.5-10.1) Test 08/11/18 11:29 Glucose (Fingerstick) 133 mg/dL (70-99) Microbiology 08/06/18 Blood Culture - Preliminary, Resulted NO GROWTH AFTER 4 DAYS Medications Current Medications Labetalol HCl (Normodyne Iv Push) 10 mg 1X ONCE IVP Last administered on 17:27; Start 08/06/18 at 17:15; Stop 08/06/18 at 17:16; Status DC Nicardipine HCl 50 mg/Sodium Chloride 250 ml @ 25 mls/hr CONT PRN IV SEE I/O RECORD Last administered on 08/06/18 22:09; Start 08/06/18 at 17:30; Stop 08/07 at 16:25; Status DC Prothrombin Complex Concent (Human) 4000 unit/ Miscellaneous 160 ml @ 8.4 mls/ min 1X ONCE IV ; Start 08/06/18 at 18:30; Stop 08/06/18 at 18:49; Status Cancel Labetalol HCl (Normodyne Iv Push) 10 mg 1X ONCE IVP Last administered on 18:30; Start 08/06/18 at 18:30; Stop 08/06/18 at 18:31; Status DC Prothrombin Complex Concent (Human) 4000 unit/ Miscellaneous 160 ml @ 8.4 mls/ min 1X ONCE IV Last administered on 08/06/18 19:30; Start 08/06/18 at 20:30; Stop 08/06/18 at 20:49; Status DC Amlodipine Besylate (Norvasc) 10 mg DAILY PO Last administered on 08/11/18 08: 10; Start 08/07/18 at 09:00 Atorvastatin Calcium (Lipitor) 40 mg HS PO Last administered on 08/10/18 22:17 ; Start 08/06/18 at 21:00 Carvedilol (Coreg) 12.5 mg BIDWMEALS PO Last administered on 08/11/18 08:09; Start 08/06/18 at 21:00 Docusate Sodium (Colace) 100 mg PRN DAILY PRN PO CONSTIPATION 1ST CHOICE Last administered on 08/10/18 14:52; Start 08/06/18 at 21:00 Acetaminophen/ Hydrocodone Bitart (Lortab 7.5/325) 1 tab PRN Q4HRS PRN PO SEVERE PAIN Last administered on 08/07/18 16:13; Start 08/06/18 at 21:00 Insulin Glargine (Lantus) 20 units HS SQ Last administered on 08/10/18 22:22; Start 08/06/18 at 21:00 Lisinopril (Prinivil) 40 mg BID PO ; Start 08/06/18 at 21:00; Stop 08/06/18 at 21:25; Status DC Hydralazine HCl (Apresoline) 50 mg BID PO Last administered on 08/11/18at 08:09 ; Start 08/06/18 at 21:00 Insulin Human Lispro (HumaLOG) 5 units TIDWMEALS SQ Last administered on at 16:37; Start 08/07/18 at 08:00 Pantoprazole Sodium (Protonix) 40 mg DAILYAC PO Last administered on 08/11/18at 06:07; Start 08/07/18 at 07:30 Insulin Human Lispro (HumaLOG) 0-5 UNITS TIDWMEALS SQ Last administered on 08/10at 16:39; Start 08/07/18 at 08:00 Dextrose (Dextrose 50%-Water Syringe) 12.5 gm PRN Q15MIN PRN IV SEE COMMENTS Last administered on 08/11/18at 07:25; Start 08/07/18 at 06:30 Sodium Chloride 1,000 ml @ 75 mls/hr [id number] IV Last administered on at 01:49; Start 08/07/18 at 11:45; Stop 08/08/18 at 16:27; Status DC Acetaminophen (Tylenol) 500 mg PRN Q6HRS PRN PO MILD PAIN / TEMP Last administered on 08/09/18at 21:40; Start 08/08/18 at 09:15 Acetaminophen/ Codeine Phosphate (Tylenol #3) 1 tab PRN Q6HRS PRN PO MODERATE PAIN; Start 08/08/18 at 09:15 Ondansetron HCl (Zofran) 4 mg PRN Q6HRS PRN IV NAUSEA/VOMITING; Start 08/08/18 at 09:15 Ondansetron HCl (Zofran Odt) 4 mg PRN Q6HRS PRN PO NAUSEA/VOMITING; Start 08/08 at 09:15 Labetalol HCl (Normodyne Iv Push) 10 mg PRN Q2HR PRN IVP HYPERTENSION, SEE COMMENTS; Start 08/08/18 at 09:15 Lisinopril (Prinivil) 10 mg DAILY PO Last administered on 08/11/18at 08:09; Start 08/08/18 at 11:00 Active Scripts Active Ferrous Sulfate 325 Mg Tablet 1 Tab PO DAILY Levaquin (Levofloxacin) 500 Mg Tablet 500 Mg PO DAILY06 10 Days Reported Lantus Solostar (Insulin Glargine,Hum.rec.anlog) 100 Unit/1 Ml Insuln.pen 20 Unit SQ HS Hydralazine Hcl 50 Mg Tablet 50 Mg PO BID Amlodipine Besylate 10 Mg Tablet 10 Mg PO DAILY Lisinopril 40 Mg Tablet 40 Mg PO BID Atorvastatin Calcium 40 Mg Tablet 40 Mg PO HS Aspirin 81 Mg Tab.chew 81 Mg PO DAILY Humalog Kwikpen (Insulin Lispro) 200 Unit/1 Ml Insuln.pen 5 Unit SQ TIDWMEALS Tramadol Hcl 50 Mg Tablet 2 Tab PO PRN Q6HRS Protonix (Pantoprazole Sodium) 20 Mg Tablet.dr 2 Tab PO DAILY Docusate Sodium 100 Mg Capsule 1 Cap PO PRN DAILY PRN Carvedilol (Carvedilol) 12.5 Mg Tablet 1 Tab PO BID Eliquis (Apixaban) 5 Mg Tab.ds.pk 5 Mg PO BID Hydrocodone-Apap 7.5-325 (Hydrocodone Bit/Acetaminophen) 1 Each Tablet 1 Tab PO PRN Q4HRS PRN Vitals/I & O Vital Sign - Last 24 Hours 08/10/18 08/10/18 08/10/18 08/10/18 15:00 16:34 19:00 20:00 Temp 97.9 98.8 97.9 98.8 Pulse 77 77 72 Resp 16 18 B/P (MAP) 128/67 (87) 128/67 136/68 (90) Pulse Ox 98 97 O2 Delivery Room Air Room Air Room Air 08/10/18 08/10/18 08/11/18 08/11/18 22:18 23:13 03:00 07:00 Temp 98.5 98.4 98.2 98.5 98.4 98.2 Pulse 75 72 74 70 Resp 18 20 16 B/P (MAP) 127/65 127/65 (85) 133/62 (85) 131/72 (91) Pulse Ox 95 98 97 O2 Delivery Room Air Room Air Room Air 08/11/18 08/11/18 08/11/18 08/11/18 08:00 08:09 08:09 08:09 Pulse 70 70 70 B/P (MAP) 131/72 131/72 131/72 O2 Delivery Room Air 08/11/18 08/11/18 08:10 11:00 Temp 98.2 98.2 Pulse 70 69 Resp 16 B/P (MAP) 131/72 108/57 (74) Pulse Ox 96 O2 Delivery Room Air Intake and Output 08/10/18 08/10/18 08/11/18 14:59 22:59 06:59 Intake Total 120 ml Balance [address] HEAD WITHOUT CONTRAST 08/11/2018 8:19 AM Indication: interval follow up, some mild headache, sleepiness occasional
previous Comparison: CT head without contrast August 07, 2018 Procedure: Multidetector CT imaging of the head was performed without the administration of contrast. Findings: Redemonstration of the intraparenchymal hemorrhage involving the right basal ganglia with surrounding vasogenic edema. The degree of focal mass effect and edema is similar. The amount of hyperattenuating blood products has slightly decreased in the interim since prior exam. Minimal associated midline shift is stable. No interval hemorrhage is identified. No acute, abnormal extra-axial fluid collections are identified. The basal cisterns are unaffected. No acute osseous changes are noted in the interim. IMPRESSION: Slight decrease in size and hyperdense right basal ganglia hemorrhage in the interim. Surrounding edema is grossly similar. Otherwise grossly similar appearance. LILIYA MEAD MD Aug 11, 2018 14:51
[2018-08-11 15:00] VITALS: BP 137/75
[2018-08-11] MEDS: DOCUSATE SODIUM 100 MG CAPSULE. PO PRN (15:12)
[2018-08-11 19:00] VITALS: BP 136/64
[2018-08-11] MEDS: ATORVASTATIN CALCIUM 40 MG TABLET. PO SCH (20:49)
[2018-08-11] MEDS: INSULIN GLARGINE 300 UNITS/3 ML INSULN.PEN. SQ SCH (20:53)
[2018-08-11 23:59] VITALS: BP 136/67
[2018-08-12 03:00] VITALS: BP 141/66
[2018-08-12] MEDS: PANTOPRAZOLE 40 MG TABLET.DR. PO SCH (06:22)
[2018-08-12 07:00] VITALS: BP 137/68
[2018-08-12] MEDS: INSULIN LISPRO 300 UNITS/3 ML INSULN.PEN. SQ SCH ×6 (08:00→17:15)
[2018-08-12] MEDS: CARVEDILOL 12.5 MG TABLET. PO SCH ×2 (08:30→17:13)
[2018-08-12] MEDS: amLODIPine BESYLATE 10 MG TABLET PO SCH (08:31)
[2018-08-12] MEDS: LISINOPRIL 10 MG TABLET PO SCH (08:37)
[2018-08-12 10:54] LABS: CREATININE 3.6 mg/dL (0.7-1.3); GFR 21.7; POTASSIUM 4.6 mmol/L (3.5-5.1)
--- NOTE | 2018-08-12 10:57 | PDOC ---
SUBJECTIVE ROS Stable OBJECTIVE Vital Signs Vital Signs Date Time Temp Pulse Resp B/P (MAP) Pulse Ox O2 Delivery O2 Flow Rate FiO2 08/12/18 08:37 58 137/68 08/12/18 08:00 Room Air 08/12/18 07:00 98.4 18 97 98.4 I & 0 Intake and Output 08/12/18 07:00 Intake Total 620 ml Output Total 400 ml Balance 220 ml Intake Oral 620 ml Output Urine Total 400 ml PHYSICAL EXAM Physical Exam General: Cooperative, No acute distress Heart: Regular rate, Normal S1, Other (irrr) Lungs: Clear Abdomen: Normal bowel sounds, Soft, No tenderness Extremities: No clubbing, No cyanosis, Normal pulses Skin: No breakdown no valdes DIAGNOSIS/ASSESSMENT Assessment & Plan TAD - No improvement in renal function, Cr 3.7 yesterday Renal Sono negative As per Dr. Spence- follow up as OP after Dc with him No emergent indication for HD based on labs from [facility] Ordered and pending CKD Stage 3- Cr of 2.0 Stable basal ganglia hemorrhage, films 08/07/18 Intracranial hemorrhage, acute- neurology Following CVA HTN- BP at goal DM I Anemia-stable COMMENT/RELEVANT DATA Meds Current Medications Medications (Trade) Dose Ordered Sig/Melania Start Time Stop Time Status Last Admin Dose Admin Acetaminophen (Tylenol) 500 mg PRN Q6HRS PRN 08/08/18 09:15 08/09/18 21:40 500 MG Acetaminophen/ Codeine Phosphate (Tylenol #3) 1 tab PRN Q6HRS PRN 08/08/18 09:15 Acetaminophen/ Hydrocodone Bitart (Lortab 7.5/325) 1 tab PRN Q4HRS PRN 08/06/18 21:00 08/07/18 16:13 1 TAB Amlodipine Besylate (Norvasc) 10 mg DAILY 08/07/18 09:00 08/12/18 08:31 10 MG Atorvastatin Calcium (Lipitor) 40 mg HS 08/06/18 21:00 08/11/18 20:49 40 MG Carvedilol (Coreg) 12.5 mg BIDWMEALS 08/06/18 21:00 08/12/18 08:30 12.5 MG Dextrose (Dextrose 50%-Water Syringe) 12.5 gm PRN Q15MIN PRN 08/07/18 06:30 08/11/18 07:25 12.5 GM Docusate Sodium (Colace) 100 mg PRN DAILY PRN 08/06/18 21:00 08/11/18 15:12 100 MG Hydralazine HCl (Apresoline) 50 mg BID 08/06/18 21:00 08/12/18 08:31 50 MG Insulin Glargine (Lantus) 20 units HS 08/06/18 21:00 08/11/18 20:53 10 UNITS Insulin Human Lispro (HumaLOG) 0-5 UNITS TIDWMEALS 08/07/18 08:00 08/11/18 16:54 2 UNITS Labetalol HCl (Normodyne Iv Push) 10 mg PRN Q2HR PRN 08/08/18 09:15 Lisinopril (Prinivil) 10 mg DAILY 08/08/18 11:00 08/12/18 08:37 10 MG Nicardipine HCl 50 mg/Sodium Chloride 250 ml @ 25 mls/hr CONT PRN 08/06/18 17:30 08/07/18 16:25 DC 08/06/18 22:09 50 MLS/HR Ondansetron HCl (Zofran Odt) 4 mg PRN Q6HRS PRN 08/08/18 09:15 Ondansetron HCl (Zofran) 4 mg PRN Q6HRS PRN 08/08/18 09:15 Pantoprazole Sodium (Protonix) 40 mg DAILYAC 08/07/18 07:30 08/12/18 06:22 40 MG Prothrombin Complex Concent (Human) 4000 unit/ Miscellaneous 160 ml @ 8.4 mls/min 1X ONCE 08/06/18 20:30 08/06/18 20:49 DC 08/06/18 19:30 8.4 MLS/MIN Sodium Chloride 1,000 ml @ 75 mls/hr [id number] 08/07/18 11:45 08/08/18 16:27 DC 08/08/18 01:49 75 MLS/HR Lab Laboratory Tests Test 08/11/18 11:29 08/11/18 16:30 08/11/18 19:59 08/12/18 08:21 Glucose (Fingerstick) 133 mg/dL (70-99) 190 mg/dL (70-99) 242 mg/dL (70-99) 160 mg/dL (70-99) Results All relevant outside records, renal labs, imaging studies, telemetry/EKG's were reviewed. Other CT head-- Slight decrease in size and hyperdense right basal ganglia hemorrhage in the interim. Surrounding edema is grossly similar. Otherwise grossly similar appearance. HAVEN BROOKE MD Aug 12, 2018 10:57
[2018-08-12 11:00] VITALS: BP 117/60
--- NOTE | 2018-08-12 12:12 | NUR ---
SW following. Discussed with RN, [facility] has submitted for insurance auth. SW awaiting confirmation on whether pt has been approved or not. RN notified. SW will continue to follow.
--- NOTE | 2018-08-12 12:14 | PDOC ---
PROGRESS NOTES Assessment Problems Medical Problems: (1) Ayzyq-kr-latwqvp renal failure Status: Acute (2) Intracranial hemorrhage Status: Acute Acute right caudate nuclear and central semiovale hemorrhage. Metabolic encephalopathy. Near hypertensive urgency, BP 198/101 mmHg. Hx of AFib on Eliquis. UTI. Renal failure. 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 Tobacco use. Plan BP control, no higher than 159//90 mmHg. Repeat HCT if condition worse. Avoid anti-coagulant and antiplatelet at the present time. Treat medical diseases. Consulted NS. Discussed with family. Plan on holding Eliquis 4-6 weeks Transfer to acute rehab, was at [facility] rehab for his previous stroke. Subjective No complaints Objective Vital Signs Date Time Temp Pulse Resp B/P (MAP) Pulse Ox O2 Delivery O2 Flow Rate FiO2 08/12/18 11:00 98.4 71 18 117/60 (79) 97 Room Air 98.4 Intake and Output 08/12/18 06:59 Intake Total 500 ml Output Total 400 ml Balance 100 ml Intake Oral 500 ml Output Urine Total 400 ml PHYSICAL EXAM Alert. Oriented to time, place and person. PERRL. EOMI. CN: left central facial weakness Muscle tone: normal. Muscle strength: 4/5 on left, 5/5 on right DTR: 1+ Plantar reflex: flexor Gait: not examined in bed. Sensory exam: no abnormal findings. No cerebellar signs elicited. Review of Relevant I have reviewed the following items bibi (where applicable) has been applied. Labs Laboratory Tests Test 08/10/18 16:07 08/10/18 20:12 08/11/18 02:30 08/11/18 07:18 Glucose (Fingerstick) 263 mg/dL (70-99) 165 mg/dL (70-99) 41 mg/dL (70-99) Sodium Level 136 mmol/L (136-145) Potassium Level 4.4 mmol/L (3.5-5.1) Chloride Level 105 mmol/L (98-107) Carbon Dioxide Level 23 mmol/L (21-32) Anion Gap 8 (6-14) Blood Urea Nitrogen 42 mg/dL (8-26) Creatinine 3.7 mg/dL (0.7-1.3) Estimated GFR (Cockcroft-Gault) 21.0 Glucose Level 136 mg/dL (70-99) Calcium Level 8.1 mg/dL (8.5-10.1) Test 08/11/18 11:29 08/11/18 16:30 08/11/18 19:59 08/12/18 08:21 Glucose (Fingerstick) 133 mg/dL (70-99) 190 mg/dL (70-99) 242 mg/dL (70-99) 160 mg/dL (70-99) Test 08/12/18 09:40 08/12/18 11:36 Sodium Level 136 mmol/L (136-145) Potassium Level 4.6 mmol/L (3.5-5.1) Chloride Level 104 mmol/L (98-107) Carbon Dioxide Level 24 mmol/L (21-32) Anion Gap 8 (6-14) Blood Urea Nitrogen 44 mg/dL (8-26) Creatinine 3.6 mg/dL (0.7-1.3) Estimated GFR (Cockcroft-Gault) 21.7 Glucose Level 157 mg/dL (70-99) Calcium Level 8.0 mg/dL (8.5-10.1) Glucose (Fingerstick) 138 mg/dL (70-99) Laboratory Tests Test 08/11/18 16:30 08/11/18 19:59 08/12/18 08:21 08/12/18 09:40 Glucose (Fingerstick) 190 mg/dL (70-99) 242 mg/dL (70-99) 160 mg/dL (70-99) Sodium Level 136 mmol/L (136-145) Potassium Level 4.6 mmol/L (3.5-5.1) Chloride Level 104 mmol/L (98-107) Carbon Dioxide Level 24 mmol/L (21-32) Anion Gap 8 (6-14) Blood Urea Nitrogen 44 mg/dL (8-26) Creatinine 3.6 mg/dL (0.7-1.3) Estimated GFR (Cockcroft-Gault) 21.7 Glucose Level 157 mg/dL (70-99) Calcium Level 8.0 mg/dL (8.5-10.1) Test 08/12/18 11:36 Glucose (Fingerstick) 138 mg/dL (70-99) Microbiology 08/06/18 Blood Culture - Final, Complete NO GROWTH AFTER 5 DAYS Medications Current Medications Labetalol HCl (Normodyne Iv Push) 10 mg 1X ONCE IVP Last administered on 17:27; Start 08/06/18 at 17:15; Stop 08/06/18 at 17:16; Status DC Nicardipine HCl 50 mg/Sodium Chloride 250 ml @ 25 mls/hr CONT PRN IV SEE I/O RECORD Last administered on 08/06/18 22:09; Start 08/06/18 at 17:30; Stop 08/07 at 16:25; Status DC Prothrombin Complex Concent (Human) 4000 unit/ Miscellaneous 160 ml @ 8.4 mls/ min 1X ONCE IV ; Start 08/06/18 at 18:30; Stop 08/06/18 at 18:49; Status Cancel Labetalol HCl (Normodyne Iv Push) 10 mg 1X ONCE IVP Last administered on 18:30; Start 08/06/18 at 18:30; Stop 08/06/18 at 18:31; Status DC Prothrombin Complex Concent (Human) 4000 unit/ Miscellaneous 160 ml @ 8.4 mls/ min 1X ONCE IV Last administered on 08/06/18 19:30; Start 08/06/18 at 20:30; Stop 08/06/18 at 20:49; Status DC Amlodipine Besylate (Norvasc) 10 mg DAILY PO Last administered on 08/12/18 08: 31; Start 08/07/18 at 09:00 Atorvastatin Calcium (Lipitor) 40 mg HS PO Last administered on 08/11/18 20:49 ; Start 08/06/18 at 21:00 Carvedilol (Coreg) 12.5 mg BIDWMEALS PO Last administered on 08/12/18 08:30; Start 08/06/18 at 21:00 Docusate Sodium (Colace) 100 mg PRN DAILY PRN PO CONSTIPATION 1ST CHOICE Last administered on 08/11/18 15:12; Start 08/06/18 at 21:00 Acetaminophen/ Hydrocodone Bitart (Lortab 7.5/325) 1 tab PRN Q4HRS PRN PO SEVERE PAIN Last administered on 08/07/18 16:13; Start 08/06/18 at 21:00 Insulin Glargine (Lantus) 20 units HS SQ Last administered on 08/11/18 20:53; Start 08/06/18 at 21:00 Lisinopril (Prinivil) 40 mg BID PO ; Start 08/06/18 at 21:00; Stop 08/06/18 at 21:25; Status DC Hydralazine HCl (Apresoline) 50 mg BID PO Last administered on 08/12/18 08:31 ; Start 08/06/18 at 21:00 Insulin Human Lispro (HumaLOG) 5 units TIDWMEALS SQ Last administered on at 12:10; Start 08/07/18 at 08:00 Pantoprazole Sodium (Protonix) 40 mg DAILYAC PO Last administered on 08/12/18 06:22; Start 08/07/18 at 07:30 Insulin Human Lispro (HumaLOG) 0-5 UNITS TIDWMEALS SQ Last administered on 08/11 16:54; Start 08/07/18 at 08:00 Dextrose (Dextrose 50%-Water Syringe) 12.5 gm PRN Q15MIN PRN IV SEE COMMENTS Last administered on 08/11/18at 07:25; Start 08/07/18 at 06:30 Sodium Chloride 1,000 ml @ 75 mls/hr [id number] IV Last administered on at 01:49; Start 08/07/18 at 11:45; Stop 08/08/18 at 16:27; Status DC Acetaminophen (Tylenol) 500 mg PRN Q6HRS PRN PO MILD PAIN / TEMP Last administered on 08/09/18at 21:40; Start 08/08/18 at 09:15 Acetaminophen/ Codeine Phosphate (Tylenol #3) 1 tab PRN Q6HRS PRN PO MODERATE PAIN; Start 08/08/18 at 09:15 Ondansetron HCl (Zofran) 4 mg PRN Q6HRS PRN IV NAUSEA/VOMITING; Start 08/08/18 at 09:15 Ondansetron HCl (Zofran Odt) 4 mg PRN Q6HRS PRN PO NAUSEA/VOMITING; Start 08/08 at 09:15 Labetalol HCl (Normodyne Iv Push) 10 mg PRN Q2HR PRN IVP HYPERTENSION, SEE COMMENTS; Start 08/08/18 at 09:15 Lisinopril (Prinivil) 10 mg DAILY PO Last administered on 08/12/18at 08:37; Start 08/08/18 at 11:00 Active Scripts Active Ferrous Sulfate 325 Mg Tablet 1 Tab PO DAILY Levaquin (Levofloxacin) 500 Mg Tablet 500 Mg PO DAILY06 10 Days Reported Lantus Solostar (Insulin Glargine,Hum.rec.anlog) 100 Unit/1 Ml Insuln.pen 20 Unit SQ HS Hydralazine Hcl 50 Mg Tablet 50 Mg PO BID Amlodipine Besylate 10 Mg Tablet 10 Mg PO DAILY Lisinopril 40 Mg Tablet 40 Mg PO BID Atorvastatin Calcium 40 Mg Tablet 40 Mg PO HS Aspirin 81 Mg Tab.chew 81 Mg PO DAILY Humalog Kwikpen (Insulin Lispro) 200 Unit/1 Ml Insuln.pen 5 Unit SQ TIDWMEALS Tramadol Hcl 50 Mg Tablet 2 Tab PO PRN Q6HRS Protonix (Pantoprazole Sodium) 20 Mg Tablet.dr 2 Tab PO DAILY Docusate Sodium 100 Mg Capsule 1 Cap PO PRN DAILY PRN Carvedilol (Carvedilol) 12.5 Mg Tablet 1 Tab PO BID Eliquis (Apixaban) 5 Mg Tab.ds.pk 5 Mg PO BID Hydrocodone-Apap 7.5-325 (Hydrocodone Bit/Acetaminophen) 1 Each Tablet 1 Tab PO PRN Q4HRS PRN Vitals/I & O Vital Sign - Last 24 Hours 08/11/18 08/11/18 08/11/18 08/11/18 15:00 16:52 19:00 20:00 Temp 98.1 98.3 98.1 98.3 Pulse 74 74 76 Resp 16 18 B/P (MAP) 137/75 (95) 137/75 136/64 (88) Pulse Ox 99 99 O2 Delivery Room Air Room Air Room Air 08/11/18 08/11/18 08/12/18 08/12/18 20:49 23:59 03:00 07:00 Temp 97.5 97.9 98.4 97.5 97.9 98.4 Pulse 76 77 77 58 Resp 16 18 18 B/P (MAP) 136/64 136/67 (90) 141/66 (91) 137/68 (91) Pulse Ox 96 98 97 O2 Delivery Room Air Room Air Room Air 08/12/18 08/12/18 08/12/18 3/19/19 08:00 08:30 08:31 08:31 Pulse 58 58 58 B/P (MAP) 137/68 137/68 137/68 O2 Delivery Room Air 08/12/18 08/12/18 08:37 11:00 Temp 98.4 98.4 Pulse 58 71 Resp 18 B/P (MAP) 137/68 117/60 (79) Pulse Ox 97 O2 Delivery Room Air Intake and Output 08/11/18 08/11/18 08/12/18 14:59 22:59 06:59 Intake Total 500 ml Output Total 400 ml Balance 100 ml LILIYA MEAD MD Aug 12, 2018 12:14
[2018-08-12 15:00] VITALS: BP 121/66
--- NOTE | 2018-08-12 17:04 | PDOC3 ---
Discharge Summary Visit Information Date of Admission: Aug 06, 2018 Date of Discharge: Aug 12, 2018 Admitting Diagnosis Comment: encephalopathy, acute, from bleed Intracranial hemmorrhage, on Eliquis, reversal given Final Diagnosis Stable basal ganglia hemorrhage, films 08/07/18, repeat CT on 08/11/2018 with similar slightly improved findings Intracranial hemorrhage, acute., Improved Headaches, MILD Facial droop with accelerated hypertension Accel hypertension, uncontrolled, noncompliance, no PCP AK I on CK D secondary to long-standing hypertension Acute right caudate nuclear and central semiovale hemorrhage. Metabolic encephalopathy. Near hypertensive urgency, BP 198/101 mmHg. Hx of AFib on Eliquis. Currently on hold UTI. Renal failure. 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 Tobacco use. Brief Hospital Course Allergies Allergies Coded Allergies Type Severity Reaction Last Updated Verified piperacillin Allergy Intermediate 10/07/17 Yes tazobactam Allergy Intermediate 07/15/17 Yes vancomycin Allergy Intermediate 01/26/17 Yes Vital Signs Vital Signs Date Time Temp Pulse Resp B/P (MAP) Pulse Ox O2 Delivery O2 Flow Rate FiO2 08/12/18 15:00 98.1 72 18 121/66 (84) 97 Room Air 98.1 Lab Results Laboratory Tests Test 08/10/18 20:12 08/11/18 02:30 08/11/18 07:18 08/11/18 11:29 Glucose (Fingerstick) 165 mg/dL (70-99) 41 mg/dL (70-99) 133 mg/dL (70-99) Sodium Level 136 mmol/L (136-145) Potassium Level 4.4 mmol/L (3.5-5.1) Chloride Level 105 mmol/L (98-107) Carbon Dioxide Level 23 mmol/L (21-32) Anion Gap 8 (6-14) Blood Urea Nitrogen 42 mg/dL (8-26) Creatinine 3.7 mg/dL (0.7-1.3) Estimated GFR (Cockcroft-Gault) 21.0 Glucose Level 136 mg/dL (70-99) Calcium Level 8.1 mg/dL (8.5-10.1) Test 08/11/18 16:30 08/11/18 19:59 08/12/18 08:21 08/12/18 09:40 Glucose (Fingerstick) 190 mg/dL (70-99) 242 mg/dL (70-99) 160 mg/dL (70-99) Sodium Level 136 mmol/L (136-145) Potassium Level 4.6 mmol/L (3.5-5.1) Chloride Level 104 mmol/L (98-107) Carbon Dioxide Level 24 mmol/L (21-32) Anion Gap 8 (6-14) Blood Urea Nitrogen 44 mg/dL (8-26) Creatinine 3.6 mg/dL (0.7-1.3) Estimated GFR (Cockcroft-Gault) 21.7 Glucose Level 157 mg/dL (70-99) Calcium Level 8.0 mg/dL (8.5-10.1) Test 08/12/18 11:36 08/12/18 16:22 Glucose (Fingerstick) 138 mg/dL (70-99) 147 mg/dL (70-99) Laboratory Tests Test 08/11/18 19:59 08/12/18 08:21 08/12/18 09:40 08/12/18 11:36 Glucose (Fingerstick) 242 mg/dL (70-99) 160 mg/dL (70-99) 138 mg/dL (70-99) Sodium Level 136 mmol/L (136-145) Potassium Level 4.6 mmol/L (3.5-5.1) Chloride Level 104 mmol/L (98-107) Carbon Dioxide Level 24 mmol/L (21-32) Anion Gap 8 (6-14) Blood Urea Nitrogen 44 mg/dL (8-26) Creatinine 3.6 mg/dL (0.7-1.3) Estimated GFR (Cockcroft-Gault) 21.7 Glucose Level 157 mg/dL (70-99) Calcium Level 8.0 mg/dL (8.5-10.1) Test 08/12/18 16:22 Glucose (Fingerstick) 147 mg/dL (70-99) Brief Hospital Course Mr. Campuzano is a 52 old male who presented with the above-mentioned diagnoses of encephalopathy secondary to the intracranial hemorrhage. Patient had been on Eliquis and this was reversed. Patient was admitted to the ICU where he recovered from this insult. Dr. German saw the patient in consultation repeat CAT scans improved the stable nature of basal ganglia hemorrhage and the patient did not require intervention from the neurosurgical standpoint of view. He was seen by neurology as well and by Dr. Garcia due to acute kidney injury secondary to his long-standing history of hypertension. The patient initially was going to be transitioned to a rehabilitation facility but patient has recovered quite well and he will be going home with home health services. His mother is a very good caregiver and he is very involved in her son's care. Signs and symptoms of alarm were discussed prior to discharge blood pressure has been better controlled throughout the last 48 hours. He is very somnolent during my visits on the last 2 days of his hospital stay. All concerns were addressed with his mother at bedside since she seems to be more engaged in conversation. I recommended following up with primary care physician within one week CONCERNS were addressed to the best of my abilities Discharge Information Condition at Discharge: Improved Follow Up: Weeks Disposition/Orders: D/C to Home Scheduled Amlodipine Besylate (Amlodipine Besylate) 10 Mg Tablet, 10 MG PO DAILY, ( Reported) Entered as Reported by: MICHEAL ARCHER on 07/18/171714 Last Action: Continued on 08/06/182049 by TOAN CALDERA Apixaban (Eliquis) 5 Mg Tab.ds.pk, 5 MG PO BID, (Reported) Entered as Reported by: YOUSIF WOODS on 07/15/172229 Last Action: HELD on 08/06/182049 by TOAN CALDERA Aspirin (Aspirin) 81 Mg Tab.chew, 81 MG PO DAILY, (Reported) Entered as Reported by: MICHEAL ARCHER on 07/18/171712 Last Action: HELD on 08/06/182049 by TOAN CALDERA Atorvastatin Calcium (Atorvastatin Calcium) 40 Mg Tablet, 40 MG PO HS for FOR CHOLESTEROL, #30 Ref 0 (Reported) Entered as Reported by: MICHEAL ARCHER on 07/18/171712 Last Action: Continued on 08/06/182049 by TOAN CALDERA Carvedilol (Carvedilol ) 12.5 Mg Tablet, 1 TAB PO BID, #180 Ref 1 (Reported) Entered as Reported by: YOUSIF WOODS on 07/15/172229 Last Action: Continued on 08/06/182049 by TOAN CALDERA Ferrous Sulfate (Ferrous Sulfate) 325 Mg Tablet, 1 TAB PO DAILY, #30 Ref 3 Prescribed by: CELY BLACKWELL on 10/07/171149 Last Action: HELD on 08/06/182049 by TOAN CALDERA Hydralazine Hcl (Hydralazine Hcl) 50 Mg Tablet, 50 MG PO BID, (Reported) Entered as Reported by: MICHEAL ARCHER on 07/18/171714 Last Action: Converted on 08/06/182049 by TOAN CALDERA Insulin Glargine,Hum.rec.anlog (Lantus Solostar) 100 Unit/1 Ml Insuln.pen, 20 UNIT SQ HS, (Reported) Entered as Reported by: MICHEAL ARCHER on 07/18/171718 Last Action: Continued on 08/06/182049 by TOAN CALDERA Insulin Lispro (Humalog Kwikpen) 200 Unit/1 Ml Insuln.pen, 5 UNIT SQ TIDWMEALS, (Reported) Entered as Reported by: YOUSIF WOODS on 07/15/172229 Last Action: Converted on 08/06/182049 by TOAN CALDERA Levofloxacin (Levaquin) 500 Mg Tablet, 500 MG PO DAILY06 for 10 Days, #10 Prescribed by: CELY BLACKWELL on 10/07/171149 Last Action: HELD on 08/06/182049 by TOAN CALDERA Lisinopril (Lisinopril) 40 Mg Tablet, 40 MG PO BID for FOR HYPERTENSION, #30 Ref 0 (Reported) Entered as Reported by: MICHEAL ARCHER on 07/18/171713 Last Action: Continued on 08/06/182049 by TOAN CALDERA Pantoprazole Sodium (Protonix) 20 Mg Tablet.dr, 2 TAB PO DAILY, #30 (Reported) Entered as Reported by: YOUSIF WOODS on 07/15/172229 Last Action: Converted on 08/06/182049 by TOAN CALDERA Tramadol Hcl (Tramadol Hcl) 50 Mg Tablet, 2 TAB PO PRN Q6HRS, #30 (Reported) Entered as Reported by: YOUSIF WOODS on 07/15/172229 Last Action: HELD on 08/06/182049 by TOAN CALDERA Scheduled PRN Docusate Sodium (Docusate Sodium) 100 Mg Capsule, 1 CAP PO PRN DAILY PRN for CONSTIPATION, #30 (Reported) Entered as Reported by: YOUSIF WOODS on 07/15/172229 Last Action: Continued on 08/06/182049 by TOAN CALDERA Hydrocodone Bit/Acetaminophen (Hydrocodone-Apap 7.5-325 ) 1 Each Tablet, 1 TAB PO PRN Q4HRS PRN for PAIN, Ref 0 (Reported) Entered as Reported by: YOUSIF WOODS on 07/15/172229 Last Action: Continued on 08/06/182049 by YOLANDA LEZAMA MD Aug 12, 2018 17:04
--- NOTE | 2018-08-12 17:07 | SNU/HH DC ---
DISCHARGE WITH HOME HEALTH DISCHARGE INFORMATION: Discharge Date: Aug 12, 2018 Final Diagnosis: Problems Medical Problems: (1) Zfjeo-mp-plyrccp renal failure Status: Acute (2) Intracranial hemorrhage Status: Acute Condition on Discharge: Stable CODE STATUS: Code Status: Full HOME HEALTH: Face to Face: I certify this patient is under my care and that I, or a nurse practitioner or physician's observation assistant working with me, had a face to face encounter that meets the physician face to face encounter requirements with this patient on []. Medical Complications: CVA, HTN Physical Therapy For: Evalulation/Treatment Occupational Therapy For: Evaluation/Treatment Home Health Aide For: Self-care POST DISCHARGE ORDERS: Activity Instructions for Disc: Resume previous activity CHECKS AFTER DISCHARGE: Checks after discharge: Check blood press - daily, Check blood sugar, ac/hs CERTIFICATION STATEMENT: Certification Statement: Certification Statement: Based on the above finding, I certify that this patient is confined to the home and needs intermittent chcf care, physical therapy and/or speech therapy, or continues to need occupational therapy.~ This patient is under my care, and I have initiated the establishment of the plan of care.~ This patient will be followed by myself or a community physician who will periodically review the plan of care. Home Meds Active Scripts Ferrous Sulfate (FERROUS SULFATE) 325 Mg Tablet, 1 TAB PO DAILY, #30 TAB 3 Refills Prov:CELY BLACKWELL MD 10/07/17 Reported Medications Insulin Glargine,Hum.rec.anlog (LANTUS SOLOSTAR) 100 Unit/1 Ml Insuln.pen, 20 UNIT SQ HS, SYR 07/18/17 Hydralazine Hcl (HYDRALAZINE HCL) 50 Mg Tablet, 50 MG PO BID, TAB 07/18/17 Amlodipine Besylate (AMLODIPINE BESYLATE) 10 Mg Tablet, 10 MG PO DAILY, TAB 07/18/17 Lisinopril (LISINOPRIL) 40 Mg Tablet, 40 MG PO BID for FOR HYPERTENSION, #30 TAB 0 Refills 07/18/17 Atorvastatin Calcium (ATORVASTATIN CALCIUM) 40 Mg Tablet, 40 MG PO HS for FOR CHOLESTEROL, #30 TAB 0 Refills 07/18/17 Aspirin (ASPIRIN) 81 Mg Tab.chew, 81 MG PO DAILY, TAB.CHEW 07/18/17 Insulin Lispro (Humalog Kwikpen) 200 Unit/1 Ml Insuln.pen, 5 UNIT SQ TIDWMEALS, EACH 07/15/17 Tramadol Hcl (TRAMADOL HCL) 50 Mg Tablet, 2 TAB PO PRN Q6HRS, #30 TAB 07/15/17 Pantoprazole Sodium (PROTONIX) 20 Mg Tablet.dr, 2 TAB PO DAILY, #30 TAB 07/15/17 Docusate Sodium (DOCUSATE SODIUM) 100 Mg Capsule, 1 CAP PO PRN DAILY PRN for CONSTIPATION, #30 CAP 07/15/17 Carvedilol (CARVEDILOL ) 12.5 Mg Tablet, 1 TAB PO BID, #180 TAB 1 Refill 07/15/17 Hydrocodone Bit/Acetaminophen (HYDROCODONE-APAP 7.5-325 ) 1 Each Tablet, 1 TAB PO PRN Q4HRS PRN for PAIN, TAB 0 Refills 07/15/17 Discontinued Reported Medications Apixaban (Eliquis) 5 Mg Tab.ds.pk, 5 MG PO BID, PKG 07/15/17 Discontinued Scripts Levofloxacin (LEVAQUIN) 500 Mg Tablet, 500 MG PO DAILY06 for 10 Days, #10 TAB Prov:CELY BLACKWELL MD 10/07/17 YOLANDA SÁNCEHZ MD Aug 12, 2018 17:07
[2018-08-12 17:13] VITALS: BP 121/66
--- NOTE | 2018-08-12 18:08 | NUR ---
Discharge instructions and belongings reviewed with patient and his mother, both verbalized understanding. Patient was escorted via wheelchair out of the hospital by Leah SIM accompanied by his mother.
== END 2018-08-12 18:29 | disposition home health service (06) | DRG 64 ==
LOC: ER 16:50 → 1 WEST ICU 17:50 → 4 NORTH 08-07 16:23
PROVIDERS: ADMIT Internal Medicine; ATTEND Internal Medicine
DX: I61.0 Nontraumatic intracerebral hemorrhage in hemisphere, subcortical (principal); G93.41 Metabolic encephalopathy; N17.9 Acute kidney failure, unspecified; N39.0 Urinary tract infection, site not specified; I13.0 Hypertensive heart and chronic kidney disease with heart failure and stage 1 through stage 4 chronic kidney disease, or unspecified chronic kidney disease; I50.32 Chronic diastolic (congestive) heart failure; G81.94 Hemiplegia, unspecified affecting left nondominant side; E11.22 Type 2 diabetes mellitus with diabetic chronic kidney disease; I16.0 Hypertensive urgency; N18.3 Chronic kidney disease, stage 3 (moderate); R80.9 Proteinuria, unspecified; D63.8 Anemia in other chronic diseases classified elsewhere; F17.210 Nicotine dependence, cigarettes, uncomplicated; E78.00 Pure hypercholesterolemia, unspecified; E78.5 Hyperlipidemia, unspecified; I48.91 Unspecified atrial fibrillation; M19.90 Unspecified osteoarthritis, unspecified site; Z79.01 Long term (current) use of anticoagulants; Z79.4 Long term (current) use of insulin; Z86.73 Personal history of transient ischemic attack (TIA), and cerebral infarction without residual deficits; Z91.19 Patient's noncompliance with other medical treatment and regimen; Z89.429 Acquired absence of other toe(s), unspecified side; Z88.8 Allergy status to other drugs, medicaments and biological substances
CPT/HCPCS: 36415; 70450; 71045; 76770; 80047; 80048; 80053; 80307; 81001; 82553; 82962; 83036; 83605; 83735; 83880; 84443; 84484; 85025; 85610; 85730; 87040; 87641; 93005; 96374; 96375; 99291; J1815; J3490; J7030; J7042; J7050; J7194; 97110; 97116; 97530; 97535

== ENCOUNTER → 2019-02-05 | Outpatient (CLI) | payer MEDICARE ==
[~2019-02-05] MED LIST changes: +REGADENOSON 0.4 MG/5 ML DISP.SYRIN. IV ONE
--- NOTE | 2019-02-05 10:18 | CARD ---
MR#: [id number] Date of Study: 02/05/2019 Ordering Physician: CLARA CHE, Referring Physician: CLARA CHE, Tech: Marci Barnes APPROVED REPORT EXAM: Two-dimensional and M-mode echocardiogram with Doppler and color Doppler. Other Information Quality : GoodHR: 69bpm INDICATION Atrial Fibrillation RISK FACTORS Hypertension Hyperlipidemia Diabetes Quit smoking 2 months ago 2D DIMENSIONS RVDd3.7 (2.9-3.5cm)Left Atrium(2D)4.7 (1.6-4.0cm) IVSd1.4 (0.7-1.1cm)Aortic Root(2D)3.0 (2.0-3.7cm) LVDd5.7 (3.9-5.9cm)LVOT Diameter2.1 (1.8-2.4cm) PWd1.6 (0.7-1.1cm)LVDs3.9 (2.5-4.0cm) FS (%) 31.7 %SV94.2 ml LVEF(%)59.1 (>50%) Aortic Valve AoV Peak Tommie.130.4cm/sAoV VTI25.7cm AO Peak GR.6.8mmHgLVOT Peak Tommie.108.7cm/s LVOT VTI 22.24cmAO Mean GR.4mmHg LYNN (VMAX)2.52vp7TXR (VTI)2.97cm2 AI P 1/2 Xpcu227xm Mitral Valve MV E Bpjtlqqc787.5cm/sMV E Peak Gr.66mmHg MV DECEL DTVF720twUA A Abamwphb90.7cm/s MV E Mean Gr.2mmHgMV WRN48mi E/A Ratio3.2MVA (PHT)4.21cm2 TDI E/Lateral E'17.5E/Medial E'17.2 Pulmonary Valve PV Peak Algyxjnl32.8cm/sPV Peak Grad.4mmHg Tricuspid Valve TR P. Zbdbsvgv873sf/sRAP KTSTACXN8rnSq TR Peak Gr.26yvHxTDMW36gaUh Pulmonary Vein S1 Cczgjkdt11.2cm/sD2 Aaahjnro85.4cm/s PVa rlqdkwik592flcw LEFT VENTRICLE The left ventricle is normal size. There is moderate concentric left ventricular hypertrophy. The lef t ventricular systolic function is normal. The Ejection Fraction is 55-60%. There is normal LV segmen jessica wall motion. RIGHT VENTRICLE The right ventricle is borderline dilated. There is normal right ventricular wall thickness. The righ t ventricular systolic function is normal. ATRIA The left atrium is moderately dilated. The right atrium is mildly dilated. The interatrial septum is intact with no evidence for an atrial septal defect or patent foramen ovale as noted on 2-D or Dopple r imaging. AORTIC VALVE The aortic valve is normal in structure and function. Doppler and Color Flow revealed mild aortic reg urgitation. There is no significant aortic valvular stenosis. MITRAL VALVE The mitral valve is normal in structure and function. There is no evidence of mitral valve prolapse. There is no mitral valve stenosis. Doppler and Color-flow revealed trace to mild mitral regurgitation . TRICUSPID VALVE The tricuspid valve is normal in structure and function. Doppler and Color Flow revealed mild to mode rate tricuspid regurgitation with an estimated PAP of 54 mmHg. There is moderate pulmonary hypertensi on. There is no tricuspid valve stenosis. PULMONIC VALVE The pulmonary valve is normal in structure and function. Doppler and Color Flow revealed trace to mil d pulmonic valvular regurgitation. GREAT VESSELS The aortic root is normal in size. The IVC is normal in size and collapses >50% with inspiration. PERICARDIAL EFFUSION There is no evidence of significant pericardial effusion. Critical Notification Critical Value: No <Conclusion> The left ventricular systolic function is normal. The Ejection Fraction is 55-60%. There is normal LV segmental wall motion. The left atrium is moderately dilated. Mild aortic regurgitation. Trace to mild mitral regurgitation. Mild to moderate tricuspid regurgitation with an estimated PAP of 54 mmHg. There is moderate pulmonary hypertension. There is no evidence of significant pericardial effusion. Signed by : Clara Che, Electronically Approved : 02/05/2019 10:17:32
--- NOTE | 2019-02-05 13:06 | RAD ---
MR#: [id number] Date of Study: 02/05/2019 Ordering Physician: CLARA BALTAZAR, Referring Physician: AMIE BRICE Tech: RT Silver (R) (N) APPROVED REPORT Test Type: Pharmacological Stress Nurse/Tech: Dawna Lawrence R.N. Test Indications: Paroxymal a fib Cardiac History: Hypertension, Diabetes, former smoker Medications: See Electronic Medical Record Medical History: See Electronic Medical Record Resting ECG: NSR Resting Heart Rate: 67 bpm Resting Blood Pressure: 139/73mmHg Pretest Chest Pain: No chest pain Nurse/Tech Notes S1S2, lungs sound clear Consent: The procedure was explained to the patient in lay terms. Informed consent was witnessed. Mike eout was entered into [facility]. History and Stress Test performed by Dawna Lawrence R.N. Pharm. Details Pharmacologic stress testing was performed using 0.4mg per 5ml of regadenoson given intravenously ove r 7-10 seconds. Stress Symptoms No chest pain or symptoms. POST EXERCISE Reason for Termination: Infusion complete Target HR: 141 Max HR: 85 bpm Max Blood Pressure: 140/59mmHg Blood Pressure response to exercise: Normal blood pressure response during stress. Chest Pain: No. Arrhythmia: No. ST Change: No. INTERPRETATION Stress EKG Conclusion: The resting EKG shows a sinus rhythm with LVH and repolarization. The stress EKG shows no significant changes from baseline. No EKG evidence of stress-induced ischemia. Imaging Protocol IMAGE PROTOCOL: Rest Tc-99m/stress Tc-99m 1 day Rest: Stress: Viability: Radiopharm.Tc99m JfuujysgrBx11b Sestamibi Dose10.5mCi 32mCi Duration 15min. 15min. Img Date 02/05/2019 02/05/2019 Inj-Img Zzxp18jxy. 60min. Rest Admin Site:IV - Right AntecubitalAdministrator:RT Amparo (R)(N) Stress Admin Site: IV - Right AntecubitalAdministrator: RT Amparo (R)(N) STRESS DATA End Diast. Vol.242.0mlLVEDV index ASS656.0ml End Syst. Vol.133.0mlLVESV index BSA69.0ml Myocardial Idaj259.0gEject. Ivgyvcmg73.0% Stress Scores Regional WT3.00Summed WT31.00 Regional WM2.00Summed WM6.00 LV Perfusion The stress scans show mild inferior wall thinning. The rest scans show mild inferior wall thinning. Nuclear imaging shows no significant reversible ischemia. Nuclear imaging shows mild fixed inferior wall thinning Wall Motion Left ventricular systolic function is mildly decreased at 45% with minimal global hypokinesis. LV Perf. Quant 17 Seg. SSS7.00 17 Seg. SRS0.00 17 Seg. SDS7.00 Stress Defect Extent (% LAD)3.10Rest Defect Extent (% LAD)0.00Rev. Defect Extent (% LAD)3.10 Stress Defect Extent (% LCX) 52.50Rest Defect Extent (% LCX)0.00Rev. Defect Extent (% LCX)50.00 Stress Defect Extent (% RCA)0.00Rest Defect Extent (% RCA)0.00Rev. Defect Extent (% RCA)0.00 Stress Defect Extent (% PATRICIA)10.70Rest Defect Extent (% PATRICIA)0.00Rev. Defect Extent (% PATRICIA)10.20 Conclusion 1. Baseline abnormal EKG but no EKG evidence of stress-induced ischemia. 2. Nuclear imaging shows no reversible ischemia. 3. Nuclear imaging shows mild fixed inferior wall thinning possibly due to an technical artifact but a small inferior infarct cannot be entirely excluded. 4. Mildly decreased LV systolic function with mild global hypokinesis and an ejection fraction of 45% . 5. Moderate to moderately low risk Lexiscan nuclear stress test. Signed by : Alpesh Lynn MD Electronically Approved : 02/05/2019 13:05:47
== END | disposition home or self-care (01) ==
LOC: NM 07:43
PROVIDERS: ATTEND Internal Medicine Cardiovascular Disease
DX: I08.8 Other rheumatic multiple valve diseases (principal); I11.9 Hypertensive heart disease without heart failure; I27.20 Pulmonary hypertension, unspecified; I48.0 Paroxysmal atrial fibrillation; E11.9 Type 2 diabetes mellitus without complications; Z87.891 Personal history of nicotine dependence
CPT/HCPCS: 78452; 93017; 93306; A9500; J2785

== ENCOUNTER → 2020-02-22 | Outpatient (CLI) | payer MEDICARE ==
[~2020-02-22] MED LIST changes: -REGADENOSON 0.4 MG/5 ML DISP.SYRIN. IV ONE
--- NOTE | 2020-02-22 14:45 | RAD ---
PA and lateral chest x-ray compared to portable examination dated August 06, 2018 for chronic kidney disease. FINDINGS: Cardiomegaly is noted. There is central vascular congestion suggestive of interstitial pulmonary edema. No pleural effusions prominence of perihilar vasculature bilaterally suggesting developing interstitial pulmonary edema. No pleural effusions. IMPRESSION: 1. Developing perihilar vascular congestion/interstitial edema, and cardiomegaly. No thiago pleural effusions and no definite pneumonic infiltrates. Electronically signed by: Derek Croft MD (02/22/2020 2:42 PM) [id number]
== END | disposition home or self-care (01) ==
LOC: RAD 08:55
PROVIDERS: ATTEND Internal Medicine
DX: N18.5 Chronic kidney disease, stage 5 (principal); I51.7 Cardiomegaly
CPT/HCPCS: 71046

== ENCOUNTER → 2020-04-27 | Outpatient (CLI) | payer MEDICARE ==
[~2020-04-27] MED LIST changes: +AMLO-186 PO; +AMLO-187 PO; -AMLO10TA8 PO; -AMLO5TAB10 PO
--- NOTE | 2020-04-28 11:18 | CARD ---
MR#: [id number] Date of Study: 04/27/2020 Ordering Physician: CLARA BALTAZAR, Referring Physician: CLARA BALTAZAR, Tech: Jennie Hendrix MONA APPROVED REPORT EXAM: Two-dimensional and M-mode echocardiogram with Doppler and color Doppler. Other Information Quality : ExcellentHR: 78bpm Rhythm : NSR INDICATION Paroxsysmal Afib. Hx: CVA, HTN, HLP. 2D DIMENSIONS RVDd3.9 (2.9-3.5cm)IVSd1.7 (0.7-1.1cm) Aortic Root(2D)3.1 (2.0-3.7cm)LVDd5.3 (3.9-5.9cm) LVOT Diameter2.2 (1.8-2.4cm)PWd1.7 (0.7-1.1cm) LVDs3.7 (2.5-4.0cm)FS (%) 30.5 % SV79.1 mlLVEF(%)57.4 (>50%) Aortic Valve AoV Peak Tommie.155.1cm/Billy Peak GR.9.6mmHg LVOT Peak Tommie.125.4cm/sAVA (VMAX)3.01cm2 Mitral Valve MV E Ykioquzu789.6cm/sMV DECEL RCDB704az MV A Mtdjhegn71.3cm/sE/A Ratio2.6 MV A Lztrhiqt12we Pulmonary Valve PV Peak Udrygtpk05.0cm/s Tricuspid Valve TR P. Difkckgz141pa/sRAP YBNNPZVE11lpCf TR Peak Gr.05rfJjIVOP71byIe Pulmonary Vein S1 Szcvpypj67.0cm/sD2 Knposirs08.9cm/s LEFT VENTRICLE The left ventricle is normal size. There is severe concentric left ventricular hypertrophy. Left vent ricle systolic function is normal. The Ejection Fraction is 60-65%. There is normal LV segmental wall motion. Tissue Doppler imaging reveals severe left ventricular diastolic dysfunction. RIGHT VENTRICLE The right ventricle is normal size. The right ventricular systolic function is normal. ATRIA The left atrium is severely dilated. The right atrium is mildly dilated. The interatrial septum is in tact with no evidence for an atrial septal defect or patent foramen ovale as noted on 2-D or Doppler imaging. AORTIC VALVE The aortic valve is normal in structure and function. No aortic regurgitation. No aortic valvular jerardo nosis. MITRAL VALVE The mitral valve is normal in structure and function. Mild to moderate mitral annular calcification. There is no mitral valve stenosis. Mild to moderate mitral regurgitation. TRICUSPID VALVE The tricuspid valve is normal in structure. Mild to moderate tricuspid regurgitation. The PA pressure was estimated at 40-45mmHg. There is no tricuspid valve stenosis. PULMONIC VALVE The pulmonary valve is normal in structure and function. Mild pulmonic valvular regurgitation. There is no pulmonic valvular stenosis. GREAT VESSELS The aortic root is normal in size. The ascending aorta is normal in size. The IVC is dilated and denys apses >50% with inspiration. PERICARDIAL EFFUSION There is a trace pericardial effusion. Critical Notification Critical Value: No <Conclusion> There is severe concentric left ventricular hypertrophy. Left ventricle systolic function is normal. The Ejection Fraction is 60-65%. There is normal LV segmental wall motion. Tissue Doppler imaging reveals severe left ventricular diastolic dysfunction. Mild to moderate tricuspid regurgitation. The PA pressure was estimated at 40-45mmHg. There is a trace pericardial effusion. Consider evaluation for hypertrophic cardiomyopathy. Signed by : Neville Asher, Electronically Approved : 04/28/2020 11:18:13
== END ==
LOC: ECHO 12:46
PROVIDERS: ATTEND Internal Medicine Cardiovascular Disease
DX: I08.8 Other rheumatic multiple valve diseases (principal); I11.9 Hypertensive heart disease without heart failure; I48.0 Paroxysmal atrial fibrillation; I31.3 Pericardial effusion (noninflammatory)
CPT/HCPCS: 93306

== ENCOUNTER → 2021-09-08 | Day surgery (SDC) | payer MEDICARE ==
[~2021-09-08] VITALS: Ht 175.3 cm; Wt 78.0 kg
[~2021-09-08] MED LIST changes: +APIX5TAB PO; +FOLI0.8T21 PO; +IV NORMAL SALINE 1000ML BAG 1,000 ML IV SCH; +IV RINGERS,LACTATED 1000ML 1,000 ML IV SCH; +LIDOCAINE 2% PF 5 ML VIAL. ONE; -LISI-334 PO; +LISI20TA18 PO; +METO-239 PO; +MIRT-7 PO; +PANT40TA77 PO; +PROPOFOL 10 MG/ML (20ML) VIAL. IV ONE
[2021-09-08 08:01] VITALS: BP 119/65
[2021-09-08 09:35] VITALS: BP 159/65
== END | disposition home or self-care (01) ==
LOC: ENDOS 07:18
PROVIDERS: ATTEND Internal Medicine Gastroenterology
DX: Z12.11 Encounter for screening for malignant neoplasm of colon (principal); K64.0 First degree hemorrhoids; K63.89 Other specified diseases of intestine; I12.9 Hypertensive chronic kidney disease with stage 1 through stage 4 chronic kidney disease, or unspecified chronic kidney disease; N18.9 Chronic kidney disease, unspecified; I48.91 Unspecified atrial fibrillation; G47.30 Sleep apnea, unspecified; E11.9 Type 2 diabetes mellitus without complications; E03.9 Hypothyroidism, unspecified; Z87.440 Personal history of urinary (tract) infections; Z90.49 Acquired absence of other specified parts of digestive tract; Z98.890 Other specified postprocedural states; Z79.4 Long term (current) use of insulin; Z79.899 Other long term (current) drug therapy; Z88.8 Allergy status to other drugs, medicaments and biological substances
CPT/HCPCS: G0121; J2704; 45378